=== PATIENT | female | born 1970 | race Caucasian/White ===

== ENCOUNTER 2023-03-24 20:22 | Emergency (ER) | payer SELFPAY ==
[2023-03-24 20:28] VITALS: BP 230/100; PULSE 73; RESP 18; TEMP 36.8; O2SAT 95; BMI 31.9
--- NOTE | 2023-03-24 20:38 | XR_ITS ---
The [address] [address] Patient Name: JUAN ARMSTRONG MRN: [id number] date: 1970 Sex: F Assigned Patient Location: ER Current Patient Location: ER Accession/Order Number: [id number] Exam Date: 03/24/2023 21:00 Report Date: 03/24/2023 21:20 At the request of: IRASEMA FRANCO Procedure: XR chest 1V EXAMINATION: XR chest 1V HISTORY: Abdominal pain COMPARISON: None. TECHNIQUE: Portable chest FINDINGS: The lung parenchyma is free of consolidation or infiltrate. No pneumothorax or pleural effusion. The cardiac, mediastinal and hilar contours are normal. The visualized osseous structures exhibit no gross abnormality. XR/XR chest 1V IMPRESSION: No acute cardiopulmonary abnormality. Electronically authenticated by: DOREEN CRAWFORD Date: 03/24/2023 21:20
--- NOTE | 2023-03-24 20:39 | CT_ITS ---
The [address] [address] Patient Name: JUAN ARMSTRONG MRN: [id number] date: 1970 Sex: F Assigned Patient Location: ER Current Patient Location: Accession/Order Number: [id number] Exam Date: 03/24/2023 21:00 Report Date: 03/24/2023 21:38 At the request of: IRASEMA FRANCO Procedure: CT abdomen pelvis w con EXAM: CT scan of the abdomen and pelvis using 100 mL of IV iodinated contrast. Dose reduction technique used: Automated exposure control and/or adjustment of the mA and/or kV according to patient size and/or use of iterative reconstruction technique. REASON FOR EXAM: abdominal pain COMPARISON: None FINDINGS: Mild diffuse colonic wall thickening. Left oophorectomy. Cholecystectomy. Normal appendix. No free fluid in the abdomen or pelvis. No free intraperitoneal air. No dilated loops of small bowel or colon. No hydronephrosis or obstructing renal or ureteral calculi. Liver, pancreas, spleen, bilateral kidneys, and bilateral adrenal glands are otherwise unremarkable. No lymphadenopathy in the abdomen or pelvis. Remainder unremarkable. CT/CT abdomen pelvis w con IMPRESSION: 1. Findings suggestive of colitis, correlate clinically. 2. Otherwise, no other acute abnormalities in the abdomen or pelvis. Electronically authenticated by: RENÉE CURRIE Date: 03/24/2023 21:38
[2023-03-24 20:49] LABS: Basophils Percent Auto 0.2 % (0.2-2.0); Eosinophils Percent Auto 0.3 % (0.9-7.0); Hematocrit 48.3 % (36.0-48.0); Hemoglobin 16.3 g/dL (12.0-16.0); Immature Granulocytes Abs Auto 0.02 10^3/uL (0.00-0.03); Immature Granulocytes Pct Auto 0.2 % (0.0-0.5); Lymphocytes Absolute Auto 2.5 10^3/uL (1.2-3.8); Lymphocytes Percent Auto 28.1 % (20.5-60.0); Mean Corpuscular HGB Conc 33.7 g/dL (29.9-35.2); Mean Corpuscular Hemoglobin 30.6 pg (26.7-34.0); Mean Corpuscular Volume 90.8 fL (81.0-99.0); Mean Platelet Volume 9.4 fL (9.5-13.5); Monocytes Absolute Auto 0.5 10^3/uL (0.3-0.8); Monocytes Percent Auto 5.7 % (1.7-12.0); Neutrophils Absolute Auto 5.7 10^3/uL (1.4-6.5); Neutrophils Percent Auto 65.5 % (43.0-75.0); Platelet Count 215 10^3/uL (150-450); Red Blood Count 5.32 10^6/uL (4.20-5.40); Red Cell Distribution Width 14.8 % (11.0-15.0); White Blood Count 8.7 10^3/uL (4.0-11.0)
--- NOTE | 2023-03-24 20:49 | ED.ABDPAIN1 ---
HPI - Abdominal Pain General Chief Complaint: Abdominal Pain Stated Complaint: Abdominal Pain Time Seen by Provider: 03/24/23 20:33 Source: patient Mode of arrival: walk-in Limitations: no limitations History of Present Illness HPI narrative: presents complaining of abdominal pain that started yesterday and has progressed. Denies nausea, vomiting or diarrhea. No dyspnea or fever. History of HTN but has not taken her medication because of her stomach pain she also has history of diabetes MD elicited complaint: Reports abdominal pain Related Data Home Medications Medication Instructions Recorded Confirmed carvedilol 25 mg tablet 25 mg PO Q12H 03/24/23 03/24/23 duloxetine 60 mg capsule,delayed 60 mg PO DAILY 03/24/23 03/24/23 release ferrous sulfate 325 mg (65 mg 325 mg PO BID 03/24/23 03/24/23 iron) tablet (FeroSul) glimepiride 4 mg tablet 4 mg PO DAILY 03/24/23 03/24/23 irbesartan 150 mg tablet 150 mg PO DAILY 03/24/23 03/24/23 metformin 500 mg tablet 500 mg PO BID 03/24/23 03/24/23 Allergies Allergy/AdvReac Type Severity Reaction Status Date / Time Sulfa (Sulfonamide Allergy Intermediate Verified 03/24/23 20:38 Antibiotics) Review of Systems ROS Status of ROS 10 or more systems reviewed and unremarkable except as noted in history and below Exam Constitutional Vital Signs, click to edit/add: Last Vital Signs Temp 98.2 F 03/24/23 20:28 Pulse 71 03/25/23 01:17 Resp 14 03/25/23 01:17 BP 142/68 H 03/25/23 01:55 Pulse Ox 94 L 03/25/23 01:17 O2 Del Method Room Air 03/25/23 01:17 Common normals: no apparent distress, average body habitus, oriented x3, healthy appearing, alert and well nourished [facility] Common normals: normocephalic and head/scalp atraumatic Eye Common normals: EOMs intact bilaterally, conjunctivae normal and no scleral icterus Respiratory Common normals: normal respiratory effort, no retractions and no use of accessory muscles Cardio Common normals: regular rate, regular rhythm, S1 normal heart sound and S2 normal heart sound GI Other: RUQ and epigastric tenderness Extremity Common normals: normal to inspection and full ROM Neuro Common normals: oriented x3, CN's II-XII intact bilaterally and moves all extremities Psych Appearance: grossly normal Course Vital Signs Vital signs: Vital Signs Temperature 98.2 F 03/24/23 20:28 Pulse Rate 73 03/24/23 20:28 Respiratory Rate 18 03/24/23 20:28 Blood Pressure 230/100 H 03/24/23 20:28 Pulse Oximetry 95 03/24/23 20:28 Oxygen Delivery Method Room Air 03/24/23 20:28 Temperature 98.2 F 03/24/23 20:28 Pulse Rate 71 03/25/23 01:17 Respiratory Rate 14 03/25/23 01:17 Blood Pressure 142/68 H 03/25/23 01:55 Pulse Oximetry 94 L 03/25/23 01:17 Oxygen Delivery Method Room Air 03/25/23 01:17 MDM - Abdominal Pain MDM Narrative Medical decision making narrative: patient s/p cholecystectomy. Presents with constant abdominal pain that started yesterday. Did not wax and wane or come and go. Tenderness epigastric and RUQ. CT with findings of colitis. Given dose of Flagyl and cipro in the department. Pain controlled with Fentanyl and solumedrol. Patient is on cymbalta and so Cipro was not continued. Discharged with a prescription for Augmentin and [place] for pain. Advised to follow up with her family doctor. Her BP was treated as she was not able to take her home BP meds due to her pain. BP decreased from 230 systolic to 180. Patient without headache or chest pain. She is to re start her maintenance BP medications when she gets home Lab Data Labs: Lab Results 03/24/23 Range/Units 20:42 WBC 8.7 (4.0-11.0) 10^3/uL RBC 5.32 (4.20-5.40) 10^6/uL Hgb 16.3 H (12.0-16.0) g/dL Hct 48.3 H (36.0-48.0) % MCV 90.8 (81.0-99.0) fL MCH 30.6 (26.7-34.0) pg MCHC 33.7 (29.9-35.2) g/dL RDW 14.8 (11.0-15.0) % Plt Count 215 (150-450) 10^3/uL MPV 9.4 L (9.5-13.5) fL Neut % (Auto) 65.5 (43.0-75.0) % Lymph % (Auto) 28.1 (20.5-60.0) % [place] % (Auto) 5.7 (1.7-12.0) % Eos % (Auto) 0.3 L (0.9-7.0) % Baso % (Auto) 0.2 (0.2-2.0) % Neut # (Auto) 5.7 (1.4-6.5) 10^3/uL Lymph # (Auto) 2.5 (1.2-3.8) 10^3/uL [place] # (Auto) 0.5 (0.3-0.8) 10^3/uL Eos # (Auto) 0.0 (0.0-0.7) 10^3/uL Baso # (Auto) 0.0 (0.0-0.1) 10^3/uL Abs Immat Gran (auto) 0.02 (0.00-0.03) 10^3/uL Imm/Tot Granulo (auto) 0.2 (0.0-0.5) % Sodium 134 L (136-145) mmol/L Potassium 3.8 (3.5-5.1) mmol/L Chloride 98 (98-107) mmol/L Carbon Dioxide 24.1 (21.0-32.0) mmol/L Anion Gap 15.7 BUN 6.0 L (7.0-18.0) mg/dL Creatinine 0.64 (0.55-1.02) mg/dL Est GFR ( Amer) >60 (>=60) Est GFR (Non-Af Amer) >60 (>=60) BUN/Creatinine Ratio 9.4 Glucose 175 H (74-106) mg/dL Lactate 0.9 (0.4-2.0) mmol/L Calcium 9.2 (8.5-10.1) mg/dL Total Bilirubin 0.6 (0.2-1.0) mg/dL AST 18 (15-37) U/L ALT 18 (14-59) U/L Alkaline Phosphatase 56 (46-116) U/L Troponin I High Sens 12.2 (4.0-51.3) pg/mL Total Protein 7.7 (6.4-8.2) g/dL Albumin 3.8 (3.4-5.0) g/dL Globulin 3.9 g/dL Albumin/Globulin Ratio 1.0 Lipase 25.0 (16.0-77.0) U/L Imaging Data CT scan - abdomen: Radiologist's impression: The [address] [address] [address] Scan Report Signed Patient: JUAN ARMSTRONG MR#: [id number] : 1970 Acct:[id number] Age/Sex: 52 / F ADM Date: 03/24/23 Loc: ER Attending Dr: Ordering Physician: Benjy Sanchez Date of Service: 03/24/23 Procedure(s): CT abdomen pelvis w con Accession Number(s): [id number] cc: Alex Romero M.D.~ The [address] [address] Patient Name: JUAN ARMSTRONG MRN: [id number] date: 1970 Sex: F Assigned Patient Location: ER Current Patient Location: ER Accession/Order Number: [id number] Exam Date: 03/24/2023 21:00 Report Date: 03/24/2023 21:38 At the request of: BENJY SANCHEZ Procedure: CT abdomen pelvis w con EXAM: CT scan of the abdomen and pelvis using 100 mL of IV iodinated contrast. Dose reduction technique used: Automated exposure control and/or adjustment of the mA and/or kV according to patient size and/or use of iterative reconstruction technique. REASON FOR EXAM: abdominal pain COMPARISON: None FINDINGS: Mild diffuse colonic wall thickening. Left oophorectomy. Cholecystectomy. Normal appendix. No free fluid in the abdomen or pelvis. No free intraperitoneal air. No dilated loops of small bowel or colon. No hydronephrosis or obstructing renal or ureteral calculi. Liver, pancreas, spleen, bilateral kidneys, and bilateral adrenal glands are otherwise unremarkable. No lymphadenopathy in the abdomen or pelvis. Remainder unremarkable. CT/CT abdomen pelvis w con IMPRESSION: 1. Findings suggestive of colitis, correlate clinically. 2. Otherwise, no other acute abnormalities in the abdomen or pelvis. Electronically authenticated by: RENÉE CURRIE Date: 03/24/2023 21:38 Dictated By: Renée Currie M.D. Signed By: 03/24/232139 DD/ 37 TD/TT: Streaming Media Specialist: Discharge Plan Discharge Chief Complaint: Abdominal Pain Clinical Impression: Hypertensive urgency, Colitis Patient Disposition: Home, Self-Care Time of Disposition Decision: 01:50 Prescriptions / Home Meds: No Action carvedilol 25 mg tablet 25 mg PO Q12H duloxetine 60 mg capsule,delayed release(DR/EC) 60 mg PO DAILY ferrous sulfate [FeroSul] 325 mg (65 mg iron) tablet 325 mg PO BID irbesartan 150 mg tablet 150 mg PO DAILY glimepiride 4 mg tablet 4 mg PO DAILY metformin 500 mg tablet 500 mg PO BID Instructions: Chronic Hypertension (ED), Colitis (ED) Additional Instructions: take your regular blood pressure medications when you get home. follow up with your doctor in a couple of days. return if increasing pain Stand Alone Forms: Portal Instructions Referrals: Alex Romero MD [Primary Care Provider] - 1 week Discharge Date/Time: 03/25/23 02:12
--- NOTE | 2023-03-24 20:52 | ECG_ITS ---
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
[2023-03-24 21:07] LABS: Lactate/Lactic Acid 0.9 mmol/L (0.4-2.0)
[2023-03-24 21:17] LABS: Alanine Aminotransferase 18 U/L (14-59); Albumin Level 3.8 g/dL (3.4-5.0); Alkaline Phosphatase 56 U/L (46-116); Anion Gap 15.7; Aspartate Amino Transferase 18 U/L (15-37); BUN Creatinine Ratio 9.4; Bilirubin Total 0.6 mg/dL (0.2-1.0); Calcium 9.2 mg/dL (8.5-10.1); Carbon Dioxide 24.1 mmol/L (21.0-32.0); Chloride 98 mmol/L (98-107); Estimated GFR (African America >60 (>=60); Estimated GFR (Non-African Ame >60 (>=60); Globulin 3.9 g/dL; Glucose 175 mg/dL (74-106); Potassium 3.8 mmol/L (3.5-5.1); Sodium 134 mmol/L (136-145); Total Protein 7.7 g/dL (6.4-8.2); Troponin I High Sensitivity 12.2 pg/mL (4.0-51.3)
[2023-03-24] MEDS: HYDRALAZINE HCL 20 MG/ML VIAL 5 MG IVP ×2 (21:19→23:04)
[2023-03-24] MEDS: FENTANYL CITRATE/PF 100 MCG/2 ML VIAL IV (21:19)
[2023-03-24] MEDS: 0.9 % SODIUM CHLORIDE 1,000 ML 100 ML IV (21:20)
[2023-03-24 21:34] VITALS: BP 180/85
[2023-03-24 22:09] VITALS: BP 180/88; PULSE 64; RESP 16; O2SAT 97
--- NOTE | 2023-03-24 22:10 | PC.NURSE ---
States has not taken her B/P medication in 2 days
[2023-03-24 23:04] VITALS: BP 180/88
[2023-03-24] MEDS: CIPROFLOXACIN IN 5 % DEXTROSE 400 MG/200 ML PIGGYBACK 200 MG IV (23:05)
[2023-03-24] MEDS: METHYLPREDNISOLONE SOD SUCC PF 125 MG/2 ML VIAL IVP (23:06)
[2023-03-24 23:58] VITALS: BP 219/90; PULSE 78; RESP 16; O2SAT 97
[2023-03-25] MEDS: METRONIDAZOLE/SODIUM CHLORIDE 500 MG/100 ML PREMIX 100 MG IV (00:06)
[2023-03-25] MEDS: CLONIDINE HCL 0.2 MG TABLET PO (00:53)
[2023-03-25 01:17] VITALS: BP 190/78; PULSE 71; RESP 14; O2SAT 94
[2023-03-25 01:55] VITALS: BP 142/68
[2023-03-25] MEDS: HYDROCODONE/ACET 5-325 MG TABLET 4 TAB PO (01:58)
== END 2023-03-25 02:12 | disposition home or self-care (01) ==
PROVIDERS: Emergency Provider Internal Medicine; PCP Family Medicine
DX: K52.9 Noninfective gastroenteritis and colitis, unspecified (principal); I16.0 Hypertensive urgency; Z90.49 Acquired absence of other specified parts of digestive tract; I10 Essential (primary) hypertension; E11.9 Type 2 diabetes mellitus without complications; Z79.4 Long term (current) use of insulin; Z90.721 Acquired absence of ovaries, unilateral
CPT/HCPCS: 36415; 71045; 74177; 80053; 83605; 83690; 84484; 85025; 93005; 96361; 96365; 96367; 96375; 96376; 99285; J2930; Q9967

== ENCOUNTER 2023-06-13 07:19 | Outpatient (OUT) | payer OTHER, SELFPAY ==
--- OUTSIDE RECORDS SUMMARY | 2023-06-13 07:22 | XMS_ITS | CCD ---
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 Performed By: #### C BC #### [facility] [address] [place] [address] Marcos Mcgregor PROF 14(COMP METB)on 022 Albumin [Mass/Vol] 3.7 g/dL Normal 3.5-5.0 [facility] Comment on above: Performed By: #### B MP #### [facility] [address] [place] [address] Dr. Jonatan Manclila Albumin/Globulin [Mass ratio] 1.1 {ratio} Normal [facility] Comment on above: Performed By: #### B MP #### [facility] [address] [place] [address] Dr. Jonatan Mancilla ALP [Catalytic activity/Vol] 66 U/L Normal 38-126 [facility] Comment on above: Performed By: #### B MP #### [facility] [address] [place] [address] Dr. Jonatan Mancilla ALT [Catalytic activity/Vol] 62 U/L Critically high 9-52 [facility] Comment on above: Performed By: #### B MP #### [facility] [address] [place] [address] Dr. Jonatan Mancilla Anion gap [Moles/Vol] 12.3 mmol/L Normal [facility] Comment on above: Performed By: #### B MP #### [facility] [address] [place] [address] Dr. Jonatan Mancilla AST [Catalytic activity/Vol] 35 U/L Normal 14-36 [facility] Comment on above: Performed By: #### B MP #### [facility] [address] [place] [address] Dr. Jonatan Mancilla Bilirubin [Mass/Vol] 0.5 mg/dL Normal 0.2-1.3 [facility] Comment on above: Performed By: #### B MP #### [facility] [address] [address] [address] Jonatan Mancilla Calcium [Mass/Vol] 9.2 mg/dL Normal 8.4-10.2 [facility] Comment on above: Performed By: #### B MP #### [facility] [address] [address] [address] Jonatan Mancilla Chloride [Moles/Vol] 102 mmol/L Normal 98-107 [facility] Comment on above: Performed By: #### B MP #### [facility] [address] [address] [address] Jonatan Mancilla CO2 [Moles/Vol] 29.3 mmol/L Normal 22.0-30.0 [facility] Comment on above: Performed By: #### B MP #### [facility] [address] [place] [address] Dr. Jonatan Mancilla Creatinine [Mass/Vol] 0.66 mg/dL Normal 0.52-1.04 [facility] Comment on above: Performed By: #### B MP #### [facility] [address] [address] [address] Jonatan Mancilla EGFR-AF ENGLISH >60 Normal >=60 [facility] Comment on above: Performed By: #### B MP #### [facility] [address] [place] [address] Dr. Jonatan Mancilla EGFR-NON AF ENGLISH >60 Normal >=60 [facility] Comment on above: Performed By: #### B MP #### [facility] [address] [place] [address] Dr. Jonatan Mancilla Globulin (S) [Mass/Vol] 3.5 g/dL Normal [facility] Comment on above: Performed By: #### B MP #### [facility] [address] [address] [address] Jonatan Mancilla Glucose [Mass/Vol] 99 mg/dL Normal 74-106 [facility] Comment on above: Performed By: #### B MP #### [facility] [address] [address] [address] Jonatan Mancilla Potassium [Moles/Vol] 4.6 mmol/L Normal 3.4-5.0 [facility] Comment on above: Performed By: #### B MP #### [facility] [address] [place] [address] Dr. Jonatan Mancilla Protein [Mass/Vol] 7.2 g/dL Normal 6.1-8.2 [facility] Comment on above: Performed By: #### B MP #### [facility] [address] [place] [address] Dr. Jonatan Mancilla Sodium [Moles/Vol] 139 mmol/L Normal 137-145 [facility] Comment on above: Performed By: #### B MP #### [facility] [address] [place] [address] Dr. Jonatan Mancilla Urea nitrogen [Mass/Vol] 17.0 mg/dL Normal 7.0-17.0 [facility] Comment on above: Performed By: #### B MP #### [facility] [address] [place] [address] Dr. Jonatan Mancilla Urea nitrogen/Creatinine [Mass ratio] 25.8 mg/mg Normal [facility] Comment on above: Performed By: #### B MP #### [facility] [address] [place] [address] Dr. Jonatan Mancilla TSHon 06-09-2021 TSH 1.030 uIU/mL Normal 0.470-4.[address] [facility] Comment on above: Performed By: #### C BC #### [facility] [address] [place] [address] Marcos Mcgregor TSH RANGE SEE BELOW Normal [facility] Comment on above: Result Comment: <0.3 4 UIU/ml HYPERTHYROID 0.34-5.60 UIU/ml EUTHYROID >5.60 UIU/ml HYPOTHYROID Performed By: #### C BC #### [facility] [address] [place] [address] Marcos Mcgregor VITAMIN B12on 06-09-2021 Cobalamin (Vitamin B12) [Mass/Vol] 590.0 pg/mL Normal 239.0-931.0 [facility] Comment on above: Performed By: #### I KATHIA, VITAD, VITB12 #### [facility] [address] [place] [address] Dr. Jonatan Mancilla VITAMIN D 25 OHon 06-09-2021 VIT D 25-OH 29.2 ng/mL Normal [facility] Comment on above: Performed By: #### I KATHIA, VITAD, VITB12 #### [facility] [address] [place] [address] Dr. Jonatan Mancilla VIT D RANGES SEE BELOW Normal [facility] Comment on above: Result Comment: <20 ng/mL Vit D deficient 20 - <30 ng/mL Vit D insufficient 30 - 100 ng/mL Vit D sufficient >100 ng/mL Potential Toxicity Performed By: #### I KATHIA, VITAD, VITB12 #### [facility] [address] [place] [address] Dr. Jonatan Mancilla Covid-19 PCR ([facility])on 04-22 SARS-CoV-2 (COVID-19) RNA FANNY+probe Ql (Unsp spec) Not detected Normal NOT DETECTED [facility] Comment on above: Result Comment: This test is not yet approved or cleared by the [place] FDA. When there are no FDA-approved or cleared tests available, and other criteria are met, FDA can make tests available under an emergency access mechanism called an Emergency Use Authorization (EUA). The EUA for this test is supported by the [place] of Health and Human Service's (HHS's) declaration that circumstances exist to justify the emergency use of in vitro diagnostics for the detection and/or diagnosis of the virus that causes COVID-19. This EUA will remain in effect (meaning this test can be used) for the duration of the COVID-19 declaration justifying emergency of IVDs, unless it is terminated or revoked by FDA (after which the test may no longer be used). When diagnostic testing is negative, the possibility of a false negative should be considered in the context of a patient's recent exposures and the presence of clinical signs and symptoms consistent with SARS-CoV-2. Performed By: #### C BC #### [facility] [address] [place] [address] Marcos Mcgregor Outside Colonoscopyon 2020 Outside Colonoscopy [id number]:127 Normal [facility] POINT OF CARE GLUCOSEon 12-21 Glucose [Mass/Vol] 123 mg/dL Critically high 74-106 [facility] Comment on above: Performed By: #### P OCGLUC #### [facility] [address] [address] [address] Jonatan Mancilla Lab Reportson 01-02-2021 Lab Reports [id number]:127 Normal [facility] Covid-19 PCR ([facility])on 12-21 SARS-CoV-2 (COVID-19) RNA FANNY+probe Ql (Unsp spec) Not detected Normal NOT DETECTED [facility] Comment on above: Result Comment: This test is not yet approved or cleared by the [place] FDA. When there are no FDA-approved or cleared tests available, and other criteria are met, FDA can make tests available under an emergency access mechanism called an Emergency Use Authorization (EUA). The EUA for this test is supported by the [employer] of Health and Human Service's (HHS's) declaration that circumstances exist to justify the emergency use of in vitro diagnostics for the detection and/or diagnosis of the virus that causes COVID-19. This EUA will remain in effect (meaning this test can be used) for the duration of the COVID-19 declaration justifying emergency of IVDs, unless it is terminated or revoked by FDA (after which the test may no longer be used). When diagnostic testing is negative, the possibility of a false negative should be considered in the context of a patient's recent exposures and the presence of clinical signs and symptoms consistent with SARS-CoV-2. Performed By: #### B MP #### [facility] [address] [address] [address] Jonatan Mancilla [facility] Letter [facility] December 22, 2020 Alo Romero, [address] [place] [address] [place] [address] Re: RADHA KNIGHT Date of : 1970 Thank you for your referral of Radha Knight who was seen on consultation on December 16, 2020, for screening colonoscopy. I have enclosed my consultation notes for your review. I will be happy to follow Radha. Sincerely, Meghann Dias MD General Surgery Normal [facility] Consent for Procedure/Surger yon 12-19-2020 Consent for Procedure/Surgery [id number]:127 Normal [facility] Ambulatory Clinical Summaryo n 12-16-2020 Ambulatory Clinical Summary {[id number]}CD:[id number] Normal [facility] Patient Educationon 12-17-19 21 Patient Education Colonoscopy A colonoscopy is an exam to evaluate your entire colon. In this exam, your colon is cleansed. A long fiberoptic tube is inserted through your rectum and into your colon. The fiberoptic scope (endoscope ) is a long bundle of enclosed and very flexible fibers. These fibers transmit light to the area examined and send images from that area to your caregiver. Discomfort is usually minimal. You may be given a drug to help you sleep (sedative ) during or prior to the procedure. This exam helps to detect lumps (tumors ), polyps, inflammation, and areas of bleeding. Your caregiver may also take a small piece of tissue (biopsy ) that will be examined under a microscope. LET YOUR CAREGIVER KNOW ABOUT: ? Allergies to food or medicine. ? Medicines taken, including vitamins, herbs, eyedrops, dsay-rjg-zerixpd medicines, and creams. ? Use of steroids (by mouth or creams). ? Previous problems with anesthetics or numbing medicines. ? History of bleeding problems or blood clots. ? Previous surgery. ? Other health problems, including diabetes and kidney problems. ? Possibility of , if this applies. BEFORE THE PROCEDURE ? A clear liquid diet may be required for 2 days before the exam. ? Ask your caregiver about changing or stopping your regular medications. ? Liquid injections (enemas ) or laxatives may be required. ? A large amount of electrolyte solution may be given to you to drink over a short period of time. This solution is used to clean out your colon. ? You should be present 60 minutes prior to your procedure or as directed by your caregiver. AFTER THE PROCEDURE ? If you received a sedative or pain relieving medication, you will need to arrange for someone to drive you home. ? Occasionally, there is a little blood passed with the first bowel movement. Do not be concerned. FINDING OUT THE RESULTS OF YOUR TEST Not all test results are available during your visit. If your test results are not back during the visit, make an appointment with your caregiver to find out the results. Do not assume everything is normal if you have not heard from your caregiver or the medical facility. It is important for you to follow up on all of your test results. HOME CARE INSTRUCTIONS ? It is not unusual to pass moderate amounts of gas and experience mild abdominal cramping following the procedure. This is due to air being used to inflate your colon during the exam. Walking or a warm pack on your belly (abdomen ) may help. ? You may resume all normal meals and activities after sedatives and medicines have worn off. ? Only take vhat-zrh-srkdjps or prescription medicines for pain, discomfort, or fever as directed by your caregiver. Do not use aspirin or blood thinners if a biopsy was taken. Consult your caregiver for medicine usage if biopsies were taken. SEEK IMMEDIATE MEDICAL CARE IF: ? You have a fever. ? You pass large blood clots or fill a toilet with blood following the procedure. This may also occur 10 to 14 days following the procedure. This is more likely if a biopsy was taken. ? You develop abdominal pain that keeps getting worse and cannot be relieved with medicine. Document Released: 04/05/2001 Document Revised: 06/30/2012 Document Reviewed: 11/18/2008 ExitCare? Patient Information ?2014 [employer]. Radiology Colonoscopy, Adult, Care After This sheet gives you information about how to care for yourself after your procedure. Your health care provider may also give you more specific instructions. If you have problems or questions, contact your health care provider. What can I expect after the procedure? After the procedure, it is common to have: ? A small amount of blood in your stool for 24 hours after the procedure. ? Some gas. ? Mild abdominal cramping or bloating. Follow these instructions at home: General instructions ? For the first 24 hours after the procedure: ? Do not drive or use machinery. ? Do not sign important documents. ? Do not drink alcohol. ? Do your regular daily activities at a slower pace than normal. ? Eat soft, bymk-pm-rdmfdi foods. ? Take ktkx-gsb-qnfqgka or prescription medicines only as told by your health care provider. Relieving cramping and bloating ? Try walking around when you have cramps or feel bloated. ? Apply heat to your abdomen as told by your health care provider. Use a heat source that your health care provider recommends, such as a moist heat pack or a heating pad. ? Place a towel between your skin and the heat source. ? Leave the heat on for 20?30 minutes. ? Remove the heat if your skin turns bright red. This is especially important if you are unable to feel pain, heat, or cold. You may have a greater risk of getting burned. Eating and drinking ? Drink enough fluid to keep your urine pale yellow. ? Resume your normal diet as instructed by your h (more content not included)... Normal [facility] HEPATITIS PANEL, ACUTEon HBsAg Screen Negative Normal Negative [facility] Comment on above: Performed By: #### H EPACUT #### [facility] [address] Hep A Ab, IgM Negative Normal Negative [facility] Comment on above: Performed By: #### H EPACUT #### [facility] [address] [id number] Marcos Meche Hep B Core Ab, IgM Negative Normal Negative [facility] Comment on above: Performed By: #### H EPACUT #### [facility] [address] Hep C Virus Ab <0.1 Normal 0.0-0.9 [facility] Comment on above: Result Comment: Nega tive: < 0.8 Indeterminate: 0.8 - 0.9 Positive: > 0.9 . The CDC recommends that a positive HCV antibody result be followed up with a HCV Nucleic Acid Amplification test ([id number]). Performed By: #### H EPACUT #### [facility] [address] [place], [place] [id number] Marcosjeremy Rainen BNPon 11-30-2020 Natriuretic peptide B (Bld) [Mass/Vol] 65.0 pg/mL Normal <=900.0 [facility] Comment on above: Performed By: #### C BC #### [facility] [address] [place], [place] [id number] Marcos Meche CBC AUTO DIFFon 11-30-2020 BASO # 0.0 103/ul Normal 0.0-0.1 [facility] Comment on above: Performed By: #### C BC #### [facility] [address] [place], [place] [id number] Marcos Meche Basophils/100 WBC (Bld) 0.2 % Normal 0.2-2.0 [facility] Comment on above: Performed By: #### C BC #### [facility] [address] [place] [address] Marcos Meche EO # 0.3 103/ul Normal 0.0-0.7 [facility] Comment on above: Performed By: #### C BC #### [facility] [address] [place], [place] [id number] Marcos Mcgregor Eosinophils/100 WBC (Bld) 2.8 % Normal 0.9-7.0 [facility] Comment on above: Performed By: #### C BC #### [facility] [address] [place], [place] [id number] Marcosjeremy Mcgregor Erythrocyte distribution width (RBC) [Ratio] 15.3 % Critically high 11.0-15.0 [facility] Comment on above: Performed By: #### C BC #### [facility] [address] [place], [place] [id number] Marcos Meche Hematocrit (Bld) [Volume fraction] 41.8 % Normal 36.0-48.0 [facility] Comment on above: Performed By: #### C BC #### [facility] [address] [place], [place] [id number] Marcos Meche Hemoglobin (Bld) [Mass/Vol] 13.8 g/dL Normal 12.0-16.0 [facility] Comment on above: Performed By: #### C BC #### [facility] [address] [place] [address] Marcos Meche IG # 0.01 10e3/ul Normal 0.00-0.03 [facility] Comment on above: Performed By: #### C BC #### [facility] [address] [address] Marcos Meche IG % 0.1 % Normal 0.0-0.5 [facility] Comment on above: Performed By: #### C BC #### [facility] [address] [place] [address] Marcos Meche LYMPH # 4.3 103/ul Critically high 1.2-3.8 [facility] Comment on above: Performed By: #### C BC #### [facility] [address] [place] [address] Marcos Meche Lymphocytes/100 WBC (Bld) 46.3 % Normal 20.5-60.0 [facility] Comment on above: Performed By: #### C BC #### [facility] [address] [place], [place] [id number] Marcos Meche MANUAL DIFF REQ NO Normal [facility] Comment on above: Performed By: #### C BC #### [facility] [address] [place], [place] [id number] Marcos Meche MCH (RBC) [Entitic mass] 29.6 pg Normal 26.7-34.0 [facility] Comment on above: Performed By: #### C BC #### [facility] [address] [place], [place] [id number] Marcos Meche MCHC (RBC) [Mass/Vol] 33.0 g/dL Normal 29.9-35.2 [facility] Comment on above: Performed By: #### C BC #### [facility] [address] [place], [place] [id number] Marcos Meche MCV (RBC) [Entitic vol] 89.5 fL Normal 81.0-99.0 [facility] Comment on above: Performed By: #### C BC #### [facility] [address] [place], [place] [id number] Marcos Meche MONO # 0.6 103/ul Normal 0.3-0.8 [facility] Comment on above: Performed By: #### C BC #### [facility] [address] [id number] Marcos Meche Monocytes/100 WBC (Bld) 6.6 % Normal 1.7-12.0 [facility] Comment on above: Performed By: #### C BC #### [facility] [address] [place] [address] Marcos Meche NEUT # 4.1 103/ul Normal 1.4-6.5 [facility] Comment on above: Performed By: #### C BC #### [facility] [address] [place] [address] Marcos Meche Neutrophils/100 WBC (Bld) 44.0 % Normal 43.0-75.0 [facility] Comment on above: Performed By: #### C BC #### [facility] [address] [place], [place] [id number] Marcosjeremy Rainen Platelet mean volume (Bld) [Entitic vol] 10.0 fL Normal 9.5-13.5 [facility] Comment on above: Performed By: #### C BC #### [facility] [address] [place], [place] [id number] Marcos Meche PLT 220 103/ul Normal 150-450 [facility] Comment on above: Performed By: #### C BC #### [facility] [address] [place], [place] [id number] Marcos Meche RBC 4.67 106/ul Normal 4.20-5.40 [facility] Comment on above: Performed By: #### C BC #### [facility] [address] [place], [place] [id number] Marcos Meche WBC 9.3 103/ul Normal 4.0-11.0 [facility] Comment on above: Performed By: #### C BC #### [facility] [address] [place], [place] [id number] Marcos Meche FREE THYROXINE INDEX T7on FTI 3.05 Normal [facility] Comment on above: Performed By: #### C BC #### [facility] [address] [place] [address] Marcos Mcgregor T3U 35.0 % Normal 23.5-40.5 [facility] Comment on above: Performed By: #### C BC #### [facility] [address] [place] [address] Marcos Mcgregor T4 [Mass/Vol] 8.70 ug/dL Normal 5.53-11.00 [facility] Comment on above: Performed By: #### C BC #### [facility] [address] [place] [address] Marcos Rainen GLYCOHEMOGLOBIN A1Con 2020 ADA RECOMMENDATION ADA THERAPEUTIC TARGET 6.0 - 7.0 ACTION SUGGESTED > 7.0 Normal [facility] Comment on above: Performed By: #### B MP #### [facility] [address] [place] [address] Dr. Jonatan Mancilla Glucose [Mass/Vol] 160 mg/dL Normal [facility] Comment on above: Performed By: #### B MP #### [facility] [address] [place] [address] Dr. Jonatan Mancilla HbA1c (Bld) [Mass fraction] 7.2 % Critically high <=6.0 [facility] Comment on above: Performed By: #### B MP #### [facility] [address] [place] [address] Dr. Jonatan Mancilla IRONon 11-30-2020 Iron [Mass/Vol] 35.0 ug/dL Critically low 37.0-170.0 [facility] Comment on above: Performed By: #### V ITAD, IRON #### [facility] [address] [place], [place] [id number] Marcosjeremy Mcgregor LIPID PROFILEon 11-30-2020 CHOL-HDL RATIO NORM SEE BELOW Normal [facility] Comment on above: Result Comment: 3.3 - 4.4 LOW RISK 4.4 - 7.1 AVERAGE RISK 7.1 - 11.0 MODERATE RISK >11.0 HIGH RISK Performed By: #### C BC #### [facility] [address], [place] [address] Marcos Meche Cholesterol [Mass/Vol] 154 mg/dL Normal <=200 [facility] Comment on above: Performed By: #### C BC #### [facility] [address], [place] [address] Marcos Meche Cholesterol in HDL [Mass/Vol] 54 mg/dL Normal [facility] Comment on above: Performed By: #### C BC #### [facility] [address], [place] [address] Marcos Meche Cholesterol in LDL [Mass/Vol] 80.6 mg/dL Normal [facility] Comment on above: Performed By: #### C BC #### [facility] [address], [place] [address] Marcos Meche Cholesterol.total/C holesterol in HDL [Mass ratio] 2.9 {ratio} Normal [facility] Comment on above: Performed By: #### C BC #### [facility] [address], [place] [address] Marcos Meche HDL NORMAL > or = 60 mg/dl - LO W CARDIOVASCULAR RISK <40 mg/dl - HIGH CARDIOVASCULAR RISK Normal [facility] Comment on above: Performed By: #### C BC #### [facility] [address], [place] [address] Marcos Meche LDL CALC NORMAL SEE BELOW Normal [facility] Comment on above: Result Comment: <100 mg/dl OPTIMAL 100 - 129 mg/dl NEAR OR ABOVE OPTIMAL 130 - 159 mg/dl BORDERLINE HIGH 160 - 189 mg/dl HIGH >190 mg/dl VERY HIGH Performed By: #### C BC #### [facility] [address], [place] [address] Marcos Meche Triglyceride [Mass/Vol] 97 mg/dL Normal <=150 [facility] Comment on above: Performed By: #### C BC #### [facility] [address], [place] [address] Marcos Meche VLDL CALC 19.4 mg/dL Normal [facility] Comment on above: Performed By: #### C BC #### [facility] [address] [place] [id number] Marcos Meche MAGNESIUMon 11-30-2020 Magnesium [Mass/Vol] 2.1 mg/dL Normal 1.6-2.3 [facility] Comment on above: Performed By: #### C BC #### [facility] [address] [place], [place] [id number] Marcos Meche PROF 14(COMP METB)on 021 Albumin [Mass/Vol] 3.8 g/dL Normal 3.5-5.0 [facility] Comment on above: Performed By: #### C BC #### [facility] [address] [place], [place] [phone] Marcos Meche Albumin/Globulin [Mass ratio] 1.2 {ratio} Normal [facility] Comment on above: Performed By: #### C BC #### [facility] [address] [place], [place] [phone] Marcos Meche ALP [Catalytic activity/Vol] 55 U/L Normal 38-126 [facility] Comment on above: Performed By: #### C BC #### [facility] [address] [place] [id number] Marcos Meche ALT [Catalytic activity/Vol] 65 U/L Critically high 9-52 [facility] Comment on above: Performed By: #### C BC #### [facility] [address] [place], [place] [phone] Marcos Meche Anion gap [Moles/Vol] 14.7 mmol/L Normal [facility] Comment on above: Performed By: #### C BC #### [facility] [address] [place] [id number] Marcos Meche AST [Catalytic activity/Vol] 41 U/L Critically high 14-36 [facility] Comment on above: Performed By: #### C BC #### [facility] [address] [place], [place] [id number] Marcos Meche Bilirubin [Mass/Vol] 0.4 mg/dL Normal 0.2-1.3 [facility] Comment on above: Performed By: #### C BC #### [facility] [address] [id number] Marcos Meche Calcium [Mass/Vol] 9.4 mg/dL Normal 8.4-10.2 [facility] Comment on above: Performed By: #### C BC #### [facility] [address] [id number] Marcos Meche Chloride [Moles/Vol] 101 mmol/L Normal 98-107 [facility] Comment on above: Performed By: #### C BC #### [facility] [address] [id number] Marcos Meche CO2 [Moles/Vol] 26.0 mmol/L Normal 22.0-30.0 [facility] Comment on above: Performed By: #### C BC #### [facility] [address] [address] Marcos Meche Creatinine [Mass/Vol] 1.64 mg/dL Critically high 0.52-1.04 [facility] Comment on above: Performed By: #### C BC #### [facility] [address] [id number] Marcos Meche EGFR-AF ENGLISH 40 mL/min/1.73m2 Critically low >=60 [facility] Comment on above: Performed By: #### C BC #### [facility] [address] [id number] Marcos Meche EGFR-NON AF ENGLISH 33 mL/min/1.73m2 Critically low >=60 [facility] Comment on above: Performed By: #### C BC #### [facility] [address] [phone] Marcos Meche Globulin (S) [Mass/Vol] 3.3 g/dL Normal [facility] Comment on above: Performed By: #### C BC #### [facility] [address] [phone] Marcos Meche Glucose [Mass/Vol] 83 mg/dL Normal 74-106 [facility] Comment on above: Performed By: #### C BC #### [facility] [address] [phone] Marcos Meche Potassium [Moles/Vol] 4.7 mmol/L Normal 3.4-5.0 [facility] Comment on above: Performed By: #### C BC #### [facility] [address] [phone] Marcos Meche Protein [Mass/Vol] 7.1 g/dL Normal 6.1-8.2 [facility] Comment on above: Performed By: #### C BC #### [facility] [address] [address] Marcos Meche Sodium [Moles/Vol] 137 mmol/L Normal 137-145 [facility] Comment on above: Performed By: #### C BC #### [facility] [address] [place] [address] Marcos Meche Urea nitrogen [Mass/Vol] 32.0 mg/dL Critically high 7.0-17.0 [facility] Comment on above: Performed By: #### C BC #### [facility] [address] [place] [address] Marcos Meche Urea nitrogen/Creatinine [Mass ratio] 19.5 mg/mg Normal [facility] Comment on above: Performed By: #### C BC #### [facility] [address] [place], [place] [phone] Marcos Meche TSHon 11-30-2020 TSH 1.331 uIU/mL Normal 0.470-4.[address] [facility] Comment on above: Performed By: #### C BC #### [facility]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
[2023-06-13 07:42] LABS: Basophils Percent Auto 0.8 % (0.2-2.0); Eosinophils Percent Auto 0.6 % (0.9-7.0); Hematocrit 47.9 % (36.0-48.0); Hemoglobin 16.3 g/dL (12.0-16.0); Immature Granulocytes Abs Auto 0.01 10^3/uL (0.00-0.03); Immature Granulocytes Pct Auto 0.2 % (0.0-0.5); Lymphocytes Absolute Auto 2.4 10^3/uL (1.2-3.8); Lymphocytes Percent Auto 45.1 % (20.5-60.0); Mean Corpuscular Hemoglobin 31.3 pg (26.7-34.0); Mean Corpuscular Volume 91.9 fL (81.0-99.0); Mean Platelet Volume 9.1 fL (9.5-13.5); Monocytes Absolute Auto 0.6 10^3/uL (0.3-0.8); Monocytes Percent Auto 12.2 % (1.7-12.0); Neutrophils Absolute Auto 2.2 10^3/uL (1.4-6.5); Neutrophils Percent Auto 41.1 % (43.0-75.0); Platelet Count 175 10^3/uL (150-450); Red Blood Count 5.21 10^6/uL (4.20-5.40); Red Cell Distribution Width 15.6 % (11.0-15.0); White Blood Count 5.3 10^3/uL (4.0-11.0)
--- NOTE | 2023-06-13 07:50 | CT_ITS ---
The [address] [address] Patient Name: JUAN ARMSTRONG MRN: [id number] date: 1970 Sex: F Assigned Patient Location: CT Current Patient Location: CT Accession/Order Number: [id number] Exam Date: 06/13/2023 07:44 Report Date: 06/13/2023 10:02 At the request of: ALO WALLIS Procedure: CT lung screening low-dose EXAM: CT lung screening low-dose HISTORY: Well Adult Z00.00 ; technologist notes state lung cancer screening, smoker, chest congestion. COMPARISON: CT chest/abdomen/pelvis dated 11/30/2019. TECHNIQUE: Routine low-dose CT lung screen without intravenous contrast. FINDINGS: Cardiovascular: Severe multivessel coronary artery calcifications. Mild atheromatous calcification thoracic aorta. Mild atheromatous calcification at both subclavian arteries. Lungs: Mild peribronchial thickening consistent with acute and/or chronic bronchitis. Nodules: New 0.2 cm noncalcified right apical nodule (series 3 image 22). New 0.2 cm noncalcified right upper lobe nodule (series 3 image 31). Stable 0.2 cm noncalcified right upper lobe nodule (series 3 image 38). Lymphadenopathy: There are no pathologically enlarged axillary, mediastinal or hilar lymph nodes. Other: The trachea, esophagus and thyroid gland are unremarkable. Upper abdomen: There are a couple calcified granuloma within the liver. Stable mild hypertrophy of the left adrenal gland. Osseous: There are paravertebral ossifications at numerous levels along the spine. CT/CT lung screening low-dose IMPRESSION: Mild peribronchial thickening consistent with acute and/or chronic bronchitis. There are a couple new 0.2 cm noncalcified nodules at the right lung apex and within the right upper lobe and a stable 0.2 cm noncalcified nodule within the right upper lobe. There are no pathologically enlarged lymph nodes. Severe multivessel coronary artery calcifications. Stable mild hypertrophy of the left adrenal gland. Lung rads score 2. A low-dose CT lung screen examination in 12 months is recommended. Electronically authenticated by: YUSRA GARCIA Date: 06/13/2023 10:02
[2023-06-13 11:02] LABS: Alanine Aminotransferase 22 U/L (14-59); Albumin Globulin Ratio 0.9; Albumin Level 3.4 g/dL (3.4-5.0); Alkaline Phosphatase 60 U/L (46-116); Anion Gap 16.1; Aspartate Amino Transferase 24 U/L (15-37); BUN Creatinine Ratio 14.9; Bilirubin Total 0.3 mg/dL (0.2-1.0); Chloride 106 mmol/L (98-107); Chol HDL Ratio 2.7; Cholesterol 192 mg/dL (<=200); Estimated GFR (African America >60 (>=60); Estimated GFR (Non-African Ame >60 (>=60); Free T3 2.61 pg/mL (2.18-3.98); Globulin 3.9 g/dL; Glucose 85 mg/dL (74-106); HDL Cholesterol 72 mg/dL (40-60); Potassium 4.1 mmol/L (3.5-5.1); Sodium 144 mmol/L (136-145); Thyroid Stimulating Hormone 1.098 uIU/mL (0.358-3.740); Total Protein 7.3 g/dL (6.4-8.2); Triglycerides 58 mg/dL (<=150); VLDL CHOLESTEROL 11.6 mg/dL
[2023-06-13 12:03] LABS: Estimated Average Glucose 120 mg/dL; Glycohemoglobin A1C 5.8 % (4.5-6.2)
== END 2023-06-13 07:20 | disposition home or self-care (01) ==
LOC: CT 07:20
PROVIDERS: PCP Family Medicine; Visit Provider Family Medicine
DX: Z00.00 Encounter for general adult medical examination without abnormal findings (principal); E78.5 Hyperlipidemia, unspecified; R73.09 Other abnormal glucose; Z12.12 Encounter for screening for malignant neoplasm of rectum; R91.8 Other nonspecific abnormal finding of lung field
CPT/HCPCS: 36415; 71271; 80053; 80061; 83036; 84436; 84443; 84481; 85025

== ENCOUNTER 2024-03-02 08:37 | Outpatient (OUT) | payer OTHER, SELFPAY ==
[2024-03-02 10:11] LABS: Basophils Absolute Auto 0.1 10^3/uL (0.0-0.1); Basophils Percent Auto 0.6 % (0.2-2.0); Eosinophils Absolute Auto 0.2 10^3/uL (0.0-0.7); Eosinophils Percent Auto 2.6 % (0.9-7.0); Hematocrit 45.8 % (36.0-48.0); Hemoglobin 15.2 g/dL (12.0-16.0); Immature Granulocytes Abs Auto 0.02 10^3/uL (0.00-0.03); Immature Granulocytes Pct Auto 0.2 % (0.0-0.5); Lymphocytes Absolute Auto 2.9 10^3/uL (1.2-3.8); Lymphocytes Percent Auto 35.4 % (20.5-60.0); Mean Corpuscular HGB Conc 33.2 g/dL (29.9-35.2); Mean Corpuscular Hemoglobin 31.3 pg (26.7-34.0); Mean Corpuscular Volume 94.4 fL (81.0-99.0); Mean Platelet Volume 9.3 fL (9.5-13.5); Monocytes Absolute Auto 0.5 10^3/uL (0.3-0.8); Monocytes Percent Auto 6.5 % (1.7-12.0); Neutrophils Absolute Auto 4.5 10^3/uL (1.4-6.5); Neutrophils Percent Auto 54.7 % (43.0-75.0); Platelet Count 206 10^3/uL (150-450); Red Blood Count 4.85 10^6/uL (4.20-5.40); Red Cell Distribution Width 14.6 % (11.0-15.0); White Blood Count 8.3 10^3/uL (4.0-11.0)
[2024-03-02 11:31] LABS: Alanine Aminotransferase 19 U/L (14-59); Albumin Globulin Ratio 1.1; Albumin Level 3.5 g/dL (3.4-5.0); Alkaline Phosphatase 56 U/L (46-116); Anion Gap 12.8; Aspartate Amino Transferase 25 U/L (15-37); BUN Creatinine Ratio 14.3; Bilirubin Total 0.5 mg/dL (0.2-1.0); Calcium 9.5 mg/dL (8.5-10.1); Carbon Dioxide 27.5 mmol/L (21.0-32.0); Chloride 104 mmol/L (98-107); Chol HDL Ratio 2.6; Cholesterol 190 mg/dL (<=200); Estimated GFR (African America >60 (>=60 mL/min/1.73m^2); Estimated GFR (Non-African Ame >60 (>=60 mL/min/1.73m^2); Free T3 2.61 pg/mL (2.18-3.98); Globulin 3.3 g/dL; Glucose 86 mg/dL (74-106); HDL Cholesterol 72 mg/dL (40-60); Potassium 4.3 mmol/L (3.5-5.1); Sodium 140 mmol/L (136-145); Thyroid Stimulating Hormone 0.722 uIU/mL (0.358-3.740); Total Protein 6.8 g/dL (6.4-8.2); Triglycerides 68 mg/dL (<=150); VLDL CHOLESTEROL 13.6 mg/dL
[2024-03-02 11:46] LABS: Estimated Average Glucose 111 mg/dL; Glycohemoglobin A1C 5.5 % (4.5-6.2)
[2024-03-03 05:07] LABS: Insulin 7.8 uIU/mL (2.6-24.9)
== END 2024-03-02 08:38 | disposition home or self-care (01) ==
LOC: LAB 08:40
PROVIDERS: PCP Family Medicine; Visit Provider Family Medicine
DX: Z00.00 Encounter for general adult medical examination without abnormal findings (principal); E78.5 Hyperlipidemia, unspecified; R53.83 Other fatigue; R73.09 Other abnormal glucose; I10 Essential (primary) hypertension; D64.9 Anemia, unspecified; E03.9 Hypothyroidism, unspecified
CPT/HCPCS: 36415; 80053; 80061; 83036; 83525; 83540; 84436; 84443; 84481; 85025

== ENCOUNTER 2024-03-24 12:33 | Outpatient (REF) | payer OTHER, SELFPAY ==
--- OUTSIDE RECORDS SUMMARY | 2024-03-24 12:45 | XMS_ITS | CCD ---
Author Organization [facility] Care Team Providers Care Manager Economic Name Role Phone Alo Romero Primary Care Provider [phone] [employer] [facility], [place] Consulting Radhika vailable EAN DELGADO Attending Unavailab ALO Alexis Primary Care Unavailable EAN DELGADO Admitting Unavailab EAN Gunderson Referring Unavailab ALO Alexis Primary Care Unavailable Alo Romero Primary Care Provider [phone] DR ALO ROMERO Admitting Unavailable HOY, DR PRAJAPATI Attending Unavailable HOY, DR PRAJAPATI Primary Care Unavailable HOY, DR PRAJAPATI Consulting Unavailable HOY, DR PRAJAPATI Admitting Unavailable HOY, DR PRAJAPATI Attending Unavailable HOY, DR PRAJAPATI Primary Care Unavailable HOY, DR PRAJAPATI Consulting Unavailable KADI, DR PRAJAPATI Primary Care Unavailable NILL, DR ZAVALETA Attending Unavailable NILL, DR ZAVALETA Admitting Unavailable NILL, DR ZAVALETA Consulting Unavailable LAURENY, DR PRAJAPATI Primary Care Unavailable HOY, DR PRAJAPATI Admitting Unavailable HOY, DR PRAJAPATI Attending Unavailable HOY, DR PRAJAPATI Consulting Unavailable KADI, DR PRAJAPATI Primary Care Unavailable HOY, DR PRAJAPATI Attending Unavailable HOY, DR PRAJAPATI Admitting Unavailable HOY, DR PRAJAPATI Consulting Unavailable WEST, DR DOREEN Hutton Consulting Unavailable KADI, DR PRAJAPATI Primary Care Unavailable AMOL MORGAN Attending Unavailable AMOL MORGAN Admitting Unavailable AMOL MORGAN Consulting Unavailable KADI, DR PRAJAPATI Admitting Unavailable HOY, DR PRAJAPATI Attending Unavailable HOY, DR PRAJAPATI Primary Care Unavailable NILL, DR ZAVALETA Consulting Unavailable NILL, DR ZAVALETA Attending Unavailable NILL, DR ZAVALETA Admitting Unavailable KADI, DR PRAJAPATI Primary Care Unavailable RICHARD DESHPANDE Consulting Unavailable KADI, DR PRAJAPATI Primary Care Unavailable AMOL MORGAN Attending Unavailable AMOL MORGAN Admitting Unavailable DR ALO ROMERO Admitting Unavailable DR ALO ROMERO Attending Unavailable DR ALO ROMERO Primary Care Unavailable DR ALO ROMERO Consulting Unavailable LORRI DELGADO Consulting Unavailable MIS, DOCTOR Attending Unavailable DR ALO ROMERO Primary Care Unavailable BECCA, DOCTOR Admitting Unavailable MISKaran, DOCTOR Consulting Unavailable DR ALO ROMERO Attending Unavailable DR ALO ROMERO Admitting Unavailable DR ALO ROMERO Primary Care Unavailable DR ALO ROMERO Consulting Unavailable Cony Caba Unavailable Allergies Allergy Classification Reported Allergen(s) Allergy Type Date of Onset Reaction(s) Facility (1 source) Aspirin Drug Allergy [facility] Repository (2 sources) Sulfamethoxazole / Trimethoprim Drug Allergy 03-20-[address] [facility] Repository (1 source) Sulfonamides (Antibiotic) Drug allergy (disorder) 11-24-[address] 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 DX] Onset: 01-06-2021 Episodic [...] by Marty Esteves on 04/18/2022 1143 Normal [facility] [employer]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:127 Normal [facility] PROF CHEM 8 (BAS METB)on Anion gap [Moles/Vol] 9.9 mmol/L Normal [facility] Comment on above: Performed By: #### B MP #### [facility] [address] [place] [address] Dr. Jonatan Mancilla Calcium [Mass/Vol] 8.8 mg/dL Normal 8.5-10.1 [facility] Comment on above: Performed By: #### B MP #### [facility] [address] [address] [address] Jonatan Mancilla Chloride [Moles/Vol] 105 mmol/L Normal 98-107 [facility] Comment on above: Performed By: #### B MP #### [facility] [address] [address] [address] Jonatan Mancilla CO2 [Moles/Vol] 28.4 mmol/L Normal 21.0-32.0 [facility] Comment on above: Performed By: #### B MP #### [facility] [address] [address] [address] Jonatan Mancilla Creatinine [Mass/Vol] 0.76 mg/dL Normal 0.55-1.02 [facility] Comment on above: Performed By: #### B MP #### [facility] [address] [address] [address] Jonatan Mancilla EGFR-AF CITIZEN [place] >60 Normal >=60 [facility] Comment on above: Performed By: #### B MP #### [facility] [address] [address] [address] Jonatan Mancilla EGFR-NON AF CITIZEN OF [place] >60 Normal >=60 [facility] Comment on above: Performed By: #### B MP #### [facility] [address] [address] [address] Jonatan Mancilla Glucose [Mass/Vol] 147 mg/dL Critically high 74-106 [facility] Comment on above: Performed By: #### B MP #### [facility] [address] [address] [address] Jonatan Mancilla Potassium [Moles/Vol] 4.3 mmol/L Normal 3.5-5.1 [facility] Comment on above: Performed By: #### B MP #### [facility] [address] [place] [address] Dr. Jonatan Mancilla Sodium [Moles/Vol] 139 mmol/L Normal 136-145 [facility] Comment on above: Performed By: #### B MP #### [facility] [address] [address] [address] Jonatan Mancilla Urea nitrogen [Mass/Vol] 17.0 mg/dL Normal 7.0-18.0 [facility] Comment on above: Performed By: #### B MP #### [facility] [address] [address] [address] Jonatan Mancilla Urea nitrogen/Creatinine [Mass ratio] 22.4 mg/mg Normal [facility] Comment on above: Performed By: #### B MP #### [facility] [address], [place] [address] Dr. Jonatan Mancilla GLUCOSE METERon 09-22-2021 Glucose [Mass/Vol] 136 mg/dL High 70-99 [facility] Comment on above: Result Comment: Fast ing GLUCOSE reference range has been updated per (ADA) [place] [employer]'s recommendation. 07/15/2018 Performed By: #### L [id number] #### Test performed at: [address] [address] OPERATIVE REPORTon OPERATIVE REPORT NAME: RADHA KNIGHT MR#: [id number] SURGEON: Carlos Garcia MD DATE OF SURGERY: 09/22/2021 OPERATIVE [...] in excellent condition. There were no complications. CARLOS GARCIA MD JFRaysa/[id number] E/S: Carlos Garcia MD 10/04/21 1121 Electronically Signed [facility] PT NAME: RADHA KNIGHT MR#: [id number] [id number] ACCT: [id number] : 70 OPERATIVE REPORT Normal [facility] MRI LSNESMITH WO CONon 08-12-19 MRI [facility] WO CON EXAM: MRI scan lumba r [...] by: Leidy DELGADO Date: 2021-08-11 16:12 Normal [facility] XR LSPINE MIN 4 VIEWSon 06-21 XR [...] by: DOREEN LIVE Date: 2021-07-17 09:40 Normal [facility] INSULINon 06-10-2021 Insulin 13.0 uIU/mL Normal 2.6-24.[address] [facility] Comment on above: Performed By: #### B MP #### [facility] [address] [place] [address] Dr. Jonatan Mancilla BNPon 06-09-2021 Natriuretic peptide B (Bld) [Mass/Vol] 86.0 pg/mL Normal <=900.[address] [facility] Comment on above: Performed By: #### B MP #### [facility] [address] [place] [address] Dr. Jonatan Mancilla CBC AUTO DIFFon 06-09-2021 BASO # 0.0 103/ul Normal 0.0-0.[address] [facility] Comment on above: Performed By: #### B MP #### [facility] [address] [place] [address] Dr. Jonatan Mancilla Basophils/100 WBC (Bld) 0.3 % Normal 0.2-2.[address] [facility] Comment on above: Performed By: #### B MP #### [facility] [address] [place] [address] Dr. Jonatan Mancilla EO # 0.3 103/ul Normal 0.0-0.[address] [facility] Comment on above: Performed By: #### B MP #### [facility] [address] [place] [address] Dr. Jonatan Mancilla Eosinophils/100 WBC (Bld) 3.7 % Normal 0.9-7.[address] [facility] Comment on above: Performed By: #### B MP #### [facility] [address] [place] [address] Dr. Jonatan Mancilla Erythrocyte distribution width (RBC) [Ratio] 15.4 % Critically high 11.0-15.[address] [facility] Comment on above: Performed By: #### B MP #### [facility] [address] [place] [address] Dr. Jonatan Mancilla Hematocrit (Bld) [Volume fraction] 44.9 % Normal 36.0-48.[address] [facility] Comment on above: Performed By: #### B MP #### [facility] [address] [place] [address] Dr. Jonatan Mancilla Hemoglobin (Bld) [Mass/Vol] 14.7 g/dL Normal 12.0-16.[address] [facility] Comment on above: Performed By: #### B MP #### [facility] [address] [place] [address] Dr. Jonatan Mancilla IG # 0.02 10e3/ul Normal 0.00-0.[address] [facility] Comment on above: Performed By: #### B MP #### [facility] [address] [place] [address] Dr. Jonatan Mancilla IG % 0.3 % Normal 0.0-0.[address] [facility] Comment on above: Performed By: #### B MP #### [facility] [address] [place] [address] Dr. Jonatan Mancilla LYMPH # 2.9 103/ul Normal 1.2-3.[address] [facility] Comment on above: Performed By: #### B MP #### [facility] [address] [place] [address] Dr. Jonatan Mancilla Lymphocytes/100 WBC (Bld) 43.3 % Normal 20.5-60.[address] [facility] Comment on above: Performed By: #### B MP #### [facility] [address] [place] [address] Dr. Jonatan Mancilla MANUAL DIFF REQ NO Normal [facility] Comment on above: Performed By: #### B MP #### [facility] [address] [place] [address] Dr. Jonatan Mancilla MCH (RBC) [Entitic mass] 29.7 pg Normal 26.7-34.[address] [facility] Comment on above: Performed By: #### B MP #### [facility] [address] [place] [address] Dr. Jonatan Mancilla MCHC (RBC) [Mass/Vol] 32.7 g/dL Normal 29.9-35.[address] [facility] Comment on above: Performed By: #### B MP #### [facility] [address] [place] [address] Dr. Jonatan Mancilla MCV (RBC) [Entitic vol] 90.7 fL Normal 81.0-99.0 [facility] Comment on above: Performed By: #### B MP #### [facility] [address] [place] [address] Dr. Jonatan Mancilla MONO # 0.4 103/ul Normal 0.3-0.8 [facility] Comment on above: Performed By: #### B MP #### [facility] [address] [place] [address] Dr. Jonatan Mancilla Monocytes/100 WBC (Bld) 5.5 % Normal 1.7-12.0 [facility] Comment on above: Performed By: #### B MP #### [facility] [address] [place] [address] Dr. Jonatan Mancilla NEUT # 3.2 103/ul Normal 1.4-6.5 [facility] Comment on above: Performed By: #### B MP #### [facility] [address] [place] [address] Dr. Jonatan Mancilla Neutrophils/100 WBC (Bld) 46.9 % Normal 43.0-75.[address] [facility] Comment on above: Performed By: #### B MP #### [facility] [address] [place] [address] Dr. Jonatan Mancilla Platelet mean volume (Bld) [Entitic vol] 9.2 fL Critically low 9.5-13.[address] [facility] Comment on above: Performed By: #### B MP #### [facility] [address] [place] [address] Dr. Jonatan Mancilla PLT 246 103/ul Normal 150-[address] [facility] Comment on above: Performed By: #### B MP #### [facility] [address] [place] [address] Dr. Jonatan Mancilla RBC 4.95 106/ul Normal 4.20-5.[address] [facility] Comment on above: Performed By: #### B MP #### [facility] [address] [place] [address] Dr. Jonatan Mancilla WBC 6.7 103/ul Normal 4.0-11.0 [facility] Comment on above: Performed By: #### B MP #### [facility] [address] [address] [address] Jonatan Mancilla FREE THYROXINE INDEX T7on FTI 3.77 Normal [facility] Comment on above: Performed By: #### C BC #### [facility] [address] [place] [address] Marcos Mcgregor T3U 34.0 % Normal 23.5-40.5 [facility] Comment on above: Performed By: #### C BC #### [facility] [address] [place] [address] Marcos Mcgregor T4 [Mass/Vol] 11.10 ug/dL Critically high 5.53-11.00 [facility] Comment on above: Performed By: #### C BC #### [facility] [address] [place] [address] Marcos Mcgregor GLYCOHEMOGLOBIN A1Con 2021 ADA RECOMMENDATION ADA THERAPEUTIC TARGET 6.0 - 7.0 ACTION SUGGESTED > 7.0 Normal [facility] Comment on above: Performed By: #### A 1C #### [facility] [address] [place] [address] Dr. Jonatan Mancilla Glucose [Mass/Vol] 143 mg/dL Normal [facility] Comment on above: Performed By: #### A 1C #### [facility] [address] [address] [address] Jonatan Mancilla HbA1c (Bld) [Mass fraction] 6.6 % Critically high <=6.0 [facility] Comment on above: Performed By: #### A 1C #### [facility] [address] [place] [address] Dr. Jonatan Mancilla IRONon 06-09-2021 Iron [Mass/Vol] 102.0 ug/dL Normal 37.0-170.0 [facility] Comment on above: Performed By: #### I KATHIA, VITMUNIRA, VITB12 #### [facility] [address] [place] [address] Dr. Jonatan Mancilla LIPID PROFILEon 06-09-2021 CHOL-HDL RATIO NORM SEE BELOW Normal [facility] Comment on above: Result Comment: 3.3 - 4.4 LOW RISK 4.4 - 7.1 AVERAGE RISK 7.1 - 11.0 MODERATE RISK >11.0 HIGH RISK Performed By: #### C BC #### [facility] [address], [place] [address] Marcos Meche Cholesterol [Mass/Vol] 183 mg/dL Normal <=200 [facility] Comment on above: Performed By: #### C BC #### [facility] [address], [place] [address] Marcos Meche Cholesterol in HDL [Mass/Vol] 54 mg/dL Normal [facility] Comment on above: Performed By: #### C BC #### [facility] [address], [place] [address] Marcos Meche Cholesterol in LDL [Mass/Vol] 107.6 mg/dL Normal [facility] Comment on above: Performed By: #### C BC #### [facility] [address], [place] [address] Marcos Meche Cholesterol.total/C holesterol in HDL [Mass ratio] 3.4 {ratio} Normal [facility] Comment on above: Performed By: #### C BC #### [facility] [address], [place] [address] Marcos Meche HDL NORMAL > or = 60 mg/dl - LO W CARDIOVASCULAR RISK <40 mg/dl - HIGH CARDIOVASCULAR RISK Normal [facility] Comment on above: Performed By: #### C BC #### [facility] [address], [place] [address] Marcos Meche LDL CALC NORMAL SEE BELOW Normal [facility] Comment on above: Result Comment: <100 mg/dl OPTIMAL 100 - 129 mg/dl NEAR OR ABOVE OPTIMAL 130 - 159 mg/dl BORDERLINE HIGH 160 - 189 mg/dl HIGH >190 mg/dl VERY HIGH Performed By: #### C BC #### [facility] [address], [place] [address] Marcos Meche Triglyceride [Mass/Vol] 107 mg/dL Normal <=150 [facility] Comment on above: Performed By: #### C BC #### [facility] [address] [address] Marcos Mcgregor VLDL CALC 21.4 mg/dL Normal [facility] Comment on above: Performed By: #### C BC #### [facility] [address] [address] Marcos Mcgregor PROF 14(COMP METB)on 022 Albumin [Mass/Vol] 3.7 g/dL Normal 3.5-5.0 [facility] Comment on above: Performed By: #### B MP #### [facility] [address] [place] [address] Dr. Jonatan Mancilla Albumin/Globulin [Mass ratio] 1.1 {ratio} Normal [facility] Comment on above: Performed By: #### B MP #### [facility] [address] [place] [address] Dr. Jonatan Mancilla ALP [Catalytic activity/Vol] 66 U/L Normal 38-126 [facility] Comment on above: Performed By: #### B MP #### [facility] [address] [place] [address] Dr. Jonatan Mancilla ALT [Catalytic activity/Vol] 62 U/L Critically high 9-52 [facility] Comment on above: Performed By: #### B MP #### [facility] [address] [place] [address] Dr. Jonatan Mancilla Anion gap [Moles/Vol] 12.3 mmol/L Normal [facility] Comment on above: Performed By: #### B MP #### [facility] [address] [place] [address] Dr. Jonatan Mancilla AST [Catalytic activity/Vol] 35 U/L Normal 14-36 [facility] Comment on above: Performed By: #### B MP #### [facility] [address] [place] [address] Dr. Jonatan Mancilla Bilirubin [Mass/Vol] 0.5 mg/dL Normal 0.2-1.3 [facility] Comment on above: Performed By: #### B MP #### [facility] [address] [address] [address] Jonatan Mancilla Calcium [Mass/Vol] 9.2 mg/dL Normal 8.4-10.2 [facility] Comment on above: Performed By: #### B MP #### [facility] [address] [address] [address] Jonatan Mancilla Chloride [Moles/Vol] 102 mmol/L Normal 98-[address] [facility] Comment on above: Performed By: #### B MP #### [facility] [address] [address] [address] Jonatan Mancilla CO2 [Moles/Vol] 29.3 mmol/L Normal 22.0-30.0 [facility] Comment on above: Performed By: #### B MP #### [facility] [address] [place] [address] Dr. Jonatan Mancilla Creatinine [Mass/Vol] 0.66 mg/dL Normal 0.52-1.[address] [facility] Comment on above: Performed By: #### B MP #### [facility] [address] [address] [address] Jonatan Mancilla EGFR-AF [place]IZ[place] >60 Normal >=60 [facility] Comment on above: Performed By: #### B MP #### [facility] [address] [place] [address] Dr. Jonatan Mancilla EGFR-NON AF CITIZEN OF [place] >60 Normal >=[address] [facility] Comment on above: Performed By: #### B MP #### [facility] [address] [address] [address] Jonatan Mancilla Globulin (S) [Mass/Vol] 3.5 g/dL Normal [facility] Comment on above: Performed By: #### B MP #### [facility] [address] [address] [address] Jonatan Mancilla Glucose [Mass/Vol] 99 mg/dL Normal 74-106 [facility] Comment on above: Performed By: #### B MP #### [facility] [address] [address] [address] Jonatan Mancilla Potassium [Moles/Vol] 4.6 mmol/L Normal 3.4-5.0 [facility] Comment on above: Performed By: #### B MP #### [facility] [address] [place] [address] Dr. Jonatan Mancilla Protein [Mass/Vol] 7.2 g/dL Normal 6.1-8.2 [facility] Comment on above: Performed By: #### B MP #### [facility] [address] [place] [address] Dr. Jonatan Mancilla Sodium [Moles/Vol] 139 mmol/L Normal 137-145 [facility] Comment on above: Performed By: #### B MP #### [facility] [address] [place] [address] Dr. Jonatan Mancilla Urea nitrogen [Mass/Vol] 17.0 mg/dL Normal 7.0-17.0 [facility] Comment on above: Performed By: #### B MP #### [facility] [address] [place] [address] Dr. Jonatan Mancilla Urea nitrogen/Creatinine [Mass ratio] 25.8 mg/mg Normal [facility] Comment on above: Performed By: #### B MP #### [facility] [address] [place] [address] Dr. Jonatan Mancilla TSHon 06-09-2021 TSH 1.030 uIU/mL Normal 0.470-4.[address] [facility] Comment on above: Performed By: #### C BC #### [facility] [address] [place] [address] Marcos Mcgregor TSH RANGE SEE BELOW Normal [facility] Comment on above: Result Comment: <0.3 4 UIU/ml HYPERTHYROID 0.34-5.60 UIU/ml EUTHYROID >5.60 UIU/ml HYPOTHYROID Performed By: #### C BC #### [facility] [address] [place] [address] Marcos Mcgregor VITAMIN B12on 06-09-2021 Cobalamin (Vitamin B12) [Mass/Vol] 590.0 pg/mL Normal 239.0-931.0 [facility] Comment on above: Performed By: #### I KATHIA, VITAD, VITB12 #### [facility] [address] [address] [address] Jonatan Mancilla VITAMIN D 25 OHon 06-09-2021 VIT D 25-OH 29.2 ng/mL Normal [facility] Comment on above: Performed By: #### I KATHIA, VITAD, VITB12 #### [facility] [address] [place] [address] Dr. Jonatan Mancilla VIT D RANGES SEE BELOW Normal [facility] Comment on above: Result Comment: <20 ng/mL Vit D deficient 20 - <30 ng/mL Vit D insufficient 30 - 100 ng/mL Vit D sufficient >100 ng/mL Potential Toxicity Performed By: #### I KATHIA, VITAD, VITB12 #### [facility] [address] [place] [address] Dr. Jonatan Mancilla Covid-19 PCR ([facility])on 04-22 SARS-CoV-2 (COVID-19) RNA FANNY+probe Ql (Unsp spec) Not detected Normal NOT DETECTED [facility] Comment on above: Result Comment: This test is not yet approved or cleared by the [place] FDA. When there are no FDA-approved or cleared tests available, and other criteria are met, FDA can make tests available under an emergency access mechanism called an Emergency Use Authorization (EUA). The EUA for this test is supported by the Manager Pulmonary of Health and Human Service's (HHS's) declaration [...] SARS-CoV-2. Performed By: #### C BC #### [facility] [address] [place], [place] [id number] Marcos Mcgregor Outside Colonoscopyon 2020 Outside Colonoscopy [id number]:127 Normal [facility] POINT OF CARE GLUCOSEon 12-21 Glucose [Mass/Vol] 123 mg/dL Critically high 74-106 [facility] Comment on above: Performed By: #### P OCGLUC #### [facility] [address] [address] [address] Jonatan Mancilla Lab Reportson 01-02-2021 Lab Reports [id number] .[id number]:127 Normal [facility] Covid-19 PCR (CVDTBH)on 12-21 SARS-CoV-2 (COVID-19) RNA FANNY+probe Ql (Unsp spec) Not detected Normal NOT DETECTED [facility] Comment on above: Result Comment: This test is not yet approved or cleared by the [place] FDA. When there are no FDA-approved or cleared tests available, and other criteria are met, FDA can make tests available under an emergency access mechanism called an Emergency Use Authorization (EUA). The EUA for this test is supported by the [place] of Health and Human Service's (HHS's) declaration [...] SARS-CoV-2. Performed By: #### B MP #### [facility] [address] [place] [address] Dr. Jonatan Mancilla [facility] December 22, 2020 Alo Romero, [address] [place] [address] [place] [address] Re: RADHA KNIGHT Date of : 1970 Thank you for your referral of Radha Knight who was seen on consultation on December 16, 2020, for screening colonoscopy. I have enclosed my consultation notes for your review. I will be happy to follow Radha. Sincerely, Meghann Dias MD General Surgery [facility] Consent for Procedure/Surger yon 12-19-2020 Consent for Procedure/Surgery [id number] Normal [facility] Ambulatory Clinical Summaryo n 12-16-2020 Ambulatory Clinical Summary {[id number]}CD:[id number] Normal [facility] Patient Educationon 12-17-19 21 Patient Education Colonoscopy [...] ? Medicines taken, including vitamins, herbs, eyedrops, jrnd-zfd-lfwmaue medicines, and creams. ? Use of steroids [...] medicines have worn off. ? Only take hfsw-ciw-axdfnry or prescription medicines for pain, discomfort, or [...] Document Reviewed: 11/18/2008 ExitCare? Patient Information ?2014 [employer]. Radiology Colonoscopy, Adult, Care After This sheet [...] slower pace than normal. ? Eat soft, ucje-ja-dcerfp foods. ? Take ndjf-ejn-nwvnkcx or prescription medicines only as told by [...] your h (more content not included)... Normal [facility] HEPATITIS PANEL, ACUTEon HBsAg Screen Negative Normal Negative [facility] Comment on above: Performed By: #### H EPACUT #### [facility] [address] [place] Hep A Ab, IgM Negative Normal Negative [facility] Comment on above: Performed By: #### H EPACUT #### [facility] [address] [place], [place] [address] Marcos [place] Hep B Core Ab, IgM Negative Normal Negative [facility] Comment on above: Performed By: #### H EPACUT #### [facility] [address] [place], [place] [address] [facility] Hep C Virus Ab <0.1 Normal 0.0-0.9 [facility] Comment on above: Result Comment: Nega tive: < 0.8 Indeterminate: 0.8 - 0.9 Positive: > 0.9 . The CDC recommends that a positive HCV antibody result be followed up with a HCV Nucleic Acid Amplification test (280086). Performed By: #### H EPACUT #### [facility] [address] [place], [place] [id number] Marcosjeremy Rainen BNPon 11-30-2020 Natriuretic peptide B (Bld) [Mass/Vol] 65.0 pg/mL Normal <=900.[address] [facility] Comment on above: Performed By: #### C BC #### [facility] [address] [place], [place] [id number] [place] CBC AUTO DIFFon 11-30-2020 BASO # 0.0 103/ul Normal 0.0-0.[address] [facility] Comment on above: Performed By: #### C BC #### [facility] [address] [place] [address] Mar[place] Basophils/100 WBC (Bld) 0.2 % Normal 0.2-2.[address] [facility] Comment on above: Performed By: #### C BC #### [facility] [address] [place] [address] [place] EO # 0.3 103/ul Normal 0.0-0.[address] [facility] Comment on above: Performed By: #### C BC #### [facility] [address] [place] [address] Mar[place] Eosinophils/100 WBC (Bld) 2.8 % Normal 0.9-7.0 [facility] Comment on above: Performed By: #### C BC #### [facility] [address] [place], [place] [id number] [place] Erythrocyte distribution width (RBC) [Ratio] 15.3 % Critically high 11.0-15.[address] [facility] Comment on above: Performed By: #### C BC #### [facility] [address] [place] [address] Mar[place] Hematocrit (Bld) [Volume fraction] 41.8 % Normal 36.0-48.[address] [facility] Comment on above: Performed By: #### C BC #### [facility] [address] [place], [place] [id number] [place] Hemoglobin (Bld) [Mass/Vol] 13.8 g/dL Normal 12.0-16.[address] [facility] Comment on above: Performed By: #### C BC #### [facility] [address] [place] [address] [place] IG # 0.01 10e3/ul Normal 0.00-0.03 [facility] Comment on above: Performed By: #### C BC #### [facility] [address] [place]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
[2024-03-29 13:06] LABS: Age Gdln ACOG Testing Note (.); HPV Aptima Negative (Negative); IGP, Aptima HPV, rfx 16/18,45 Note (.)
== END 2024-03-24 12:34 | disposition home or self-care (01) ==
LOC: LAB 12:33
PROVIDERS: PCP Family Medicine; Visit Provider Nurse Practitioner Family
DX: Z01.419 Encounter for gynecological examination (general) (routine) without abnormal findings (principal)
CPT/HCPCS: 87624; 88175

== ENCOUNTER 2024-05-19 09:27 | Outpatient (OUT) | payer OTHER, SELFPAY ==
--- NOTE | 2024-05-19 09:34 | XR_ITS ---
The [address] [address] Patient Name: JUAN ARMSTRONG MRN: [id number] date: 1970 Sex: F Assigned Patient Location: [facility] Current Patient Location: Accession/Order Number: [id number] Exam Date: 05/19/2024 09:35 Report Date: 05/20/2024 08:52 At the request of: ALO WALLIS Procedure: XR cervical spine 2-3V EXAMINATION: XR cervical spine 2-3V HISTORY: Cervical Radiculopathy ; chronic bilateral hand tingling and numbness COMPARISON: No relevant comparison available. FINDINGS: BONES: Mild degenerative facet arthropathy of lower cervical spine. Uncovertebral joint spurring seen on the frontal projection likely encroaching on the neural foramen. Large bridging osteophytes along the anterior margins of the vertebral bodies. DISC SPACES: Mild narrowing C6-7. PARASPINOUS: Negative. No paraspinous abnormality is seen. OTHER: Negative. XR/XR cervical spine 2-3V IMPRESSION: 1. Mild degenerative changes of the cervical spine. Consider MRI if symptoms persist. Electronically authenticated by: BENITO PATEL Date: 05/20/2024 08:52
== END 2024-05-19 09:28 | disposition home or self-care (01) ==
LOC: RAD 09:29
PROVIDERS: PCP Family Medicine; Visit Provider Family Medicine
DX: M54.12 Radiculopathy, cervical region (principal); M50.30 Other cervical disc degeneration, unspecified cervical region
CPT/HCPCS: 72040

== ENCOUNTER 2024-05-26 08:22 | Outpatient (RCR) | payer OTHER, SELFPAY | END 2024-06-20 09:17 | disposition home or self-care (01) | LOC: PT 08:22 | PROVIDERS: PCP Family Medicine; Visit Provider Family Medicine | DX: M54.12 Radiculopathy, cervical region (principal) | CPT/HCPCS: 97012; 97110; 97140; 97161 ==

== ENCOUNTER 2024-05-27 13:25 | Outpatient (OUT) | payer OTHER, SELFPAY ==
--- NOTE | 2024-05-27 13:29 | MR_ITS ---
The [place] [id number] Patient Name: JUAN ARMSTRONG MRN: [id number] date: 1970 Sex: F Assigned Patient Location: MRI Current Patient Location: Accession/Order Number: [id number] Exam Date: 05/27/2024 13:35 Report Date: 05/28/2024 08:53 At the request of: ALO WALLIS Procedure: MR cervical spine wo con MR cervical spine wo con, 05/27/2024 1:35 PM EST INDICATION: Cervical Radiculopathy COMPARISON: X-ray of cervical spine dated 05/11/2024 TECHNIQUE: Multiplanar, multisequence MRI images of cervical spine were obtained without contrast. FINDINGS: There is normal physiologic cervical lordosis. The vertebral heights are relatively preserved. Anterior flowing osteophytes suggesting of diffuse idiopathic skeletal hyperostosis. The cervicomedullary junction is unremarkable. No definite signal abnormality within the spinal cord is noted. Grade 1 endplate changes at the level of T3-T4 are noted. There are mild disc osteophyte complex associated with uncovertebral joint arthrosis from C3 to T1 contributing to neuroforaminal and canal stenosis. At the level of C2-C3, there is no neuroforaminal narrowing or canal stenosis. At the level of C3-C4, there is no neuroforaminal narrowing and no canal stenosis. At the level of C4-C5, there is mild bilateral neuroforaminal narrowing and no canal stenosis. At the level of C5-C6, there is moderate bilateral neuroforaminal narrowing and mild canal stenosis. At the level of C6-C7, there is superimposed central protrusion with mild to moderate bilateral neuroforaminal narrowing and moderate central canal stenosis. Level of C7-T1 is unremarkable. No definite muscular or ligamentous injury is noted. MR/MR cervical spine wo con IMPRESSION: Mild degenerative changes of the cervical spine in particular at C5-C6 and C6-C7. Electronically authenticated by: BAYRON HURT Date: 05/28/2024 08:53
--- OUTSIDE RECORDS SUMMARY | 2024-05-27 13:36 | XMS_ITS | CCD ---
Author Organization [facility] Care Team Providers Care Solar Sales Rep Name Role Phone Alo Romero Primary Care Provider TRAUMA SURGEONS [facility] [place] Consulting Radhika vailable EAN DELGADO Attending Unavailab le ALO ROMERO Primary Care Unavailable EAN DELGADO Admitting Unavailab EAN Gunderson Referring Unavailab ALO Alexis Primary Care Unavailable Alo Romero Primary Care Provider DR ALO ROMERO Admitting Unavailable HOY, DR [...] DR PRAJAPATI Primary Care Unavailable NILL, DR ZAVAELTA Consulting Unavailable NILL, DR ZAVALETA Attending Unavailable [...] Facility (1 source) Aspirin Drug Allergy [facility] Repository (2 sources) Sulfamethoxazole / Trimethoprim Drug Allergy 03-20-20 16 [facility] Repository (1 source) Sulfonamides (Antibiotic) Drug allergy (disorder) 11-24-19 21 [facility] Repository (1 source) Aspirin Drug Allergy shortness of breath [facility] [employer] Other (1 source) Sulf-10 Drug allergy Unknown [employer] 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:127 Normal [facility] PROF CHEM 8 (BAS METB)on Anion gap [Moles/Vol] 9.9 mmol/L Normal [facility] Comment on above: Performed By: #### B MP #### [facility] [address] [place] [address] Dr. Jonatan Mancilla Calcium [Mass/Vol] 8.8 mg/dL Normal 8.5-10.1 [facility] Comment on above: Performed By: #### B MP #### [facility] [address] [address] [address] Jonatan Mancilla Chloride [Moles/Vol] 105 mmol/L Normal 98-107 [facility] Comment on above: Performed By: #### B MP #### [facility] [address] [address] [address] Jonatan Mancilla CO2 [Moles/Vol] 28.4 mmol/L Normal 21.0-32.0 [facility] Comment on above: Performed By: #### B MP #### [facility] [address] [address] [address] Jonatan Mancilla Creatinine [Mass/Vol] 0.76 mg/dL Normal 0.55-1.02 [facility] Comment on above: Performed By: #### B MP #### [facility] [address] [address] [address] Jonatan Mancilla EGFR-AF AZERBAIJANI >60 Normal >=60 [facility] Comment on above: Performed By: #### B MP #### [facility] [address] [address] [address] Jonatan Mancilla EGFR-NON AF AZERBAIJANI >60 Normal >=60 [facility] Comment on above: Performed By: #### B MP #### [facility] [address] [address] [address] Jonatan Mancilla Glucose [Mass/Vol] 147 mg/dL Critically high 74-106 [facility] Comment on above: Performed By: #### B MP #### [facility] [address] [address] [address] Jonatan Mancilla Potassium [Moles/Vol] 4.3 mmol/L Normal 3.5-5.1 [facility] Comment on above: Performed By: #### B MP #### [facility] [address] [place] [address] Dr. Jonatan Mancilla Sodium [Moles/Vol] 139 mmol/L Normal 136-145 [facility] Comment on above: Performed By: #### B MP #### [facility] [address] [address] [address] Jonatan Mancilla Urea nitrogen [Mass/Vol] 17.0 mg/dL Normal 7.0-18.0 [facility] Comment on above: Performed By: #### B MP #### [facility] [address] [address] [address] Jonatan Mancilla Urea nitrogen/Creatinine [Mass ratio] 22.4 mg/mg Normal [facility] Comment on above: Performed By: #### B MP #### [facility] [address] [place], [place] [address] Dr. Jonatan Mancilla GLUCOSE METERon 09-22-2021 Glucose [Mass/Vol] 136 mg/dL High 70-99 [facility] Comment on above: Result Comment: Fast ing GLUCOSE reference range has been updated per (ADA) [place] Diabetes Association's recommendation. 07/15/2018 Performed By: #### L [id number] #### Test performed at: [address] [address] OPERATIVE REPORTon OPERATIVE REPORT NAME: RADHA KNIGHT MR#: [id number] SURGEON: Carlos Garcia MD DATE OF SURGERY: [...] There were no complications. CARLOS GARCIA MD JFRaysa/[id number] E/S: Carlos Garcia MD 10/04/21 1121 Electronically Signed [facility] PT NAME: RADHA KNIGHT MR#: [id number] [address] [id number] ACCT: [id number] : 70 OPERATIVE REPORT Normal [facility] MRI LSMAGNOLIA WO CONon 08-12-19 MRI [facility] WO CON EXAM: MRI scan [...] by: Leidy DELGADO Date: 2021-08-11 16:12 Normal [facility] XR LSPINE MIN 4 VIEWSon 06-21 XR [...] by: DOREEN LIVE Date: 2021-07-17 09:40 Normal [facility] INSULINon 06-10-2021 Insulin 13.0 uIU/mL Normal 2.6-24.9 [facility] Comment on above: Performed By: #### B MP #### [facility] [address] [place] [address] Dr. Jonatan Mancilla BNPon 06-09-2021 Natriuretic peptide B (Bld) [Mass/Vol] 86.0 pg/mL Normal <=900.0 [facility] Comment on above: Performed By: #### B MP #### [facility] [address] [place] [address] Dr. Jonatan Mancilla CBC AUTO DIFFon 06-09-2021 BASO # 0.0 103/ul Normal 0.0-0.1 [facility] Comment on above: Performed By: #### B MP #### [facility] [address] [place] [address] Dr. Jonatan Mancilla Basophils/100 WBC (Bld) 0.3 % Normal 0.2-2.0 [facility] Comment on above: Performed By: #### B MP #### [facility] [address] [place] [address] Dr. Jonatan Mancilla EO # 0.3 103/ul Normal 0.0-0.7 [facility] Comment on above: Performed By: #### B MP #### [facility] [address] [place] [address] Dr. Jonatan Mancilla Eosinophils/100 WBC (Bld) 3.7 % Normal 0.9-7.0 [facility] Comment on above: Performed By: #### B MP #### [facility] [address] [place] [address] Dr. Jonatan Mancilla Erythrocyte distribution width (RBC) [Ratio] 15.4 % Critically high 11.0-15.0 [facility] Comment on above: Performed By: #### B MP #### [facility] [address] [place] [address] Dr. Jonatan Mancilla Hematocrit (Bld) [Volume fraction] 44.9 % Normal 36.0-48.0 [facility] Comment on above: Performed By: #### B MP #### [facility] [address] [place] [address] Dr. Jonatan Mancilla Hemoglobin (Bld) [Mass/Vol] 14.7 g/dL Normal 12.0-16.0 [facility] Comment on above: Performed By: #### B MP #### [facility] [address] [place] [address] Dr. Jonatan Mancilla IG # 0.02 10e3/ul Normal 0.00-0.03 [facility] Comment on above: Performed By: #### B MP #### [facility] [address] [place] [address] Dr. Jonatan Mancilla IG % 0.3 % Normal 0.0-0.5 [facility] Comment on above: Performed By: #### B MP #### [facility] [address] [place] [address] Dr. Jonatan Mancilla LYMPH # 2.9 103/ul Normal 1.2-3.8 [facility] Comment on above: Performed By: #### B MP #### [facility] [address] [place] [address] Dr. Jonatan Mancilla Lymphocytes/100 WBC (Bld) 43.3 % Normal 20.5-60.0 [facility] Comment on above: Performed By: #### B MP #### [facility] [address] [place] [address] Dr. Jonatan Mancilla MANUAL DIFF REQ NO Normal [facility] Comment on above: Performed By: #### B MP #### [facility] [address] [place] [address] Dr. Jonatan Mancilla MCH (RBC) [Entitic mass] 29.7 pg Normal 26.7-34.0 [facility] Comment on above: Performed By: #### B MP #### [facility] [address] [place] [address] Dr. Jonatan Mancilla MCHC (RBC) [Mass/Vol] 32.7 g/dL Normal 29.9-35.2 [facility] Comment on above: Performed By: #### B MP #### [facility] [address] [place] [address] Dr. Jonatan Mancilla MCV (RBC) [Entitic vol] 90.7 fL Normal 81.0-99.0 [facility] Comment on above: Performed By: #### B MP #### [facility] [address] [place] [address] Dr. Jonatan Mancilla MONO # 0.4 103/ul Normal 0.3-0.8 [facility] Comment on above: Performed By: #### B MP #### [facility] [address] [place] [address] Dr. Jonatan Mancilla Monocytes/100 WBC (Bld) 5.5 % Normal 1.7-12.0 [facility] Comment on above: Performed By: #### B MP #### [facility] [address] [place] [address] Dr. Jonatan Mancilla NEUT # 3.2 103/ul Normal 1.4-6.5 [facility] Comment on above: Performed By: #### B MP #### [facility] [address] [place] [address] Dr. Jonatan Mancilla Neutrophils/100 WBC (Bld) 46.9 % Normal 43.0-75.0 [facility] Comment on above: Performed By: #### B MP #### [facility] [address] [place] [address] Dr. Jonatan Mancilla Platelet mean volume (Bld) [Entitic vol] 9.2 fL Critically low 9.5-13.5 [facility] Comment on above: Performed By: #### B MP #### [facility] [address] [place] [address] Dr. Jonatan Mancilla PLT 246 103/ul Normal 150-450 [facility] Comment on above: Performed By: #### B MP #### [facility] [address] [place] [address] Dr. Jonatan Mancilla RBC 4.95 106/ul Normal 4.20-5.40 [facility] Comment on above: Performed By: #### B MP #### [facility] [address] [place] [address] Dr. Jonatan Mancilla WBC 6.7 103/ul Normal 4.0-11.0 [facility] Comment on above: Performed By: #### B MP #### [facility] [address] [address] [address] Jonatan Mancilla FREE THYROXINE INDEX T7on FTI 3.77 Normal [facility] Comment on above: Performed By: #### C BC #### [facility] [address] [place] [address] Marcos Mcgregor T3U 34.0 % Normal 23.5-40.5 [facility] Comment on above: Performed By: #### C BC #### [facility] [address] [place] [address] Marcos Mcgregor T4 [Mass/Vol] 11.10 ug/dL Critically high 5.53-11.00 [facility] Comment on above: Performed By: #### C BC #### [facility] [address] [place] [address] Marcos Mcgregor GLYCOHEMOGLOBIN A1Con 2021 ADA RECOMMENDATION ADA THERAPEUTIC TARGET 6.0 - 7.0 ACTION SUGGESTED > 7.0 Normal [facility] Comment on above: Performed By: #### A 1C #### [facility] [address] [place] [address] Dr. Jonatan Mancilla Glucose [Mass/Vol] 143 mg/dL Normal [facility] Comment on above: Performed By: #### A 1C #### [facility] [address] [address] [address] Jonatan Mancilla HbA1c (Bld) [Mass fraction] 6.6 % Critically high <=6.0 [facility] Comment on above: Performed By: #### A 1C #### [facility] [address] [place] [address] Dr. Jonatan Mancilla IRONon 06-09-2021 Iron [Mass/Vol] 102.0 ug/dL Normal 37.0-170.0 [facility] Comment on above: Performed By: #### I KATHIA, VITMUNIRA, VITB12 #### [facility] [address] [place] [address] Dr. Jonatan Mancilla LIPID PROFILEon 06-09-2021 CHOL-HDL RATIO NORM SEE BELOW Normal [facility] Comment on above: Result Comment: 3.3 - 4.4 LOW RISK 4.4 - 7.1 AVERAGE RISK 7.1 - 11.0 MODERATE RISK >11.0 HIGH RISK Performed By: #### C BC #### [facility] [address] [place], [place] [address] Marcos Meche Cholesterol [Mass/Vol] 183 mg/dL Normal <=200 [facility] Comment on above: Performed By: #### C BC #### [facility] [address] [place], [place] [address] Marcos Meche Cholesterol in HDL [Mass/Vol] 54 mg/dL Normal [facility] Comment on above: Performed By: #### C BC #### [facility] [address] [place], [place] [address] Marcos Meche Cholesterol in LDL [Mass/Vol] 107.6 mg/dL Normal [facility] Comment on above: Performed By: #### C BC #### [facility] [address] [place], [place] [address] Marcos Meche Cholesterol.total/C holesterol in HDL [Mass ratio] 3.4 {ratio} Normal [facility] Comment on above: Performed By: #### C BC #### [facility] [address] [place], [place] [address] Marcos Meche HDL NORMAL > or = 60 mg/dl - LO W CARDIOVASCULAR RISK <40 mg/dl - HIGH CARDIOVASCULAR RISK Normal [facility] Comment on above: Performed By: #### C BC #### [facility] [address] [place], [place] [address] Marcos Meche LDL CALC NORMAL SEE BELOW Normal [facility] Comment on above: Result Comment: <100 mg/dl OPTIMAL 100 - 129 mg/dl NEAR OR ABOVE OPTIMAL 130 - 159 mg/dl BORDERLINE HIGH 160 - 189 mg/dl HIGH >190 mg/dl VERY HIGH Performed By: #### C BC #### [facility] [address] [place], [place] [address] Marcos Meche Triglyceride [Mass/Vol] 107 mg/dL Normal <=150 [facility] Comment on above: Performed By: #### C BC #### [facility] [address] [address] Marcos Mcgregor VLDL CALC 21.4 mg/dL Normal [facility] Comment on above: Performed By: #### C BC #### [facility] [address] [address] Marcos Mcgregor PROF 14(COMP METB)on 022 Albumin [Mass/Vol] 3.7 g/dL Normal 3.5-5.0 [facility] Comment on above: Performed By: #### B MP #### [facility] [address] [place] [address] Dr. Jonatan Mancilla Albumin/Globulin [Mass ratio] 1.1 {ratio} Normal [facility] Comment on above: Performed By: #### B MP #### [facility] [address] [place] [address] Dr. Jonatan Mancilla ALP [Catalytic activity/Vol] 66 U/L Normal 38-126 [facility] Comment on above: Performed By: #### B MP #### [facility] [address] [place] [address] Dr. Jonatan Mancilla ALT [Catalytic activity/Vol] 62 U/L Critically high 9-52 [facility] Comment on above: Performed By: #### B MP #### [facility] [address] [place] [address] Dr. Jonatan Mancilla Anion gap [Moles/Vol] 12.3 mmol/L Normal [facility] Comment on above: Performed By: #### B MP #### [facility] [address] [place] [address] Dr. Jonatan Mancilla AST [Catalytic activity/Vol] 35 U/L Normal 14-36 [facility] Comment on above: Performed By: #### B MP #### [facility] [address] [place] [address] Dr. Jonatan Mancilla Bilirubin [Mass/Vol] 0.5 mg/dL Normal 0.2-1.3 [facility] Comment on above: Performed By: #### B MP #### [facility] [address] [address] [address] Jonatan Mancilla Calcium [Mass/Vol] 9.2 mg/dL Normal 8.4-10.2 [facility] Comment on above: Performed By: #### B MP #### [facility] [address] [address] [address] Jonatan Mancilla Chloride [Moles/Vol] 102 mmol/L Normal 98-107 [facility] Comment on above: Performed By: #### B MP #### [facility] [address] [address] [address] Jonatan Mancilla CO2 [Moles/Vol] 29.3 mmol/L Normal 22.0-30.0 [facility] Comment on above: Performed By: #### B MP #### [facility] [address] [place] [address] Dr. Jonatan Mancilla Creatinine [Mass/Vol] 0.66 mg/dL Normal 0.52-1.04 [facility] Comment on above: Performed By: #### B MP #### [facility] [address] [address] [address] Jonatan Mancilla EGFR-AF AZERBAIJANI >60 Normal >=60 [facility] Comment on above: Performed By: #### B MP #### [facility] [address] [place] [address] Dr. Jonatan Mancilla EGFR-NON AF AZERBAIJANI >60 Normal >=60 [facility] Comment on above: Performed By: #### B MP #### [facility] [address] [address] [address] Jonatan Mancilla Globulin (S) [Mass/Vol] 3.5 g/dL Normal [facility] Comment on above: Performed By: #### B MP #### [facility] [address] [address] [address] Jonatan Mancilla Glucose [Mass/Vol] 99 mg/dL Normal 74-106 [facility] Comment on above: Performed By: #### B MP #### [facility] [address] [address] [address] Jonatan Mancilla Potassium [Moles/Vol] 4.6 mmol/L Normal 3.4-5.0 [facility] Comment on above: Performed By: #### B MP #### [facility] [address] [place] [address] Dr. Jonatan Mancilla Protein [Mass/Vol] 7.2 g/dL Normal 6.1-8.2 [facility] Comment on above: Performed By: #### B MP #### [facility] [address] [place] [address] Dr. Jonatan Mancilla Sodium [Moles/Vol] 139 mmol/L Normal 137-145 [facility] Comment on above: Performed By: #### B MP #### [facility] [address] [place] [address] Dr. Jonatan Mancilla Urea nitrogen [Mass/Vol] 17.0 mg/dL Normal 7.0-17.0 [facility] Comment on above: Performed By: #### B MP #### [facility] [address] [place] [address] Dr. Jonatan Mancilla Urea nitrogen/Creatinine [Mass ratio] 25.8 mg/mg Normal [facility] Comment on above: Performed By: #### B MP #### [facility] [address] [place] [address] Dr. Jonatan Mancilla TSHon 06-09-2021 TSH 1.030 uIU/mL Normal 0.470-4.680 [facility] Comment on above: Performed By: #### C BC #### [facility] [address] [place] [address] Marcos Mcgregor TSH RANGE SEE BELOW Normal [facility] Comment on above: Result Comment: <0.3 4 UIU/ml HYPERTHYROID 0.34-5.60 UIU/ml EUTHYROID >5.60 UIU/ml HYPOTHYROID Performed By: #### C BC #### [facility] [address] [place] [address] Marcos Mcgregor VITAMIN B12on 06-09-2021 Cobalamin (Vitamin B12) [Mass/Vol] 590.0 pg/mL Normal 239.0-931.0 [facility] Comment on above: Performed By: #### I KATHIA, VITAD, VITB12 #### [facility] [address] [address] [address] Jonatan Mancilla VITAMIN D 25 OHon 06-09-2021 VIT D 25-OH 29.2 ng/mL Normal [facility] Comment on above: Performed By: #### I KATHIA, VITAD, VITB12 #### [facility] [address] [place] [address] Dr. Jonatan Mancilla VIT D RANGES SEE BELOW Normal [facility] Comment on above: Result Comment: <20 ng/mL Vit D deficient 20 - <30 ng/mL Vit D insufficient 30 - 100 ng/mL Vit D sufficient >100 ng/mL Potential Toxicity Performed By: #### I KATHIA, VITAD, VITB12 #### [facility] [address] [place] [address] Dr. Jonatan Mancilla Covid-19 PCR ([facility])on 04-22 SARS-CoV-2 (COVID-19) RNA FANNY+probe Ql (Unsp spec) Not detected Normal NOT DETECTED [facility] Comment on above: Result Comment: This test is not yet approved or cleared by the [place] FDA. When there are no FDA-approved or cleared tests available, and other criteria are met, FDA can make tests available under an emergency access mechanism called an Emergency Use Authorization (EUA). The EUA for this test is supported by the [place] of Health and Human Service's (HHS's) declaration [...] SARS-CoV-2. Performed By: #### C BC #### [facility] [address] [place], [place] [address] Marcos Mcgregor Outside Colonoscopyon 2020 Outside Colonoscopy [id number] .[id number]:127 Normal [facility] POINT OF CARE GLUCOSEon 12-21 Glucose [Mass/Vol] 123 mg/dL Critically high 74-106 [facility] Comment on above: Performed By: #### P OCGLUC #### [facility] [address] [address] [address] Jonatan Mancilla Lab Reportson 01-02-2021 Lab Reports [id number] .[id number]:127 Normal [facility] Covid-19 PCR ([facility])on 12-21 SARS-CoV-2 (COVID-19) RNA FANNY+probe Ql (Unsp spec) Not detected Normal NOT DETECTED [facility] Comment on above: Result Comment: This test is not yet approved or cleared by the [place] FDA. When there are no FDA-approved or cleared tests available, and other criteria are met, FDA can make tests available under an emergency access mechanism called an Emergency Use Authorization (EUA). The EUA for this test is supported by the [place] of Health and Human Service's (HHS's) declaration [...] SARS-CoV-2. Performed By: #### B MP #### [facility] [address] [place] [address] Dr. Jonatan Mancilla [facility] December 22, 2020 Alo Romero, [address] [facility] [address] [place] [address] Re: RADHA KNIGHT Date of : 1970 Thank you for your referral of Radha Knight who was seen on consultation on December 16, 2020, for screening colonoscopy. I have enclosed my consultation notes for your review. I will be happy to follow Radha. Sincerely, Meghann Dias MD General Surgery [facility] Consent for Procedure/Surger yon 12-19-2020 Consent for Procedure/Surgery [id number] Normal [facility] Ambulatory Clinical Summaryo n 12-16-2020 Ambulatory Clinical Summary {[id number] Normal [facility] Patient Educationon 12-17-19 21 Patient [...] ? Medicines taken, including vitamins, herbs, eyedrops, dwpr-rie-cubambr medicines, and creams. ? Use of steroids [...] medicines have worn off. ? Only take oapw-rvv-frceiun or prescription medicines for pain, discomfort, or [...] Document Reviewed: 11/18/2008 ExitCare? Patient Information ?2014 [employer]. Radiology Colonoscopy, Adult, Care After This sheet [...] slower pace than normal. ? Eat soft, rgoj-oz-wzyacb foods. ? Take dnpl-tup-jerzlom or prescription medicines only as told by [...] your h (more content not included)... Normal [facility] HEPATITIS PANEL, ACUTEon HBsAg Screen Negative Normal Negative [facility] Comment on above: Performed By: #### H EPACUT #### [facility] [address] [place] Hep A Ab, IgM Negative Normal Negative [facility] Comment on above: Performed By: #### H EPACUT #### [facility] [address] [place], [place] [address] Mar[place] Hep B Core Ab, IgM Negative Normal Negative [facility] Comment on above: Performed By: #### H EPACUT #### [facility] [address] [place], [place] [address] [facility] Hep C Virus Ab <0.1 Normal 0.0-0.9 [facility] Comment on above: Result Comment: Nega tive: < 0.8 Indeterminate: 0.8 - 0.9 Positive: > 0.9 . The CDC recommends that a positive HCV antibody result be followed up with a HCV Nucleic Acid Amplification test (932092). Performed By: #### H EPACUT #### [facility] [address] [place], [place] [id number] Marcosjeremy Rainen BNPon 11-30-2020 Natriuretic peptide B (Bld) [Mass/Vol] 65.0 pg/mL Normal <=900.0 [facility] Comment on above: Performed By: #### C BC #### [facility] [address] [place], [place] [id number] [place] CBC AUTO DIFFon 11-30-2020 BASO # 0.0 103/ul Normal 0.0-0.1 [facility] Comment on above: Performed By: #### C BC #### [facility] [address] [place] [address] [place] Basophils/100 WBC (Bld) 0.2 % Normal 0.2-2.0 [facility] Comment on above: Performed By: #### C BC #### [facility] [address] [place] [address] [place] EO # 0.3 103/ul Normal 0.0-0.7 [facility] Comment on above: Performed By: #### C BC #### [facility] [address] [place] [address] [place] Eosinophils/100 WBC (Bld) 2.8 % Normal 0.9-7.0 [facility] Comment on above: Performed By: #### C BC #### [facility] [address] [place], [place] [id number] [place] Erythrocyte distribution width (RBC) [Ratio] 15.3 % Critically high 11.0-15.0 [facility] Comment on above: Performed By: #### C BC #### [facility] [address] [place] [address] [place] Hematocrit (Bld) [Volume fraction] 41.8 % Normal 36.0-48.0 [facility] Comment on above: Performed By: #### C BC #### [facility] [address] [place], [place] [id number] [place] Hemoglobin (Bld) [Mass/Vol] 13.8 g/dL Normal 12.0-16.0 [facility] Comment on above: Performed By: #### C BC #### [facility] [address] [place] [address] [place] IG # 0.01 10e3/ul Normal 0.00-0.03 [facility] Comment on above: Performed By: #### C BC #### [facility] [address] [place] [address] [place] IG % 0.1 % Normal 0.0-0.5 [facility] Comment on above: Performed By: #### C BC #### [facility] [address] [place] [address] [place] LYMPH # 4.3 103/ul Critically high 1.2-3.8 [facility] Comment on above: Performed By: #### C BC #### [facility] [address] [place] [address] [place] Lymphocytes/100 WBC (Bld) 46.3 % Normal 20.5-60.0 [facility] Comment on above: Performed By: #### C BC #### [facility] [address] [place] [address] [place] MANUAL DIFF REQ NO Normal [facility] Comment on above: Performed By: #### C BC #### [facility] [address] [place] [address] [place] MCH (RBC) [Entitic mass] 29.6 pg Normal 26.7-34.0 [facility] Comment on above: Performed By: #### C BC #### [facility] [address] [place] [address] [place] MCHC (RBC) [Mass/Vol] 33.0 g/dL Normal 29.9-35.2 [facility] Comment on above: Performed By: #### C BC #### [facility] [address] [place] [address] [place] MCV (RBC) [Entitic vol] 89.5 fL Normal 81.0-99.0 [facility] Comment on above: Performed By: #### C BC #### [facility] [address] [place] [address] Marcosjeremy Mcgregor MONO # 0.6 103/ul Normal 0.3-0.8 [facility] Comment on above: Performed By: #### C BC #### [facility] [address] [place], [place] [id number] [place] Monocytes/100 WBC (Bld) 6.6 % Normal 1.7-12.0 [facility] Comment on above: Performed By: #### C BC #### [facility] [address] [place] [address] Marcosjeremy Rainen NEUT # 4.1 103/ul Normal 1.4-6.5 [facility] Comment on above: Performed By: #### C BC #### [facility] [address] [place] [address] [place] Neutrophils/100 WBC (Bld) 44.0 % Normal 43.0-75.0 [facility] Comment on above: Performed By: #### C BC #### [facility] [address] [place] [address] [place] Platelet mean volume (Bld) [Entitic vol] 10.0 fL Normal 9.5-13.5 [facility] Comment on above: Performed By: #### C BC #### [facility] [address] [place] [address] Marcosjeremy Rainen PLT 220 103/ul Normal 150-450 [facility] Comment on above: Performed By: #### C BC #### [facility] [address] [place] [address] [place] RBC 4.67 106/ul Normal 4.20-5.40 [facility] Comment on above: Performed By: #### C BC #### [facility] [address] [place], [place] [address] [place] WBC 9.3 103/ul Normal 4.0-11.0 [facility] Comment on above: Performed By: #### C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
== END 2024-05-27 13:26 | disposition home or self-care (01) ==
LOC: MRI 13:25
PROVIDERS: PCP Family Medicine; Visit Provider Family Medicine
DX: M54.12 Radiculopathy, cervical region (principal); M50.30 Other cervical disc degeneration, unspecified cervical region
CPT/HCPCS: 72141

== ENCOUNTER 2024-06-16 07:50 | Outpatient (OUT) | payer OTHER, SELFPAY ==
--- NOTE | 2024-06-16 07:53 | CT_ITS ---
The [address] [address] Patient Name: JUAN ARMSTRONG MRN: [id number] date: 1970 Sex: F Assigned Patient Location: CT Current Patient Location: CT Accession/Order Number: [id number] Exam Date: 06/16/2024 11:20 Report Date: 06/16/2024 11:32 At the request of: ALO WALLIS MD Procedure: CT lung screening low-dose LOW-DOSE SCREENING CHEST CT WITHOUT CONTRAST COMPARISON: 06/13/2023 CLINICAL DATA: Current smoker with greater than 20 years of tobacco use. Cough. Spiral axial unenhanced low-dose images were obtained through the chest. Images were reviewed using both narrow and wide window settings. This CT exam was performed using one or more following dose reduction techniques: Automated exposure control, adjustment of the mA and/or kV according to patient size, or use of iterative reconstruction technique. The heart is within normal limits for size. No pericardial effusion is seen. There is coronary artery disease. No aortic aneurysm is identified. Minor atherosclerotic plaque is visualized at the aortic arch and proximal great vessels. Small scattered mediastinal lymph nodes are again seen. Degenerative changes are present at the spine. There is chronic deformity at the right third costovertebral junction. There is minimal atelectasis or scarring. No focal consolidation, pleural effusion or pneumothorax is identified. There are 3 tiny similar right upper lobe pulmonary nodules. No new nodularity is seen. Limited cuts through the upper abdomen again show calcifications within the liver. CT/CT lung screening low-dose IMPRESSION: STABLE TINY RIGHT UPPER LOBE PULMONARY NODULES. NO NEW NODULARITY. Lung RADS category 2 - benign Twelve-month low-dose CT follow-up suggested. Impression dictated by: Meche Gutierrez M.D.06/16/2024 11:32 AM Dictation Location: [place] [address] Electronically authenticated by: [id number] Y Date: 06/16/2024 11:32
--- OUTSIDE RECORDS SUMMARY | 2024-06-16 08:02 | XMS_ITS | CCD ---
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 Name Role Phone Alo Romero Primary Care Provider [phone] TRAUMA SURGEONS [facility] [place] Consulting Radhika vailable EAN DELGADO Attending [...] Facility (1 source) Aspirin Drug Allergy [facility] (2 sources) Sulfamethoxazole / Trimethoprim Drug Allergy 03-20-20 16 [facility] (1 source) Sulfonamides (Antibiotic) Drug allergy (disorder) 11-24-19 21 [facility] (1 source) Aspirin Drug Allergy shortness of breath [facility] Other (1 source) Sulf-10 Drug allergy Unknown [facility] Other Medications Current Medications Medication Drug Class(es) Dates Sig (Normalized) Sig (Original) [id number] 200 actuat albuterol 0.09 mg/actuat metered dose [...] Onset: 06-13-2021 Episodic Other aftercare (1 source) 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; Translations: [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 USE ORAL 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 DX] Onset: 01-06-2021 Episodic [...] by Marty Esteves on 04/18/2022 1143 Normal [facility] 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 COVID/FLU RT-PCRon 2 SARS-CoV-2 (COVID-19) RNA FANNY+probe Ql (Unsp spec) Negative [facility] Other COVID/FLU RT-PCR Positive [facility] Other COVID/FLU RT-PCR Negative [facility] Other XR Hip 1 View Right w/ Pelvi son 01-02-2022 XR Hip 1 View Right w/ Pelvis HISTORY: Please see the left hip x-ray report from this same date Report reported and signed by Marty Esteves on 01/02/2022 1047 Normal [facility] XR Hip Complete Left*on 12-21 XR [...] by Marty Esteves on 01/02/2022 1048 Normal [facility] Specialist Physician Referralon 022 Physician Referral [id number]:127 Normal [facility] PROF CHEM 8 (BAS METB)on Anion gap [Moles/Vol] 9.9 mmol/L Normal [facility] Comment on above: Performed By: #### B MP #### [facility] [address] [place] [address] Dr. Jonatan Mancilla Calcium [Mass/Vol] 8.8 mg/dL Normal 8.5-10.1 [facility] Comment on above: Performed By: #### B MP #### [facility] [address] [address] [address] Jonatan Mancilla Chloride [Moles/Vol] 105 mmol/L Normal 98-107 [facility] Comment on above: Performed By: #### B MP #### [facility] [address] [address] [address] Jonatan Mancilla CO2 [Moles/Vol] 28.4 mmol/L Normal 21.0-32.0 [facility] Comment on above: Performed By: #### B MP #### [facility] [address] [address] [address] Jonatan Mancilla Creatinine [Mass/Vol] 0.76 mg/dL Normal 0.55-1.02 [facility] Comment on above: Performed By: #### B MP #### [facility] [address] [address] [address] Jonatan Mancilla EGFR-AF GERMAN >60 Normal >=60 [facility] Comment on above: Performed By: #### B MP #### [facility] [address] [address] [address] Jonatan Mancilla EGFR-NON AF GERMAN >60 Normal >=60 [facility] Comment on above: Performed By: #### B MP #### [facility] [address] [address] [address] Jonatan Mancilla Glucose [Mass/Vol] 147 mg/dL Critically high 74-106 [facility] Comment on above: Performed By: #### B MP #### [facility] [address] [address] [address] Jonatan Mancilla Potassium [Moles/Vol] 4.3 mmol/L Normal 3.5-5.1 [facility] Comment on above: Performed By: #### B MP #### [facility] [address] [place] [address] Dr. Jonatan Mancilla Sodium [Moles/Vol] 139 mmol/L Normal 136-145 [facility] Comment on above: Performed By: #### B MP #### [facility] [address] [address] [address] Jonatan Mancilla Urea nitrogen [Mass/Vol] 17.0 mg/dL Normal 7.0-18.0 [facility] Comment on above: Performed By: #### B MP #### [facility] [address] [address] [address] Jonatan Mancilla Urea nitrogen/Creatinine [Mass ratio] 22.4 mg/mg Normal [facility] Comment on above: Performed By: #### B MP #### [facility] [address] [place], [place] [address] Dr. Jonatan Mancilla GLUCOSE METERon 09-22-2021 Glucose [Mass/Vol] 136 mg/dL High 70-99 [facility] Comment on above: Result Comment: Fast ing GLUCOSE reference range has been updated per (ADA) [place] Diabetes Association's recommendation. 07/15/2018 Performed By: #### L 500.37769 #### Test performed at: [address] [address] OPERATIVE REPORTon OPERATIVE REPORT NAME: RADHA KNIGHT MR#: [id number] SURGEON: Carlos Garcia MD DATE OF SURGERY: [...] There were no complications. CARLOS GARCIA MD JFRaysa/MIGUEL/[id number] E/S: Carlos Garcia MD 10/04/21 1121 Electronically Signed [facility] PT NAME: RADHA KNIGHT MR#: [id number] [address] [id number] ACCT: [id number] : 70 OPERATIVE REPORT Normal [facility] MRI LSPRESTON HOLLOW WO CONon 08-12-19 MRI [facility] WO CON EXAM: MRI scan [...] by: Leidy DELGADO Date: 2021-08-11 16:12 Normal [facility] XR LSPINE MIN 4 VIEWSon 06-21 [...] by: DOREEN LIVE Date: 2021-07-17 09:40 Normal [facility] INSULINon 06-10-2021 Insulin 13.0 uIU/mL Normal 2.6-24.9 [facility] Comment on above: Performed By: #### B MP #### [facility] [address] [place] [address] Dr. Jonatan Mancilla BNPon 06-09-2021 Natriuretic peptide B (Bld) [Mass/Vol] 86.0 pg/mL Normal <=900.0 [facility] Comment on above: Performed By: #### B MP #### [facility] [address] [place] [address] Dr. Jonatan Mancilla CBC AUTO DIFFon 06-09-2021 BASO # 0.0 103/ul Normal 0.0-0.1 [facility] Comment on above: Performed By: #### B MP #### [facility] [address] [place] [address] Dr. Jonatan Mancilla Basophils/100 WBC (Bld) 0.3 % Normal 0.2-2.0 [facility] Comment on above: Performed By: #### B MP #### [facility] [address] [place] [address] Dr. Jonatan Mancilla EO # 0.3 103/ul Normal 0.0-0.7 [facility] Comment on above: Performed By: #### B MP #### [facility] [address] [place] [address] Dr. Jonatan Mancilla Eosinophils/100 WBC (Bld) 3.7 % Normal 0.9-7.0 [facility] Comment on above: Performed By: #### B MP #### [facility] [address] [place] [address] Dr. Jonatan Mancilla Erythrocyte distribution width (RBC) [Ratio] 15.4 % Critically high 11.0-15.0 [facility] Comment on above: Performed By: #### B MP #### [facility] [address] [place] [address] Dr. Jonatan Mancilla Hematocrit (Bld) [Volume fraction] 44.9 % Normal 36.0-48.0 [facility] Comment on above: Performed By: #### B MP #### [facility] [address] [place] [address] Dr. Jonatan Mancilla Hemoglobin (Bld) [Mass/Vol] 14.7 g/dL Normal 12.0-16.0 [facility] Comment on above: Performed By: #### B MP #### [facility] [address] [place] [address] Dr. Jonatan Mancilla IG # 0.02 10e3/ul Normal 0.00-0.03 [facility] Comment on above: Performed By: #### B MP #### [facility] [address] [place] [address] Dr. Jonatan Mancilla IG % 0.3 % Normal 0.0-0.5 [facility] Comment on above: Performed By: #### B MP #### [facility] [address] [place] [address] Dr. Jonatan Mancilla LYMPH # 2.9 103/ul Normal 1.2-3.8 [facility] Comment on above: Performed By: #### B MP #### [facility] [address] [place] [address] Dr. Jonatan Mancilla Lymphocytes/100 WBC (Bld) 43.3 % Normal 20.5-60.0 [facility] Comment on above: Performed By: #### B MP #### [facility] [address] [place] [address] Dr. Jonatan Mancilla MANUAL DIFF REQ NO Normal [facility] Comment on above: Performed By: #### B MP #### [facility] [address] [place] [address] Dr. Jonatan Mancilla MCH (RBC) [Entitic mass] 29.7 pg Normal 26.7-34.0 [facility] Comment on above: Performed By: #### B MP #### [facility] [address] [place] [address] Dr. Jonatan Mancilla MCHC (RBC) [Mass/Vol] 32.7 g/dL Normal 29.9-35.2 [facility] Comment on above: Performed By: #### B MP #### [facility] [address] [place] [address] Dr. Jonatan Mancilla MCV (RBC) [Entitic vol] 90.7 fL Normal 81.0-99.0 [facility] Comment on above: Performed By: #### B MP #### [facility] [address] [place] [address] Dr. Jonatan Mancilla MONO # 0.4 103/ul Normal 0.3-0.8 [facility] Comment on above: Performed By: #### B MP #### [facility] [address] [place] [address] Dr. Jonatan Mancilla Monocytes/100 WBC (Bld) 5.5 % Normal 1.7-12.0 [facility] Comment on above: Performed By: #### B MP #### [facility] [address] [place] [address] Dr. Jonatan Mancilla NEUT # 3.2 103/ul Normal 1.4-6.5 [facility] Comment on above: Performed By: #### B MP #### [facility] [address] [place] [address] Dr. Jonatan Mancilla Neutrophils/100 WBC (Bld) 46.9 % Normal 43.0-75.0 [facility] Comment on above: Performed By: #### B MP #### [facility] [address] [place] [address] Dr. Jonatan Mancilla Platelet mean volume (Bld) [Entitic vol] 9.2 fL Critically low 9.5-13.5 [facility] Comment on above: Performed By: #### B MP #### [facility] [address] [place] [address] Dr. Jonatan Mancilla PLT 246 103/ul Normal 150-450 [facility] Comment on above: Performed By: #### B MP #### [facility] [address] [place] [address] Dr. Jonatan Mancilla RBC 4.95 106/ul Normal 4.20-5.40 [facility] Comment on above: Performed By: #### B MP #### [facility] [address] [place] [address] Dr. Jonatan Mancilla WBC 6.7 103/ul Normal 4.0-11.0 [facility] Comment on above: Performed By: #### B MP #### [facility] [address] [address] [address] Jonatan Mancilla FREE THYROXINE INDEX T7on FTI 3.77 Normal [facility] Comment on above: Performed By: #### C BC #### [facility] [address] [place] [address] Marcos Mcgregor T3U 34.0 % Normal 23.5-40.5 [facility] Comment on above: Performed By: #### C BC #### [facility] [address] [place] [address] Marcos Mcgregor T4 [Mass/Vol] 11.10 ug/dL Critically high 5.53-11.00 [facility] Comment on above: Performed By: #### C BC #### [facility] [address] [place] [address] Marcos Mcgregor GLYCOHEMOGLOBIN A1Con 2021 ADA RECOMMENDATION ADA THERAPEUTIC TARGET 6.0 - 7.0 ACTION SUGGESTED > 7.0 Normal [facility] Comment on above: Performed By: #### A 1C #### [facility] [address] [place] [address] Dr. Jonatan Mancilla Glucose [Mass/Vol] 143 mg/dL Normal [facility] Comment on above: Performed By: #### A 1C #### [facility] [address] [address] [address] Jonatan Mancilla HbA1c (Bld) [Mass fraction] 6.6 % Critically high <=6.0 [facility] Comment on above: Performed By: #### A 1C #### [facility] [address] [place] [address] Dr. Jonatan Mancilla IRONon 06-09-2021 Iron [Mass/Vol] 102.0 ug/dL Normal 37.0-170.0 [facility] Comment on above: Performed By: #### I KATHIA, VITMUNIRA, VITB12 #### [facility] [address] [place] [address] Dr. Jonatan Mancilla LIPID PROFILEon 06-09-2021 CHOL-HDL RATIO NORM SEE BELOW Normal [facility] Comment on above: Result Comment: 3.3 - 4.4 LOW RISK 4.4 - 7.1 AVERAGE RISK 7.1 - 11.0 MODERATE RISK >11.0 HIGH RISK Performed By: #### C BC #### [facility] [address] [place], [place] [address] Marcos Meche Cholesterol [Mass/Vol] 183 mg/dL Normal <=200 [facility] Comment on above: Performed By: #### C BC #### [facility] [address] [place], [place] [address] Marcos Meche Cholesterol in HDL [Mass/Vol] 54 mg/dL Normal [facility] Comment on above: Performed By: #### C BC #### [facility] [address] [place], [place] [address] Marcos Meche Cholesterol in LDL [Mass/Vol] 107.6 mg/dL Normal [facility] Comment on above: Performed By: #### C BC #### [facility] [address] [place], [place] [address] Marcos Meche Cholesterol.total/C holesterol in HDL [Mass ratio] 3.4 {ratio} Normal [facility] Comment on above: Performed By: #### C BC #### [facility] [address] [place], [place] [address] Marcos Meche HDL NORMAL > or = 60 mg/dl - LO W CARDIOVASCULAR RISK <40 mg/dl - HIGH CARDIOVASCULAR RISK Normal [facility] Comment on above: Performed By: #### C BC #### [facility] [address] [place], [place] [address] Marcos Meche LDL CALC NORMAL SEE BELOW Normal [facility] Comment on above: Result Comment: <100 mg/dl OPTIMAL 100 - 129 mg/dl NEAR OR ABOVE OPTIMAL 130 - 159 mg/dl BORDERLINE HIGH 160 - 189 mg/dl HIGH >190 mg/dl VERY HIGH Performed By: #### C BC #### [facility] [address] [place], [place] [address] Marcos Meche Triglyceride [Mass/Vol] 107 mg/dL Normal <=150 [facility] Comment on above: Performed By: #### C BC #### [facility] [address] [address] Marcos Mcgregor VLDL CALC 21.4 mg/dL Normal [facility] Comment on above: Performed By: #### C BC #### [facility] [address] [address] Marcos Mcgregor PROF 14(COMP METB)on 022 Albumin [Mass/Vol] 3.7 g/dL Normal 3.5-5.0 [facility] Comment on above: Performed By: #### B MP #### [facility] [address] [place] [address] Dr. Jonatan Mancilla Albumin/Globulin [Mass ratio] 1.1 {ratio} Normal [facility] Comment on above: Performed By: #### B MP #### [facility] [address] [place] [address] Dr. Jonatan Mancilla ALP [Catalytic activity/Vol] 66 U/L Normal 38-126 [facility] Comment on above: Performed By: #### B MP #### [facility] [address] [place] [address] Dr. Jonatan Mancilla ALT [Catalytic activity/Vol] 62 U/L Critically high 9-52 [facility] Comment on above: Performed By: #### B MP #### [facility] [address] [place] [address] Dr. Jonatan Mancilla Anion gap [Moles/Vol] 12.3 mmol/L Normal [facility] Comment on above: Performed By: #### B MP #### [facility] [address] [place] [address] Dr. Jonatan Mancilla AST [Catalytic activity/Vol] 35 U/L Normal 14-36 [facility] Comment on above: Performed By: #### B MP #### [facility] [address] [place] [address] Dr. Jonatan Mancilla Bilirubin [Mass/Vol] 0.5 mg/dL Normal 0.2-1.3 [facility] Comment on above: Performed By: #### B MP #### [facility] [address] [address] [address] Jonatan Mancilla Calcium [Mass/Vol] 9.2 mg/dL Normal 8.4-10.2 [facility] Comment on above: Performed By: #### B MP #### [facility] [address] [address] [address] Jonatan Mancilla Chloride [Moles/Vol] 102 mmol/L Normal 98-107 [facility] Comment on above: Performed By: #### B MP #### [facility] [address] [address] [address] Jonatan Mancilla CO2 [Moles/Vol] 29.3 mmol/L Normal 22.0-30.0 [facility] Comment on above: Performed By: #### B MP #### [facility] [address] [place] [address] Dr. Jonatan Mancilla Creatinine [Mass/Vol] 0.66 mg/dL Normal 0.52-1.04 [facility] Comment on above: Performed By: #### B MP #### [facility] [address] [address] [address] Jonatna Mancilla EGFR-AF GERMAN >60 Normal >=60 [facility] Comment on above: Performed By: #### B MP #### [facility] [address] [place] [address] Dr. Jonatan Mancilla EGFR-NON AF GERMAN >60 Normal >=60 [facility] Comment on above: Performed By: #### B MP #### [facility] [address] [address] [address] Jonatan Mancilla Globulin (S) [Mass/Vol] 3.5 g/dL Normal [facility] Comment on above: Performed By: #### B MP #### [facility] [address] [address] [address] Jonatan Mancilla Glucose [Mass/Vol] 99 mg/dL Normal 74-106 [facility] Comment on above: Performed By: #### B MP #### [facility] [address] [address] [address] Jonatan Mancilla Potassium [Moles/Vol] 4.6 mmol/L Normal 3.4-5.0 [facility] Comment on above: Performed By: #### B MP #### [facility] [address] [place] [address] Dr. Jonatan Mancilla Protein [Mass/Vol] 7.2 g/dL Normal 6.1-8.2 [facility] Comment on above: Performed By: #### B MP #### [facility] [address] [place] [address] Dr. Jonatan Mancilla Sodium [Moles/Vol] 139 mmol/L Normal 137-145 [facility] Comment on above: Performed By: #### B MP #### [facility] [address] [place] [address] Dr. Jonatan Mancilla Urea nitrogen [Mass/Vol] 17.0 mg/dL Normal 7.0-17.0 [facility] Comment on above: Performed By: #### B MP #### [facility] [address] [place] [address] Dr. Jonatan Mancilla Urea nitrogen/Creatinine [Mass ratio] 25.8 mg/mg Normal [facility] Comment on above: Performed By: #### B MP #### [facility] [address] [place] [address] Dr. Jonatan Mancilla TSHon 06-09-2021 TSH 1.030 uIU/mL Normal 0.470-4.680 [facility] Comment on above: Performed By: #### C BC #### [facility] [address] [place] [address] Marcos Mcgregor TSH RANGE SEE BELOW Normal [facility] Comment on above: Result Comment: <0.3 4 UIU/ml HYPERTHYROID 0.34-5.60 UIU/ml EUTHYROID >5.60 UIU/ml HYPOTHYROID Performed By: #### C BC #### [facility] [address] [place] [address] Marcos Mcgregor VITAMIN B12on 06-09-2021 Cobalamin (Vitamin B12) [Mass/Vol] 590.0 pg/mL Normal 239.0-931.0 [facility] Comment on above: Performed By: #### I KATHIA, VITAD, VITB12 #### [facility] [address] [address] [address] Jonatan Mancilla VITAMIN D 25 OHon 06-09-2021 VIT D 25-OH 29.2 ng/mL Normal [facility] Comment on above: Performed By: #### I KATHIA, VITAD, VITB12 #### [facility] [address] [place] [address] Dr. Jonatan Mancilla VIT D RANGES SEE BELOW Normal [facility] Comment on above: Result Comment: <20 ng/mL Vit D deficient 20 - <30 ng/mL Vit D insufficient 30 - 100 ng/mL Vit D sufficient >100 ng/mL Potential Toxicity Performed By: #### I KATHIA, VITAD, VITB12 #### [facility] [address] [place] [address] Dr. Jonatan Mancilla Covid-19 PCR ([facility])on 04-22 SARS-CoV-2 (COVID-19) RNA FANNY+probe Ql (Unsp spec) Not detected Normal NOT DETECTED [facility] Comment on above: Result Comment: This test is not yet approved or cleared by the [place] FDA. When there are no FDA-approved or cleared tests available, and other criteria are met, FDA can make tests available under an emergency access mechanism called an Emergency Use Authorization (EUA). The EUA for this test is supported by the [employer] Manager of Health and Human Service's (HHS's) declaration [...] SARS-CoV-2. Performed By: #### C BC #### [facility] [address] [place], [place] [id number] Marcos Mcgregor Outside Colonoscopyon 2020 Outside Colonoscopy [id number] .[id number]:127 Normal [facility] POINT OF CARE GLUCOSEon 12-21 Glucose [Mass/Vol] 123 mg/dL Critically high 74-106 T [facility] Comment on above: Performed By: #### P OCGLUC #### [facility] [address] [address] [address] Jonatan Mancilla Lab Reportson 01-02-2021 Lab Reports [id number] .[id number]:127 Normal [facility] Covid-19 PCR ([facility])on 12-21 SARS-CoV-2 (COVID-19) RNA FANNY+probe Ql (Unsp spec) Not detected Normal NOT DETECTED [facility] Comment on above: Result Comment: This test is not yet approved or cleared by the [place] FDA. When there are no FDA-approved or cleared tests available, and other criteria are met, FDA can make tests available under an emergency access mechanism called an Emergency Use Authorization (EUA). The EUA for this test is supported by the [employer] Manager of Health and Human Service's (HHS's) declaration [...] SARS-CoV-2. Performed By: #### B MP #### [facility] [address] [place] [address] Dr. Jonatan Mancilla Provider [facility] Provider Letter [facility] December 22, 2020 Alo Romero, [address] [place] [address] [place] [address] Re: RADHA KNIGHT Date of : 1970 Thank you for your referral of Radha Knight who was seen on consultation on December 16, 2020, for screening colonoscopy. I have enclosed my consultation notes for your review. I will be happy to follow Radha. Sincerely, Meghann Dias MD General Surgery [facility] Consent for Procedure/Surger yon 12-19-2020 Consent for Procedure/Surgery [id number] .[id number]:127 Normal [facility] Ambulatory Clinical Summaryo n 12-16-2020 Ambulatory Clinical Summary {[id number] Normal [facility] Patient Educationon 12-17-19 21 Patient Education Colonoscopy [...] ? Medicines taken, including vitamins, herbs, eyedrops, cklv-who-yuucpgb medicines, and creams. ? Use of steroids [...] medicines have worn off. ? Only take fwbx-gha-sdrjzcm or prescription medicines for pain, discomfort, or [...] Document Reviewed: 11/18/2008 ExitCare? Patient Information ?2014 REGISTRAT-MAPI. Radiology Colonoscopy, Adult, Care After This sheet [...] slower pace than normal. ? Eat soft, epao-hu-tjgogj foods. ? Take numx-kug-jdrbljn or prescription medicines only as told by [...] your h (more content not included)... Normal [facility] HEPATITIS PANEL, ACUTEon HBsAg Screen Negative Normal Negative [facility] Comment on above: Performed By: #### H EPACUT #### [facility] [address] [place] Hep A Ab, IgM Negative Normal Negative [facility] Comment on above: Performed By: #### H EPACUT #### [facility] [address] [place], [place] [address] Marcos Meche Hep B Core Ab, IgM Negative Normal Negative [facility] Comment on above: Performed By: #### H EPACUT #### [facility] [address] [place], [place] [address] [facility] Hep C Virus Ab <0.1 Normal 0.0-0.9 [facility] Comment on above: Result Comment: Nega tive: < 0.8 Indeterminate: 0.8 - 0.9 Positive: > 0.9 . The CDC recommends that a positive HCV antibody result be followed up with a HCV Nucleic Acid Amplification test (122341). Performed By: #### H EPACUT #### [facility] [address] [place], [place] [id number] Marcosjeremy Rainen BNPon 11-30-2020 Natriuretic peptide B (Bld) [Mass/Vol] 65.0 pg/mL Normal <=900.0 [facility] Comment on above: Performed By: #### C BC #### [facility] [address] [place], [place] [id number] Marcos Meche CBC AUTO DIFFon 11-30-2020 BASO # 0.0 103/ul Normal 0.0-0.1 [facility] Comment on above: Performed By: #### C BC #### [facility] [address] [place] [address] Marcos Meche Basophils/100 WBC (Bld) 0.2 % Normal 0.2-2.0 [facility] Comment on above: Performed By: #### C BC #### [facility] [address] [place] [address] Marcos Meche EO # 0.3 103/ul Normal 0.0-0.7 [facility] [facility] Comment on above: Performed By: #### C BC #### [facility] [address] [place] [address] Marcos Meche Eosinophils/100 WBC (Bld) 2.8 % Normal 0.9-7.0 [facility] Comment on above: Performed By: #### C BC #### [facility] [address] [place], [place] [id number] Marcos Meche Erythrocyte distribution width (RBC) [Ratio] 15.3 % Critically high 11.0-15.0 [facility] Comment on above: Performed By: #### C BC #### [facility] [address] [place] [address] Marcos Meche Hematocrit (Bld) [Volume fraction] 41.8 % Normal 36.0-48.0 [facility] Comment on above: Performed By: #### C BC #### [facility] [address] [place], [place] [id number] Marcos Meche Hemoglobin (Bld) [Mass/Vol] 13.8 g/dL Normal 12.0-16.0 [facility] Comment on above: Performed By: #### C BC #### [facility] [address] [address] Marcos Meche IG # 0.01 10e3/ul Normal 0.00-0.03 [facility] Comment on above: Performed By: #### C BC #### [facility] [address] [address] Marcos Meche IG % 0.1 % Normal 0.0-0.5 [facility] Comment on above: Performed By: #### C BC #### [facility] [address] [place] [address] Marcos Meche LYMPH # 4.3 103/ul Critically high 1.2-3.8 [facility] Comment on above: Performed By: #### C BC #### [facility] [address] [place] [address] Marcos Meche Lymphocytes/100 WBC (Bld) 46.3 % Normal 20.5-60.0 [facility] Comment on above: Performed By: #### C BC #### [facility] [address] [place] [address] Marcos Meche MANUAL DIFF REQ NO Normal [facility] Comment on above: Performed By: #### C BC #### [facility] [address] [place] [address] Marcos Meche MCH (RBC) [Entitic mass] 29.6 pg Normal 26.7-34.0 [facility] Comment on above: Performed By: #### C BC #### [facility] [address] [place] [address] Marcos Meche MCHC (RBC) [Mass/Vol] 33.0 g/dL Normal 29.9-35.2 [facility] Comment on above: Performed By: #### C BC #### [facility] [address] [place] [address] Marcos Meche MCV (RBC) [Entitic vol] 89.5 fL Normal 81.0-99.0 [facility] Comment on above: Performed By: #### C BC #### [facility] [address] [place] [address] Marcosjeremy Mcgregor MONO # 0.6 103/ul Normal 0.3-0.8 [facility] Comment on above: Performed By: #### C BC #### [facility] [address] [place], [place] [id number] Marcos Mcgregor Monocytes/100 WBC (Bld) 6.6 % Normal 1.7-12.0 [facility] Comment on above: Performed By: #### C BC #### [facility] [address] [place] [address] Marcosjeremy Rainen NEUT # 4.1 103/ul Normal 1.4-6.5 [facility] Comment on above: Performed By: #### C BC #### [facility] [address] [place] [address] Marcos Mcgregor Neutrophils/100 WBC (Bld) 44.0 % Normal 43.0-75.0 [facility] Comment on above: Performed By: #### C BC #### [facility] [address] [place] [address] Marcos Mcgregor Platelet mean volume (Bld) [Entitic vol] 10.0 fL Normal 9.5-13.5 [facility] Comment on above: Performed By: #### C BC #### [facility] [address] [place] [address] Marcosjeremy Rainen PLT 220 103/ul Normal 150-450 [facility] Comment on above: Performed By: #### C BC #### [facility] [address] [place] [address] Marcso Meche RBC 4.67 106/ul Normal 4.20-5.40 [facility] Comment on above: Performed By: #### C BC #### [facility] [address] [place], [place] [id number] Marcos Meche WBC 9.3 103/ul Normal 4.0-11.0 [facility] Comment on above: Performed By: #### C BC #### [facility] [address] [place] [address] Marcos Rainen FREE THYROXINE INDEX T7on FTI 3.05 Normal [facility] Comment on above: Performed By: #### C BC #### [facility] [address] [address] Marcos Mcgregor T3U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
--- NOTE | 2024-06-16 08:22 | MM_ITS ---
Patient Name: JUAN ARMSTRONG MR#: [id number] : 1970 Exam Date: 06/16/2024 Ordering Doctor: DR Alex Romero . RADIOLOGY REPORT PROCEDURE: MM TOMOSYNTHESIS SCREENING BI COMPARISON: MG MAMM SCREEN ABDELRAHMAN W CAD, 11/10/2019. MG MAMM SCREEN ABDELRAHMAN W CAD, 04/01/2015. MG MAMM SCREEN ABDELRAHMAN W CAD, 03/20/2011. INDICATIONS: Screening Calculator Name NCI Breast Cancer Risk Assessment Tool 5 Year Breast Cancer Risk 1.00% Lifetime Breast Cancer Risk 7.50% Personal Breast Cancer No Personal Ovarian Cancer No Treatments None Family Cancers None LOCATION: [facility] BREAST COMPOSITION: There are scattered areas of fibroglandular density. FINDINGS: RIGHT BREAST: No significant suspicious finding. There are similar focal asymmetries. LEFT BREAST: No significant suspicious finding. There are similar focal asymmetries. DIAGNOSTIC CATEGORY 2--BENIGN FINDING. NO CHANGE FROM COMPARISON. RECOMMENDATIONS: ROUTINE MAMMOGRAM AND CLINICAL EVALUATION IN 12 MONTHS. PLEASE NOTE: A NORMAL MAMMOGRAM DOES NOT EXCLUDE THE POSSIBILITY OF BREAST CANCER. A CLINICALLY SUSPICIOUS PALPABLE LUMP SHOULD BE BIOPSIED. Dictated by: Олег Chandler MD on 06/16/2024 at 13:53 Approved by: Олег Chandler MD on 06/16/2024 at 14:03
== END 2024-06-16 07:51 | disposition home or self-care (01) ==
LOC: CT 07:50
PROVIDERS: PCP Family Medicine; Visit Provider Family Medicine
DX: Z12.31 Encounter for screening mammogram for malignant neoplasm of breast (principal); F17.210 Nicotine dependence, cigarettes, uncomplicated; R91.8 Other nonspecific abnormal finding of lung field
CPT/HCPCS: 71271; 77063; 77067

== ENCOUNTER 2024-10-14 11:40 | Emergency (ER) | payer MEDICARE, SELFPAY ==
[2024-10-14 11:44] VITALS: BP 177/90; PULSE 75; TEMP 36.8; O2SAT 95; BMI 25.0
--- OUTSIDE RECORDS SUMMARY | 2024-10-14 11:47 | XMS_ITS | Clinical Summary ---
Author Organization [facility] Address [address] [place] [address] Care Team Providers Care Transit Coach Operator Name Role Phone Unavailable Primary Care Provider Unavailabl e Social History Tobacco Use Types Packs/Day Years Used Date Smoking Tobacco: Never Assessed Comments Unknown Sex and Gender Information Value Date Recorded Sex Assigned at Not on file Legal Sex Female 7:12 PM EDT Gender Identity Not on file Sexual Orientation Not on file Last Filed Vital Signs Vital Sign Reading Time Taken Comments Blood Pressure 138/82 10/26/2021 12:00 PM EDT Pulse - - Temperature - - Respiratory Rate - - Oxygen Saturation - - Inhaled Oxygen Concentration - - Weight 101 kg (223 lb) 02/28/2022 12:00 PM EST Height 167.6 cm (5' 6 ) 04/18/2022 12:00 PM EST Body Mass Index 35.99 02/28/2022 12:00 PM EST Plan of Treatment Not on file
--- OUTSIDE RECORDS SUMMARY | 2024-10-14 11:47 | XMS_ITS | Clinical Summary ---
[facility] [employer] [facility] Address [id number] [address] [place] [address] Care Team Providers Care Crawler Tractor Operator Name Role Phone Unavailable Primary Care Provider Unavailabl e Social History Tobacco Use Types Packs/Day Years Used Date Smoking Tobacco: Never Assessed Childcare Answer Date Recorded Childcare Unknown 10/01/2018 Employment Answer Date Recorded Employment Unknown 10/01/2018 Comments Unknown Sex and Gender Information Value Date Recorded Sex Assigned at Not on file Legal Sex Female 11:53 AM EDT Gender Identity Not on file Sexual Orientation Not on file Plan of Treatment Health Maintenance Due Date Last Done Comments Depression Screening 1982 Tobacco Screening 1982 Adult BMI Screening 1988 DTaP,Tdap and Td Vaccines (1 - Tdap) 1989 Pap Smear 1991 Zoster (Shingles) Vaccine (1 of 2) 2020 Influenza Vaccine 12/21/2024 [employer] Not on file
--- OUTSIDE RECORDS SUMMARY | 2024-10-14 11:47 | XMS_ITS | Clinical Summary ---
Author Organization [facility] Address [address] [place] [address] Phone Care Team Providers Care Braille Translator Name Role Phone Unavailable Primary Care Provider Unavailabl e Social History Tobacco Use Types Packs/Day Years Used Date Smoking Tobacco: Never Assessed Comments Unknown Sex and Gender Information Value Date Recorded Sex Assigned at Not on file Legal Sex Female 10:37 PM EST Gender Identity Not on file Sexual Orientation Not on file Plan of Treatment Not on file
--- NOTE | 2024-10-14 11:59 | CT_ITS ---
The [address] [address] Patient Name: JUAN ARMSTRONG MRN: [id number] date: 1970 Sex: F Assigned Patient Location: ER Current Patient Location: ER Accession/Order Number: [id number] Exam Date: 10/14/2024 12:50 Report Date: 10/14/2024 12:57 At the request of: LEROY ARMENTA MD Procedure: CT abdomen pelvis w con CT abdomen pelvis w con 10/14/2024 12:17 PM SIGNS AND SYMPTOMS: Lower abdominal cramping with blood in stools TECHNIQUE: Multidetector ct axial images of the abdomen and pelvis were obtained without IV contrast. Multiplanar reformats were performed and reviewed to further define anatomy and possible pathology. CT was performed with one or more of the following dose reduction techniques: Automated exposure control, adjustment of the mA and/or kV according to patient size, or use of iterative reconstruction technique. COMPARISON: 03/24/2023 FINDINGS: Lower Chest: Atherosclerotic changes are noted in the coronary arteries. ABDOMEN: Liver: There is a calcified granuloma in the left hepatic lobe. Bile Ducts: Normal caliber. Gallbladder: Previously removed Pancreas: Within normal limits. Spleen: Within normal limits. Adrenals: Within normal limits. Kidneys: Within normal limits. Pelvis: Reproductive Organs: No pelvic masses. Ureters: Within normal limits. Bladder: Within normal limits. Bowel: There is wall thickening with adjacent fat stranding involving the colon, greatest in the transverse through sigmoid colon suspicious for colitis which may be infectious or inflammatory. There is a normal appendix in the right lower quadrant. There is no bowel obstruction. Mesenteric Lymph Nodes: No enlarged mesenteric lymph nodes. Peritoneum: No ascites or free air, no fluid collection. Vessels: Atherosclerotic changes are noted in the abdominal aorta and its branches. Retroperitoneum: Within normal limits. Abdominal Wall: Within normal limits. Bones: Degenerative changes are noted in the thoracolumbar spine as well as the hips and sacroiliac joints. There is enthesophyte formation over the iliac wings and greater trochanters. CT/CT abdomen pelvis w con IMPRESSION: There is wall thickening with adjacent fat stranding involving the colon, greatest in the transverse through sigmoid colon suspicious for colitis which may be infectious or inflammatory. No bowel obstruction or obstructive uropathy. Impression dictated by: Олег Chandler M.D. 10/14/2024 12:57 PM Dictation Location: [place] [address] Electronically authenticated by: [id number] Y Date: 10/14/2024 12:57
--- NOTE | 2024-10-14 12:00 | ED.GENADUL1 ---
HPI HPI - General Adult General Chief complaint: Abdominal Pain Stated complaint: ABDOMIN PAIN BLOODY STOOL Time Seen by Provider: 10/14/24 11:45 Source: patient Mode of arrival: walk-in Limitations: no limitations History of Present Illness HPI narrative: 54-year-old female presents for abdominal pain. She states it is in her lower abdomen towards the center. She also has blood in her stool and the symptoms started today. She has had diverticulitis previously. It has been a few years since she had a colonoscopy and she states they took off some polyps. No fever or trauma. Related Data Home Medications ?Medication ?Instructions ?Recorded ?Confirmed carvedilol 25 mg tablet 25 mg PO Q12H 03/24/23 10/14/24 ferrous sulfate 325 mg (65 mg 325 mg PO BID 03/24/23 10/14/24 iron) tablet (FeroSul) glimepiride 4 mg tablet 4 mg PO DAILY 03/24/23 10/14/24 metformin 500 mg tablet 500 mg PO BID 03/24/23 10/14/24 amlodipine 5 mg tablet 5 mg PO DAILY 10/14/24 10/14/24 citalopram 40 mg tablet 40 mg PO DAILY 10/14/24 10/14/24 duloxetine 30 mg capsule,delayed 30 mg PO DAILY 10/14/24 10/14/24 release irbesartan 300 mg tablet 300 mg PO DAILY 10/14/24 10/14/24 Previous Rx's ?Medication ?Instructions ?Recorded ciprofloxacin HCl 500 mg tablet 500 mg PO Q12H #20 tabs 10/14/24 (Cipro) metronidazole 500 mg tablet 500 mg PO TID #30 tabs 10/14/24 Allergies Allergy/AdvReac Type Severity Reaction Status Date / Time Sulfa (Sulfonamide Allergy Intermediate Hives Verified 10/14/24 11:44 Antibiotics) Opioid HPI Opioid Management Most Recent Opioid Data: Last Pain Scale 10 03/24/23, 21:19 Review of Systems ROS Narrative A ten point review of systems is negative except as noted above. PFSH PFSH Social History Little interest or pleasure in doing things: not at all Feeling down, depressed, or hopeless: not at all Exam Narrative Exam Narrative: Nurses note and vital signs reviewed and patient is not hypoxic. General: The patient appears well and in no apparent distress. Patient is resting comfortably on cart. Skin: Warm, dry, no pallor noted. There is no rash noted. Head: Normocephalic, atraumatic Eye: Normal conjunctiva, no drainage Ears, Nose, Mouth, and Throat: oral mucosa is moist. Nares patent. Cardiovascular: Regular Rate and Rhythm Respiratory: Patient is in no distress, no accessory muscle use, lungs are clear to auscultation, no wheezing, rales or rhonchi Back: non-tender GI: Soft and nondistended. She has tenderness across the lower abdomen particularly at the midline Musculoskeletal: The patient has no evidence of calf tenderness, no pitting edema, symmetrical pulses noted bilaterally Neurological: A&O, normal speech Psychiatric: Cooperative Constitutional Vital Signs, click to edit/add: Last Vital Signs Temp 98.3 F 10/14/24 11:44 Pulse 75 10/14/24 11:44 Resp 18 10/14/24 11:44 BP 177/90 H 10/14/24 11:44 Pulse Ox 95 10/14/24 11:44 O2 Del Method Room Air 10/14/24 11:44 Course Vital Signs Vital signs: Vital Signs Temperature 98.3 F 10/14/24 11:44 Pulse Rate 75 10/14/24 11:44 Respiratory Rate 18 10/14/24 11:44 Blood Pressure 177/90 H 10/14/24 11:44 Pulse Oximetry 95 10/14/24 11:44 Oxygen Delivery Method Room Air 10/14/24 11:44 Temperature 98.3 F 10/14/24 11:44 Pulse Rate 75 10/14/24 11:44 Respiratory Rate 18 10/14/24 11:44 Blood Pressure 177/90 H 10/14/24 11:44 Pulse Oximetry 95 10/14/24 11:44 Oxygen Delivery Method Room Air 10/14/24 11:44 Medical Decision Making MDM Narrative Medical decision making narrative: Her workup indicates colitis on the CAT scan. WBC is normal. At this point she does not require admission to the hospital. She was given IV Cipro and Flagyl and discharged home on same. Treatment diagnosis and follow-up were discussed with the patient. Differential Diagnosis Differential Diagnosis: Diverticulitis, colitis, infectious diarrhea Lab Data Lab results reviewed: Yes I reviewed the patient's lab results Labs: Lab Results 10/14/24 Range/Units 12:32 WBC 6.8 (4.0-11.0) 10^3/uL RBC 4.80 (4.20-5.40) 10^6/uL Hgb 15.5 (12.0-16.0) g/dL Hct 45.3 (36.0-48.0) % MCV 94.4 (81.0-99.0) fL MCH 32.3 (26.7-34.0) pg MCHC 34.2 (29.9-35.2) g/dL RDW 14.4 (11.0-15.0) % Plt Count 204 (150-450) 10^3/uL MPV 9.4 L (9.5-13.5) fL Neut % (Auto) 56.6 (43.0-75.0) % Lymph % (Auto) 31.1 (20.5-60.0) % Towner % (Auto) 8.7 (1.7-12.0) % Eos % (Auto) 2.8 (0.9-7.0) % Baso % (Auto) 0.7 (0.2-2.0) % Neut # (Auto) 3.8 (1.4-6.5) 10^3/uL Lymph # (Auto) 2.1 (1.2-3.8) 10^3/uL Towner # (Auto) 0.6 (0.3-0.8) 10^3/uL Eos # (Auto) 0.2 (0.0-0.7) 10^3/uL Baso # (Auto) 0.1 (0.0-0.1) 10^3/uL Abs Immat Gran (auto) 0.01 (0.00-0.03) 10^3/uL Imm/Tot Granulo (auto) 0.1 (0.0-0.5) % Sodium 135 L (136-145) mmol/L Potassium 5.0 (3.5-5.1) mmol/L Chloride 100 (98-107) mmol/L Carbon Dioxide 28.6 (21.0-32.0) mmol/L Anion Gap 11.4 BUN 18.0 (7.0-18.0) mg/dL Creatinine 0.82 (0.55-1.02) mg/dL Est GFR ( Amer) >60 (>=60 mL/min/1.73m^2) Est GFR (Non-Af Amer) >60 (>=60 mL/min/1.73m^2) BUN/Creatinine Ratio 22.0 Glucose 93 (74-106) mg/dL Calcium 8.5 (8.5-10.1) mg/dL Total Bilirubin 0.4 (0.2-1.0) mg/dL Direct Bilirubin 0.1 (0.0-0.2) mg/dL AST 23 (15-37) U/L ALT 27 (14-59) U/L Alkaline Phosphatase 65 (46-116) U/L Total Protein 6.9 (6.4-8.2) g/dL Albumin 3.5 (3.4-5.0) g/dL Globulin 3.4 g/dL Albumin/Globulin Ratio 1.0 Amylase 89 (25-115) U/L Lipase 37.0 (16.0-77.0) U/L Imaging Data CT scan - abdomen: Radiologist's impression: ITS Impressions Abdomen/Pelvis CT 10/14/24 11:59 IMPRESSION: There is wall thickening with adjacent fat stranding involving the colon, greatest in the transverse through sigmoid colon suspicious for colitis which may be infectious or inflammatory. No bowel obstruction or obstructive uropathy. Impression dictated by: Олег Chandler M.D. 10/14/2024 12:57 PM Dictation Location: [place] [address] Electronically authenticated by: [id number] Y Date: 10/14/2024 12:57 Discharge Plan Discharge Chief Complaint: Abdominal Pain Clinical Impression: Colitis Patient Disposition: Home, Self-Care Time of Disposition Decision: 13:28 Condition: Good Mode of Transportation: Private Vehicle Prescriptions / Home Meds: New metronidazole 500 mg tablet 500 mg PO TID Qty: 30 0RF ciprofloxacin HCl [Cipro] 500 mg tablet 500 mg PO Q12H Qty: 20 0RF No Action carvedilol 25 mg tablet 25 mg PO Q12H ferrous sulfate [FeroSul] 325 mg (65 mg iron) tablet 325 mg PO BID glimepiride 4 mg tablet 4 mg PO DAILY metformin 500 mg tablet 500 mg PO BID citalopram 40 mg tablet 40 mg PO DAILY irbesartan 300 mg tablet 300 mg PO DAILY amlodipine 5 mg tablet 5 mg PO DAILY duloxetine 30 mg capsule,delayed release(DR/EC) 30 mg PO DAILY Print Language: Setswana Instructions: Colitis (ED) Referrals: Alex Romero MD [Primary Care Provider, Family Practice] - 1 week
[2024-10-14 12:40] LABS: Basophils Absolute Auto 0.1 10^3/uL (0.0-0.1); Basophils Percent Auto 0.7 % (0.2-2.0); Eosinophils Absolute Auto 0.2 10^3/uL (0.0-0.7); Eosinophils Percent Auto 2.8 % (0.9-7.0); Hematocrit 45.3 % (36.0-48.0); Hemoglobin 15.5 g/dL (12.0-16.0); Immature Granulocytes Abs Auto 0.01 10^3/uL (0.00-0.03); Immature Granulocytes Pct Auto 0.1 % (0.0-0.5); Lymphocytes Absolute Auto 2.1 10^3/uL (1.2-3.8); Lymphocytes Percent Auto 31.1 % (20.5-60.0); Mean Corpuscular HGB Conc 34.2 g/dL (29.9-35.2); Mean Corpuscular Hemoglobin 32.3 pg (26.7-34.0); Mean Corpuscular Volume 94.4 fL (81.0-99.0); Mean Platelet Volume 9.4 fL (9.5-13.5); Monocytes Absolute Auto 0.6 10^3/uL (0.3-0.8); Monocytes Percent Auto 8.7 % (1.7-12.0); Neutrophils Absolute Auto 3.8 10^3/uL (1.4-6.5); Neutrophils Percent Auto 56.6 % (43.0-75.0); Platelet Count 204 10^3/uL (150-450); Red Cell Distribution Width 14.4 % (11.0-15.0); White Blood Count 6.8 10^3/uL (4.0-11.0)
[2024-10-14 12:55] LABS: Alanine Aminotransferase 27 U/L (14-59); Albumin Level 3.5 g/dL (3.4-5.0); Alkaline Phosphatase 65 U/L (46-116); Amylase 89 U/L (25-115); Anion Gap 11.4; Aspartate Amino Transferase 23 U/L (15-37); Bilirubin Direct 0.1 mg/dL (0.0-0.2); Bilirubin Total 0.4 mg/dL (0.2-1.0); Calcium 8.5 mg/dL (8.5-10.1); Carbon Dioxide 28.6 mmol/L (21.0-32.0); Chloride 100 mmol/L (98-107); Estimated GFR (African America >60 (>=60 mL/min/1.73m^2); Estimated GFR (Non-African Ame >60 (>=60 mL/min/1.73m^2); Globulin 3.4 g/dL; Glucose 93 mg/dL (74-106); Sodium 135 mmol/L (136-145); Total Protein 6.9 g/dL (6.4-8.2)
[2024-10-14] MEDS: METRONIDAZOLE/SODIUM CHLORIDE 500 MG/100 ML PREMIX 100 MG IV (13:28)
[2024-10-14] MEDS: CIPROFLOXACIN IN 5 % DEXTROSE 400 MG/200 ML PREMIX 200 MG IV (14:27)
== END 2024-10-14 15:30 | disposition home or self-care (01) ==
PROVIDERS: Emergency Provider Emergency Medicine; PCP Family Medicine
DX: K52.9 Noninfective gastroenteritis and colitis, unspecified (principal)
CPT/HCPCS: 36415; 74177; 80048; 80076; 82150; 83690; 85025; 96365; 96366; 96368; 99285; J0744; J1836; Q9967

== ENCOUNTER 2024-10-22 09:05 | Outpatient (OUT) | payer MEDICARE, SELFPAY ==
--- OUTSIDE RECORDS SUMMARY | 2024-06-16 12:10 | XMS_ITS ---
Author Organization [facility] in [place] Address [address] [place] [address] Care Team Providers Care Chemistry Department Chair Name Role Phone Kong Romero Primary Care Provider Encounters Encounter Location Date Provider Diagnosis [facility] [address] [place] [address] 06/16/2024 Kong Romero Plan Of Treatment No Information Progress Notes * Radha ARMSTR[birth year]DOB:[birth year] (54 yo F)Acc No.[id number]:06/16/2024 Patient: Radha CALDERON :1970 A ge:54 Y S ex:Female Address:[address], [address] * true * Date: Generated for Kaila hernandez/Dean/eTransmitting on: 0 10/22/2024 09:07 AM EDT
--- OUTSIDE RECORDS SUMMARY | 2024-09-10 07:54 | XMS_ITS ---
Author Organization [facility] in [place] Address [address] [place] [address] Care Team Providers Care Dietetic Technician Registered Name Role Phone Kong Romero Primary Care Provider REASON FOR VISIT Chronic Care PPW Encounters Encounter Location Date Provider Diagnosis [facility] [address] [place] [address] 09/10/2024 Kong Romero Plan Of Treatment No Information Progress Notes * Radha ARMSTRONGDOB:[birth year] (54 yo F)Acc No.[id number]:09/10/2024 Patient: Leena GUSTAVOCHRISTYRadha :1970 A ge:54 Y S ex:Female Address:[address], [address] * true * Date: Generated for Kaila hernandez/Dean/eTransmitting on: 0 10/22/2024 09:07 AM EDT
--- OUTSIDE RECORDS SUMMARY | 2024-10-19 10:45 | XMS_ITS ---
Author Organization [facility] [place] Address [address] [place] [address] Care Team Providers Care Manufacturing Business Analyst Name Role Phone Heather Kong Primary Care Provider [phone] Allergies Allergen (clinical drug ingredient) Drug/Non Drug Allergy documented on EMR Reaction Allergy Type Onset Date Status Substance with sulfonamide structure and antibacterial mechanism of action (substance) Sulfa Antibiotics Unknown Drug Allergy Active Results Component Value Reference Range Notes UA DIP NONAUTO WO MICRO (810 02) - IN OFFICE (Not yet reviewed by provider) Interpretation: Performing Lab: Notes/Report: COLOR dark yellow CLARITY clear GLUCOSE n BILIRUBIN n KETONE small SPECIFIC GRAVITY 1.020 BLOOD 50 PH 5 PROTEIN trace UROBILINOGEN n NITRITE n LEUKOCYTE ESTERASE n Reason For Referral Reason Bloody diarrhea Diagnosis 1 Gastroenteritis (K52 .9) Referral Organization [facility] Medicine Referring Provider First Name Kong Referring Provider Last Name Heather Referring Provider Speciality Family Med paulina Referred Provider Jaylen Dias Referred Provider Specialty General Surg momo Referral Priority Routine REASON FOR VISIT ER FU-Colitis, had bloody stool-was put on multiple ATBS, making nauseous- not feeling better- was not set up with GI, dx with colon cancer 4 weeks ago, Muscles cramping- happens randomly butmore often now, Urine dark colored Medications Medication SIG (Take, Route, Frequency, Duration) Notes Start Date End Date Status Ventolin HFA 108 (90 Base) MCG/ACT 2 puff as needed Inhalation every 4 hrs for 30 PRN 05/10/2023 Active metroNIDAZOLE 500 MG 1 tablet Orally Thr ee times a day 10/19/2024 Active metFORMIN HCl 500 MG 1 tablet Orally twi ce daily for 90 days Active Irbesartan 300 MG 1 tablet Orally Once a day for 90 days Active Diclofenac Sodium 75 MG 1 tablet as need ed Orally Twice a day for 30 days 05/18/2024 Active Cymbalta 30 MG 1 capsule Orally Onc e a day for 90 days 02/27/2024 Active Ciprofloxacin HCl 500 MG 1 tablet Orally every 12 hrs 10/19/2024 Active Glimepiride 4 MG 1 tablet with breakf ast or the first main meal of the day Orally Once a day for 90 days Active Ferrous Sulfate 325 (65 Fe) MG 1 tablet Orally twice daily for 90 days Active CeleXA 40 MG 1 tablet Orally Once a day for 30 01/07/2023 Active Carvedilol 25 MG 1 tablet with food Orally Twice a day for 90 days Active amLODIPine Besylate 5 MG 1 tablet Orally Once a day for 30 days 04/23/2024 Active Vital Signs Blood pressure systolic 124 mm Hg 10/20/19 25 Blood pressure diastolic 70 mm Hg 025 Height 65 in 10/19/2024 Weight 145.6 lbs 10/19/2024 BMI 24.23 kg/m2 10/19/2024 Procedures Procedure Date Ordered Date Performed Result Body Sit e CARDIO Stress Test - Cardiolite 10/19/2024 N/A Encounters Encounter Location Date Provider Diagnosis [facility] [address] [place] [address] 10/19/2024 Kong Hoy Dark urine R82.998 ; Gastroenteritis K52.9 and Chest pain R07.9 Assessments Encounter Date Diagnosis (ICD Code) Assessment Notes Treatment Notes Treatment Clinical Notes Section Notes 10/19/2024 Dark urine (ICD-10 - R82.998) 10/19/2024 Gastroenteritis (ICD-10 - K52.9) Treating for colitis - needs repaet scope 10/19/2024 Chest pain (ICD-10 - R07.9) 10/19/2024 Other FLYNN and high cholesterol and FH CAD and + SMoker Plan Of Treatment Treatment Notes Assessment Notes Gastroenteritis Treating for colitis - needs repaet scope Other FLYNN and high cholest ignacia and FH CAD and + SMoker Pending Test Test Name Order Date CARDIO Stress Test - Cardiolite 10/20/19 25 UA DIP NONAUTO WO MICRO (75783) - IN OFF ICE 10/19/2024 Referrals Referral Date Details 10/19/2024 10/19/2024, Bloody d iarrhea, Jaylen Nill Progress Notes * Radha ARMSTR[birth year]DOB:[birth year] (54 yo F)Acc No.[id number]:10/19/2024 UNLOCKED PROGRESS NOTE Progress Note Patient: Radha CALDERON Provider: Bj Romero ([facility])MD :1970 A ge:54 Y S ex:Female Date:10/19/2024 Address:[place] [address], [facility] [place], [id number] Check In:02:42 PM ESTCheck O ut:03:46 PM EST Subjective: * Chief Complaints: * 1 . ER FU-Colitis, had bloody stool-was put on multiple ATBS, making nauseous- not feeling better- was not set up with GI. 2. dx with colon cancer 4 weeks ago. 3. Muscles cramping- happens randomly but more often now. 4. Urine dark colored. * HPI: G eneral: + FH colon cancer - checking at [facility] bloody diarreha - on AB _ stil with diarrhea - but has normal diarrhea also + CP, FLYNN and FH cad - + Smoker. G astroenteritis: The patient complains of s ymptoms of the stomach flu. The symptoms have been present for 1 -2 days. The symptoms are m oderate. The patient h as not been exposed to sick contacts. Symptomatic treatment has included O TC medication. Associated symptoms include a bdominal pain, diarrhea, stomach cramps, nausea, vomiting, chills, fever. * ROS: G eneral/Constitutional: Recent Weight Gain d enies. S kin: Rash d enies. C ardiovascular: Edema d enies. P alpitations d enies. � G astrointestinal: Comments S ee HPI for details. * Medical History: A nxiety and depression, Carpal tunnel syndrome on both sides, Cervical disc disease, Diabetes mellitus, Fibrocystic breast, Hypertension, Ovarian cyst, Palpitations, Tachycardia. * Surgical History: C HOLECYSTECTOMY , Lumbar Discectomy L4-L5 , Left L4-5 Transluminar epidural Inj- Dr. Amezcua 09/22/21. * Hospitalization/Major Diagno stic Procedure: D enies Past Hospitalization. * Family History: F ather: , stroke, diagnosed with Diabetes mellitus without mention of complication, type II or unspecified type, not stated as uncontrolled, Unspecified essential hypertension, Unspecified heart disease. M other: alive, macular degeneration. B pratibhaer(s): alive. S ister(s): , Juvenille DIabetes, Hypertension, Heart Disease, Lung Disease. D rebecca(s): alive.�1 brother(s) , 1 sister(s) . 2 daughter(s) . . * Medications: T aking amLODIPine Besylate 5 MG Tablet 1 tablet Orally Once a day , Taking Carvedilol 25 MG Tablet 1 tablet with food Orally Twice a day , Taking CeleXA(Citalopram Hydrobromide) 40 MG Tablet 1 tablet Orally Once a day , Taking Ciprofloxacin HCl 500 MG Tablet 1 tablet Orally every 12 hrs , Taking Cymbalta(DULoxetine HCl) 30 MG Capsule Delayed Release Particles 1 capsule Orally Once a day , Taking Diclofenac Sodium 75 MG Tablet Delayed Release 1 tablet as needed Orally Twice a day , Taking Ferrous Sulfate 325 (65 Fe) MG Tablet 1 tablet Orally twice daily , Taking Glimepiride 4 MG Tablet 1 tablet with breakfast or the first main meal of the day Orally Once a day , Taking Irbesartan 300 MG Tablet 1 tablet Orally Once a day , Taking metFORMIN HCl 500 MG Tablet 1 tablet Orally twice daily , Taking metroNIDAZOLE 500 MG Tablet 1 tablet Orally Three times a day , Taking Ventolin HFA(Albuterol Sulfate HFA) 108 (90 Base) MCG/ACT Aerosol Solution 2 puff as needed Inhalation every 4 hrs , Notes to Pharmacist: PRN, Discontinued predniSONE 20 MG Tablet 2 tablets Orally Once a day , Medication List reviewed and reconciled with the patient * Allergies: S ulfa Antibiotics: Allergy. Objective: * Vitals: W t:145.6lbs, Ht: 65 in, BP:124/70mm Hg, BMI:24.23Index, Ht-cm: 165.1 cm, Wt-k.04 kg. * Examination: G eneral Examination: GENERAL APPEARANCE: well developed, well nourished, in no acute distress. ENT: Normocephalic , Atraumatic. EYES: pupils equal, round, reactive to light and accomodations, sclera non-icteric. EARS: normal. ORAL CAVITY: mucosa moist. THROAT: clear. LUNGS: clear to auscultation bilaterally. CARDIO: regular rate and rhythm, S1, S2 normal, no murmurs. ABDOMEN: liver nontender, ___soft, no significant tenderness, liver, spleen not felt, no rebound, negative Mora's sign, no guarding or rigidity, no hepatosplenomegaly, no hernias present, no masses palpable, no rebound tenderness. SKIN: warm and dry, no suspicious lesions. EXTREMITIES: no clubbing, cyanosis, or edema. NEUROLOGIC: nonfocal, motor strength of upper/lower extremities intact , sensory exam intact. NECK/THYROID: neck supple, full range of motion, no cervical lymphadenopathy. Assessment: * Assessment: 1. D ark urine - R82.998 (Primary) 2 . C hest pain - R07.9 3 . G astroenteritis - K52.9 Plan: * Treatment: 2. C hest pain P rocedure: CARDIO Stress Test - Cardiolite 3. G astroenteritis Notes: Treating for colitis - needs repaet scope � Referral To:Jaylen Dias General Surgery Reason:Bloody diarrhea 4. O thers Notes: FLYNN and high cholesterol and FH CAD and + SMoker * Labs: * L ab: UA DIP NONAUTO WO MICRO (04628) - IN OFFICE (Collection Date & Time - 10/19/2024) Value Reference Range C OLOR dark yellow * C LARITY clear * G LUCOSE n * B ILIRUBIN n * K ETONE small * S PECIFIC GRAVITY 1.020 * B LOOD 50 * P H 5 * P ROTEIN trace * U ROBILINOGEN n * N ITRITE n * L EUKOCYTE ESTERASE n * Procedure Codes: 8 1002 URINALYSIS WO MICRO * Preventive Medicine: Screenings/Counseling: T OBACCO ACTION PLAN Patient counselled on the dangers of tobacco use and urged to quit. 0 10/19/2024 . * * Electronic signature of Kong Romero MD, [id number] on 10/22/2024 at 09:07 AM EDT Sign off status: Pending Visit Status: Karan HK (Check Out) * Provider: Bj Romero (TTC)MD Date: 0 10/19/2024 Generated for Kaila hernandez/Faavril/eTransmitting on: 0 10/22/2024 09:07 AM EDT History and Physical Notes * HPI (History of Present Illness) Category Sub-Category Detail Notes Category Not es General + FH colon cancer - checking at [facility] bloody diarreha - on AB _ stil with diarrhea - but has normal diarrhea also + CP, FLYNN and FH cad - + Smoker Gastroenteritis The patient complain s of symptoms of the stomach flu The symptoms have been present for 1-2 d ays The symptoms are moderate The patient has not been exposed to sick contacts Symptomatic treatment has included OTC m edication Associated symptoms include abdominal pa in, diarrhea, stomach cramps, nausea, vomiting, chills, fever Examination Category Sub-Category Detail Notes Category Not es General Examination GENERAL APPEARANCE: well dev eloped, well nourished, in no acute distress ENT: Normocephalic , Atra umatic EYES: pupils equal, round, reactive to light and accomodations, sclera non-icteric EARS: normal THROAT: clear CARDIO: regular rate and rhy thm, S1, S2 normal, no murmurs LUNGS: clear to auscultatio n bilaterally ABDOMEN: liver nontender, ___ soft, no significant tenderness, liver, spleen not felt, no rebound, negative Mora's sign, no guarding or rigidity, no hepatosplenomegaly, no hernias present, no masses palpable, no rebound tenderness NEUROLOGIC: nonfocal, motor stre ngth of upper/lower extremities intact , sensory exam intact SKIN: warm and dry, no jerry picious lesions EXTREMITIES: no clubbing, cyanosi s, or edema ORAL CAVITY: mucosa moist NECK/THYROID: neck supple, full ra nge of motion, no cervical lymphadenopathy Consultation Request Notes Referral Date Referring Provider Referred Provider Not es 10/19/2024 Kong Romero Michael Bloody diarrhe a
--- NOTE | 2024-10-22 08:00 | NM_ITS ---
Patient Name: JUAN ARMSTRONG MR#: [id number] : 1970 Exam Date: 10/22/2024 Ordering Doctor: DR ALO WALLIS . RADIOLOGY REPORT PROCEDURE: NM BAL PERF SPECT REST STR COMPARISON: None. INDICATIONS: CHEST PAIN, SHORTNESS OF BREATH TECHNIQUE: Exam Description: Stress/Rest one day protocol gated SPECT Rest Imagin.3 mCi Tc-99m Cardiolite IV on 10/22/2024 Stress Imaging 30.9 mCi Tc-99m Cardiolite IV on 10/22/2024 Exercise Protocol: Elton Heart Rate (bpm): Rest: 71 Max: 146 PMHR: 87 Blood Pressure: Rest: 128/78 Max: 140/86 Exercise Time: Minutes: 5 Seconds: 23 Stage Reached: Stage: 2 Mets 7.0 Symptoms: Rest and peak stress ECG findings were pending, and the exercise portion of the study was pending per attending physician [facility]. For more details, please see separate cardiac stress test report. FINDINGS: QUALITY OF STUDY: Good PERFUSION DEFECT: LOCATION: N/A SIZE: N/A SEVERITY: N/A TYPE: N/A WALL MOTION: Normal wall motion LV SIZE: 86 mL. TID / TCD: 1.0 LVEF: Calculated EF 65%. SUMMARY: Myocardial perfusion imaging study is normal CONCLUSION: 1. Myocardial perfusion is normal with soft tissue attenuation 2. Global left ventricular systolic function is normal 3. No evidence of transient ischemic dilatation Dictated by: Abhishek Keating M.D. on 10/22/2024 at 17:02 Approved by: Abhishek Keating M.D. on 10/22/2024 at 17:04
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
--- OUTSIDE RECORDS SUMMARY | 2024-10-22 09:07 | XMS_ITS | Clinical Summary ---
Author Organization [facility] Address [address] [place] [address] Phone Care Team Providers Care Director Of Institutional Sales Name Role Phone Unavailable Primary Care Provider [...]
--- OUTSIDE RECORDS SUMMARY | 2024-10-22 09:07 | XMS_ITS | Patient Health Record ---
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 Clinician Provided Cytology Information L-Low Normal,H-High Normal,LL-Alert Low,HH-Alert High Performed at: Age Algo ACOG Shanta... 30-65 01 FLAG LEGEND: No. of containers..01 ThinPrep Vial [address] [place] [address] <-Panic Low,>-Panic High,A-Abnormal,AA-Crit ical Abnormal 01 =[facility] [place] Candice Devries MD, TESTS RESULT FLAG UNITS REF RANGE LAB Source.............Cerv ix IGP, Aptima HPV, rfx 16/18,45 Note . Niya Jacome, Buggy Man (ASCP) <-Panic Low,>-Panic High,A-Abnormal,AA-Crit ical Abnormal Specimen adequacy: 02 Test Methodology: Note 02 The Pap smear is a screening test designed to aid in the should not be used as the sole means of detecting cervical Note: Note 02 uterine cervix. It is not a diagnostic procedure and occur. 02 [facility] [place] the use of an image guided system. [address] [place] [address] cancer. Both false-positive and false-negative reports do This liquid based ThinPrep(R) pap test was screened with TESTS RESULT FLAG UNITS REF RANGE LAB L-Low Normal,H-High Normal,LL-Alert Low,HH-Alert High Performed by: 02 NEGATIVE FOR INTRAEPITHELIAL LESION OR MALIGNANCY. Performed at: Criteria not met, HPV Genotype not performed. FLAG LEGEND: DIAGNOSIS: 02 HPV Genotype Reflex Note 02 Candice Devries MD, . 02 detection of premalignant and malignant conditions of the Satisfactory for evaluation. No endocervical component is identified. HPV Aptima Negative Negative [address] [facility], [place] [id number] [address] [place], [place] [id number] risk HPV types (16,18,31,33,35,39,45,5 1,52,56,58,59,66,68) Performed at: [facility] This nucleic acid amplification test detects fourteen high- without differentiation. Racetrack Steward: Candice Devries MD, Phone: [phone] Performed at: [facility] Racetrack Steward: Candice Devries MD, Phone: [phone] Performing Lab: see note [facility] CT lung screening low-dose Reviewed date:06/16/2024 04:11:04 PM Interpretation: Performing Lab: Notes/Report: Source Facility: [place] [address] CT Scan Report Signed Patient: RADHA KNIGHT MR#: [id number] : 1970 Acct:[id number] Age/Sex: 54 / F ADM Date: 06/16/24 Loc: CT Attending Dr: Alo Romero M.D. Ordering Physician: Alo Romero M.D. Date of Service: 06/16/24 Procedure(s): CT lung screening low-dose Accession Number(s): [id number] cc: Alo Romero M.D. [place] [address] Patient Name: RADHA KNIGHT MRN: [id number] date: 1970 Sex: F Assigned Patient Location: CT Current Patient Location: CT Accession/Order Number: [id number] Exam Date: 06/16/2024 11:20 Report Date: 06/16/2024 11:32 At the request of: ALO ROMERO MD Procedure: CT lung screening low-dose LOW-DOSE SCREENING CHEST CT WITHOUT CONTRAST COMPARISON: 06/13/2023 CLINICAL DATA: Current smoker with greater than 20 years of tobacco use. Cough. Spiral axial unenhanced low-dose images were obtained through the chest. Images were reviewed using both narrow and wide window settings. This CT exam was performed using one or more following dose reduction techniques: Automated exposure control, adjustment of the mA and/or kV according to patient size, or use of iterative reconstruction technique. The heart is within normal limits for size. No pericardial effusion is seen. There is coronary artery disease. No aortic aneurysm is identified. Minor atherosclerotic plaque is visualized at the aortic arch and proximal great vessels. Small scattered mediastinal lymph nodes are again seen. Degenerative changes are present at the spine. There is chronic deformity at the right third costovertebral junction. There is minimal atelectasis or scarring. No focal consolidation, pleural effusion or pneumothorax is identified. There are 3 tiny similar right upper lobe pulmonary nodules. No new nodularity is seen. Limited cuts through the upper abdomen again show calcifications within the liver. CT/CT lung screening low-dose IMPRESSION: STABLE TINY RIGHT UPPER LOBE PULMONARY NODULES. NO NEW NODULARITY. Lung RADS category 2 - benign Twelve-month low-dose CT follow-up suggested. Impression dictated by: Meche Gutierrez M.D.06/16/2024 11:32 AM Dictation Location: [place] [address] Electronically authenticated by: [id number] Y Date: 06/16/2024 11:32 Dictated By: Meche Gutierrez M.D. Signed By: 06/16/24 1135 DD/ 1132 TD/TT: Field Marketing Team Leader: [place] [address] CT Scan Report Signed Patient: GRAYSON KNIGHT MR#: [id number] : 1970 Acct:[id number] Age/Sex: 54 / F ADM Date: 06/16/24 Loc: CT Attending Dr: Eloina Romero M.D. Ordering Physician: Alo Romero M.D. Date of Service: 06/16/24 Procedure(s): CT ibeth g screening low-dose Accession Number(s): [id number] cc: Alo Romero M.D. [address] [address] Patient Name: RADHA KINGHT MRN: [id number] date: 1970 Sex: F Assigned Patient Location: CT Current Patient Location: CT Accession/Order Numb er: [id number] Exam Date: 06/16/2024 11:20 Report Date: 06/16/2024 11:32 At the request of: ALO ROMERO MD Procedure: CT lung screening low-dose LOW-DOSE SCREENING CHEST CT WITHOUT CONTRAST COMPARISON: 06/13/2023 CLINICAL DATA: Curre nt smoker with greater than 20 years of tobacco use. Cough. Spiral axial unenhan nav low-dose images were obtained through the chest. Images were reviewed using both narrow and wide window settings. This CT exam was performed using one or more following dose reduction techniques: Automated exposure control, adjustment of the mA and/or kV according to patient size, or use of iterative reconstruction technique. The heart is within normal limits for size. No pericardial effusion is seen. There is coronary artery disease. No aortic aneurysm is identified. Minor atherosclerotic plaq ue is visualized at the aortic arch and proximal great vessels. Small scattered mediastinal lymph nodes are again seen. Degenerative changes are present at the spine. There is chronic deformity at the right third costovertebral junction. There is minimal atelectasis or scarring. No focal consolidation, pleural effusion or pneumothorax is identified. There are 3 tiny similar right upper lobe pulmonary nodul es. No new nodularity is seen. Limited cuts through the upper abdomen again show calcifications within the liver. CT/CT lung screening low-dose IMPRESSION: STABLE TINY RIGHT UP PER LOBE PULMONARY NODULES. NO NEW NODULARITY. Lung RADS category 2 - benign Twelve-month low-dos e CT follow-up suggested. Impression dictated by: Meche Gutierrez M.D.06/16/2024 11:32 AM Dictation Location: [place] [address] Electronically authenticated by: [id number] Y Date: 06/16/2024 11:32 Dictated By: Meche Gutierrez M.D. Signed By: 06/16/24 1135 DD/ 1132 TD/TT: Field Marketing Team Leader: MM tomosynthesis screening Dominique I Reviewed date:06/16/2024 04:11:04 PM Interpretation: Performing Lab: Notes/Report: Source Facility: [place] [address] Mammography Report Signed Patient: RADHA KNIGHT MR#: [id number] : 1970 Acct:[id number] Age/Sex: 54 / F ADM Date: 06/16/24 Loc: CT Attending Dr: Alo Romero M.D. Ordering Physician: Alo Romero M.D. Results: Date of Service: 06/16/24 Follow Up: Procedure(s): MM tomosynthesis screening BI Accession Number(s): [id number] cc: Alo Romero M.D. Patient Name: RADHA KNIGHT MR#: [id number] : 1970 Exam Date: 06/16/2024 Ordering Doctor: DR Alo Romero . RADIOLOGY REPORT PROCEDURE: MM TOMOSYNTHESIS SCREENING BI COMPARISON: MG MAMM SCREEN ABDELRAHMAN W CAD, 11/10/2019. MG MAMM SCREEN ABDELRAHMAN W CAD, 04/01/2015. MG MAMM SCREEN ABDELRAHMAN W CAD, 03/20/2011. INDICATIONS: Screening Calculator Name NCI Breast Cancer Risk Assessment Tool 5 Year Breast Cancer Risk 1.00% Lifetime Breast Cancer Risk 7.50% Personal Breast Cancer No Personal Ovarian Cancer No Treatments None Family Cancers None LOCATION: [facility] BREAST COMPOSITION: There are scattered areas of fibroglandular density. FINDINGS: RIGHT BREAST: No significant suspicious finding. There are similar focal asymmetries. LEFT BREAST: No significant suspicious finding. There are similar focal asymmetries. DIAGNOSTIC CATEGORY 2--BENIGN FINDING. NO CHANGE FROM COMPARISON. RECOMMENDATIONS: ROUTINE MAMMOGRAM AND CLINICAL EVALUATION IN 12 MONTHS. PLEASE NOTE: A NORMAL MAMMOGRAM DOES NOT EXCLUDE THE POSSIBILITY OF BREAST CANCER. A CLINICALLY SUSPICIOUS PALPABLE LUMP SHOULD BE BIOPSIED. Dictated by: Олег Chandler MD on 06/16/2024 at 13:53 Approved by: Олег Chandler MD on 06/16/2024 at 14:03 Dictated By: Олег Chandler M.D. Signed By: 06/16/24 1404 DD/ 1404 TD/TT: Field Marketing Team Leader: [place] [address] Mammography Report Signed Patient: GRAYSON KNIGHT MR#: [id number] : 1970 Acct:[id number] Age/Sex: 54 / F ADM Date: 06/16/24 Loc: CT Attending Dr: Eloina Romero M.D. Ordering Physician: Alo Romero M.D. Results: Date of Service: 06/16/24 Follow Up: Procedure(s): MM tomosynthesis screening BI Accession Number(s): [id number] cc: Alo Romero M.D. Patient Name: RADHA KNIGHT MR#: [id number] : 1970 Exam Date: 06/16/2024 Ordering Doctor: DR Alo Romero . RADIOLOGY REPORT PROCEDURE: MM TOMOSYNTHESIS SCREENING BI COMPARISON: MG MAMM SCREEN ABDELRAHMAN W CAD, 11/10/2019. MG MAMM SCREEN ABDELRAHMAN W CAD, 04/01/2015. MG MAMM SCREEN ABDELRAHMAN W CAD, 03/20/2011. INDICATIONS: Screening Calculator Name NCI Breast Cancer Risk Assessment Tool 5 Year Breast Cancer Risk 1.00% Lifetime Breast Canc er Risk 7.50% Personal Breast Canc er No Personal Ovarian Can cer No Treatments None Family Cancers None LOCATION: [facility] BREAST COMPOSITION: There are scattered areas of fibroglandular density. FINDINGS: RIGHT BREAST: No significant suspicious finding. There are similar focal asymmetries. LEFT BREAST: No significant suspicious finding. There are similar focal asymmetries. DIAGNOSTIC CATEGORY 2--BENIGN FINDING. NO CHANGE FROM COMPARISON. RECOMMENDATIONS: ROUTINE MAMMOGRAM AN D CLINICAL EVALUATION IN 12 MONTHS. PLEASE NOTE: A SANTI L MAMMOGRAM DOES NOT EXCLUDE THE POSSIBILITY OF BREAST CANCER. A CLINICALLY SUSPICIOUS PALPABLE LUMP SHOULD BE BIOPSIED. Dictated by: Олег Chandler MD on 06/16/2024 at 13:53 Approved by: Олег Chandler MD on 06/16/2024 at 14:03 Dictated By: Олег Chandler M.D. Signed By: 06/16/24 1404 DD/ 03 TD/TT: Field Marketing Team Leader: cervical spine wo con Reviewed date:05/28/2024 12:51:16 PM Interpretation: Performing Lab: Notes/Report: Source Facility: [place] [address] Magnetic Resonance Report Signed Patient: RADHA KNIGHT MR#: [id number] : 1970 Acct:[id number] Age/Sex: 54 / F ADM Date: 05/27/24 Loc: MRI Attending Dr: Alo Romero M.D. Ordering Physician: Alo Romero M.D. Date of Service: 05/27/24 Procedure(s): MR cervical spine wo con Accession Number(s): [id number] cc: Alo Romero M.D. [place] [address] Patient Name: RADHA KNIGHT MRN: [id number] date: 1970 Sex: F Assigned Patient Location: MRI Current Patient Location: Accession/Order Number: [id number] Exam Date: 05/27/2024 13:35 Report Date: 05/28/2024 08:53 At the request of: ALO ROMERO Procedure: MR cervical spine wo con MR cervical spine wo con, 05/27/2024 1:35 PM EST INDICATION: Cervical Radiculopathy COMPARISON: X-ray of cervical spine dated 05/11/2024 TECHNIQUE: Multiplanar, multisequence MRI images of cervical spine were obtained without contrast. FINDINGS: There is normal physiologic cervical lordosis. The vertebral heights are relatively preserved. Anterior flowing osteophytes suggesting of diffuse idiopathic skeletal hyperostosis. The cervicomedullary junction is unremarkable. No definite signal abnormality within the spinal cord is noted. Grade 1 endplate changes at the level of T3-T4 are noted. There are mild disc osteophyte complex associated with uncovertebral joint arthrosis from C3 to T1 contributing to neuroforaminal and canal stenosis. At the level of C2-C3, there is no neuroforaminal narrowing or canal stenosis. At the level of C3-C4, there is no neuroforaminal narrowing and no canal stenosis. At the level of C4-C5, there is mild bilateral neuroforaminal narrowing and no canal stenosis. At the level of C5-C6, there is moderate bilateral neuroforaminal narrowing and mild canal stenosis. At the level of C6-C7, there is superimposed central protrusion with mild to moderate bilateral neuroforaminal narrowing and moderate central canal stenosis. Level of C7-T1 is unremarkable. No definite muscular or ligamentous injury is noted. MR/MR cervical spine wo con IMPRESSION: Mild degenerative changes of the cervical spine in particular at C5-C6 and C6-C7. Electronically authenticated by: BAYRON HURT Date: 05/28/2024 08:53 Dictated By: Bayron Hurt M.D. Signed By: 05/28/24 0856 DD/ TD/TT: Field Marketing Team Leader: [place] [address] Magnetic Resonance Report Signed Patient: GRAYSON KNIGHT MR#: [id number] : 1970 Acct:[id number] Age/Sex: 54 / F ADM Date: 05/27/24 Loc: MRI Attending Dr: Eloina Romero M.D. Ordering Physician: Alo Romero M.D. Date of Service: 05/27/24 Procedure(s): MR cervical spine wo con Accession Number(s): [id number] cc: Alo Romero M.D. [place] [address] Patient Name: RADHA KNIGHT MRN: [id number] date: 1970 Sex: F Assigned Patient Location: MRI Current Patient Location: Accession/Order Numb er: [id number] Exam Date: 05/27/2024 13:35 Report Date: 05/28/2024 08:53 At the request of: ALO ROMERO Procedure: MR cervic al spine wo con MR cervical spine wo con, 05/27/2024 1:35 PM EST INDICATION: Cervical Radiculopathy COMPARISON: X-ray of cervical spine dated 05/11/2024 TECHNIQUE: Multiplan ar, multisequence MRI images of cervical spine were obtained without contrast. FINDINGS: There is normal physiologic cervical lordosis. The vertebral heights are relatively preserved . Anterior flowing osteophytes suggesting of diffuse idiopathic skeletal hyperostosis. The cervicomedullary junction is unremarkable. No definite signal abnormality within the spinal cord is noted. Grade 1 endplate changes at the level of T3-T4 are noted. There are mild disc osteophyte complex associated with uncovertebral joint arthrosis from C3 to T1 contributing to neuroforaminal and canal stenosis. At the level of C2-C 3, there is no neuroforaminal narrowing or canal stenosis. At the level of C3-C 4, there is no neuroforaminal narrowing and no canal stenosis. At the level of C4-C 5, there is mild bilateral neuroforaminal narrowing and no canal stenosis. At the level of C5-C 6, there is moderate bilateral neuroforaminal narrowing and mild canal stenosis. At the level of C6-C 7, there is superimposed central protrusion with mild to moderate bilateral neuroforaminal narrowing and moderate central canal stenosis. Level of C7-T1 is unremarkable. No definite muscular or ligamentous injury is noted. MR/MR cervical spine wo con IMPRESSION: Mild degenerative changes of the cervical spine in particular at C5-C6 and C6-C7. Electronically authenticated by: BAYRON HURT Date: 05/28/2024 08:53 Dictated By: Bayron Hurt M.D. Signed By: 05/28/24 0856 DD/ 0853 TD/TT: Field Marketing Team Leader: TSH Reviewed date:03/02/2024 06:41:11 PM Interpretation: Performing Lab: Notes/Report: [facility] , Thyroid Stimulating Hormone 0.722 0.358-3.740 uIU/mL Performing Lab: see note - [facility] LB T4 Reviewed date:03/02/2024 06:41:11 PM Interpretation: Performing Lab: Notes/Report: [facility] , T4 Thyroxine 11.30 4.80-13.90 ug/dL Performing Lab: see note ML - [facility] LB PROF 14(COMP METB) Reviewed date:03/02/2024 06:41:11 PM Interpretation: Performing Lab: Notes/Report: [facility] , Sodium 140 136-145 mmol/L Potassium 4.3 3.5-5.1 mmol/L Chloride 104 98-107 mmol/L Carbon Dioxide 27.5 21.0-32.0 mmol/L Anion Gap 12.8 Glucose 86 74-106 mg/dL Blood Urea Nitrogen 10.0 7.0-18.0 mg/dL Creatinine 0.70 0.55-1.02 mg/dL Estimated GFR ( [place] >60 >=60 mL/min/1.73m 2 Estimated GFR (Non- Annie >60 >=60 mL/min/1.73m 2 BUN Creatinine Ratio 14.3 Calcium 9.5 8.5-10.1 mg/dL Bilirubin Total 0.5 0.2-1.0 mg/dL Aspartate Amino Transferase 25 15-37 U/L Alanine Aminotransferase 19 14-59 U/L Alkaline Phosphatase 56 46-116 U/L Total Protein 6.8 6.4-8.2 g/dL Albumin Level 3.5 3.4-5.0 g/dL Globulin 3.3 Albumin Globulin Ratio 1.1 Performing Lab: see note ML - [facility] LB LIPID PROFILE Reviewed date:03/02/2024 06:41:11 PM Interpretation: Performing Lab: Notes/Report: [facility] , Triglycerides 68 <=150 mg/dL Cholesterol 190 <=200 mg/dL HDL Cholesterol 72 40-60 mg/dL > or =60 mg/dl - LOW CARDIOVASCULAR RISK <40 mg/dl - HIGH CARDIOVASCULAR RISK LDL Cholesterol Calculated 105.0 100-129 mg/dl NEAR OR ABOVE OPTIMAL >190 mg/dl VERY HIGH 130-159 mg/dl BORDERLINE HIGH <100 mg/dl OPTIMAL 160-189 mg/dl HIGH VLDL CHOLESTEROL 13.6 Chol HDL Ratio 2.6 7.1 - 11.0 MODERATE RISK 3.3 - 4.4 LOW RISK >11.0 HIGH RISK 4.4 - 7.1 AVERAGE RISK Performing Lab: see note ML - [facility] LB IRON Reviewed date:03/02/2024 06:41:11 PM Interpretation: Performing Lab: Notes/Report: [facility] , Iron 80.0 50.0-170.0 ug/dL Performing Lab: see note ML - [facility] LB INSULIN Reviewed date:03/03/2024 06:36:46 PM Interpretation: Performing Lab: Notes/Report: [facility] , Insulin 7.8 2.6-24.9 uIU/mL [address] [place], [place] [phone] Performed at: [facility] Racetrack Steward: Bartolome Barrett PhD, Phone: [phone] Performing Lab: see note - [facility] LB GLYCOHEMOGLOBIN A1C Reviewed date:03/02/2024 06:41:11 PM Interpretation: Performing Lab: Notes/Report: [facility] , Glycohemoglobin A1C 5.5 4.5-6.2 % > 7.0 ADA RECOMMENDED LIMIT 4.0 - 6.0 ACTION SUGGESTED ADA THERAPEUTIC TARGET < 7.0 Estimated Average Glucose 111 Performing Lab: see note ML - [facility] LB FREE T3 Reviewed date:03/02/2024 06:41:11 PM Interpretation: Performing Lab: Notes/Report: [facility] , Free T3 2.61 2.18-3.98 pg/mL Performing Lab: see note ML - [facility] LB CBC AUTO DIFF Reviewed date:03/02/2024 06:41:11 PM Interpretation: Performing Lab: Notes/Report: [facility] , White Blood Count 8.3 4.0-11.0 10 3/uL Red Blood Count 4.85 4.20-5.40 10 6/uL Hemoglobin 15.2 12.0-16.0 g/dL Hematocrit 45.8 36.0-48.0 % Mean Corpuscular Volume 94.4 81.0-99.0 fL Mean Corpuscular Hemoglobin 31.3 26.7-34.0 pg Mean Corpuscular HGB Conc 33.2 29.9-35.2 g/dL Red Cell Distribution Width 14.6 11.0-15.0 % Platelet Count 206 150-450 10 3/uL Mean Platelet Volume 9.3 9.5-13.5 fL Neutrophils Percent Auto 54.7 43.0-75.0 % Lymphocytes Percent Auto 35.4 20.5-60.0 % Monocytes Percent Auto 6.5 1.7-12.0 % Eosinophils Percent Auto 2.6 0.9-7.0 % Basophils Percent Auto 0.6 0.2-2.0 % Immature Granulocytes Pct Auto 0.2 0.0-0.5 % Neutrophils Absolute Auto 4.5 1.4-6.5 10 3/uL Lymphocytes Absolute Auto 2.9 1.2-3.8 10 3/uL Monocytes Absolute Auto 0.5 0.3-0.8 10 3/uL Eosinophils Absolute Auto 0.2 0.0-0.7 10 3/uL Basophils Absolute Auto 0.1 0.0-0.1 10 3/uL Immature Granulocytes Abs Auto 0.02 0.00-0.03 10 3/uL Performing Lab: see note ML - [facility] LB XR cervical spine 2-3V Reviewed date:05/20/2024 08:53:14 PM Interpretation: Performing Lab: Notes/Report: Source Facility: [place] [address] [place] [address] XRay Report Signed Patient: RADHA KNIGHT MR#: [id number] : 1970 Acct:[id number] Age/Sex: 54 / F ADM Date: 05/19/24 Loc: RAD Attending Dr: Alo Romero M.D. Ordering Physician: Alo Romero M.D. Date of Service: 05/19/24 Procedure(s): XR cervical spine 2-3V Accession Number(s): [id number] cc: Alo Romero M.D. [place] [address] Patient Name: RADHA KNIGHT MRN: [id number] date: 1970 Sex: F Assigned Patient Location: [facility] Current Patient Location: Accession/Order Number: [id number] Exam Date: 05/19/2024 09:35 Report Date: 05/20/2024 08:52 At the request of: ALO ROMERO Procedure: XR cervical spine 2-3V EXAMINATION: XR cervical spine 2-3V HISTORY: Cervical Radiculopathy ; chronic bilateral hand tingling and numbness COMPARISON: No relevant comparison available. FINDINGS: BONES: Mild degenerative facet arthropathy of lower cervical spine. Uncovertebral joint spurring seen on the frontal projection likely encroaching on the neural foramen. Large bridging osteophytes along the anterior margins of the vertebral bodies. DISC SPACES: Mild narrowing C6-7. PARASPINOUS: Negative. No paraspinous abnormality is seen. OTHER: Negative. XR/XR cervical spine 2-3V IMPRESSION: 1. Mild degenerative changes of the cervical spine. Consider MRI if symptoms persist. Electronically authenticated by: YAYA BARBA Date: 05/20/2024 08:52 Dictated By: Yaya Barba M.D. Signed By: 05/20/2454 DD/ 1 TD/TT: Field Marketing Team Leader: [place] [address] XRay Report Signed Patient: GRAYSON KNIGHT MR#: [id number] : 1970 Acct:[id number] Age/Sex: 54 / F ADM Date: 05/19/24 Loc: RAD Attending Dr: Eloina Romero M.D. Ordering Physician: Alo Romero M.D. Date of Service: 05/19/24 Procedure(s): XR cervical spine 2-3V Accession Number(s): [id number] cc: Alo Romero M.D. [place] [address] Patient Name: RADHA KNIGHT MRN: [id number] date: 1970 Sex: F Assigned Patient Location: [facility] Current Patient Location: Accession/Order Numb er: [id number] Exam Date: 05/19/2024 09:35 Report Date: 05/20/2024 08:52 At the request of: ALO ROMERO Procedure: XR cervic al spine 2-3V EXAMINATION: XR cervical spine 2-3V HISTORY: Cervical Radiculopathy ; chronic bilateral hand tingling and numbness COMPARISON: No relev ant comparison available. FINDINGS: BONES: Mild degenerative facet arthropathy of lower cervical spine. Uncovertebral joint spurring seen on the frontal projection likely encroaching on the neural forame n. Large bridging osteophytes along the anterior margins of the vertebral bodies. DISC SPACES: Mild narrowing C6-7. PARASPINOUS: Negativ e. No paraspinous abnormality is seen. OTHER: Negative. XR/XR cervical spine 2-3V IMPRESSION: 1. Mild degenerative changes of the cervical spine. Consider MRI if symptoms persist. Electronically authenticated by: YAYA BARBA Date: 05/20/2024 08:52 Dictated By: Yaya Barba M.D. Signed By: 05/20/24 0854 DD/ TD/TT: Field Marketing Team Leader: CT abdomen pelvis w con Reviewed date:10/14/2024 09:12:13 PM Interpretation: Performing Lab: Notes/Report: Source Facility: [place] [address] CT Scan Report Signed Patient: RADHA KNIGHT MR#: [id number] : 1970 Acct:[id number] Age/Sex: 54 / F ADM Date: 10/14/24 Loc: ER Attending Dr: Ordering Physician: Leroy Armenta M.D. Date of Service: 10/14/24 Procedure(s): CT abdomen pelvis w con Accession Number(s): [id number] cc: Alo Romero M.D. [place] [address] Patient Name: RADHA KNIGHT MRN: [id number] date: 1970 Sex: F Assigned Patient Location: ER Current Patient Location: ER Accession/Order Number: [id number] Exam Date: 10/14/2024 12:50 Report Date: 10/14/2024 12:57 At the request of: LEROY ARMENTA MD Procedure: CT abdomen pelvis w con CT abdomen pelvis w con 10/14/2024 12:17 PM SIGNS AND SYMPTOMS: Lower abdominal cramping with blood in stools TECHNIQUE: Multidetector ct axial images of the abdomen and pelvis were obtained without IV contrast. Multiplanar reformats were performed and reviewed to further define anatomy and possible pathology. CT was performed with one or more of the following dose reduction techniques: Automated exposure control, adjustment of the mA and/or kV according to patient size, or use of iterative reconstruction technique. COMPARISON: 03/24/2023 FINDINGS: Lower Chest: Atherosclerotic changes are noted in the coronary arteries. ABDOMEN: Liver: There is a calcified granuloma in the left hepatic lobe. Bile Ducts: Normal caliber. Gallbladder: Previously removed Pancreas: Within normal limits. Spleen: Within normal limits. Adrenals: Within normal limits. Kidneys: Within normal limits. Pelvis: Reproductive Organs: No pelvic masses. Ureters: Within normal limits. Bladder: Within normal limits. Bowel: There is wall thickening with adjacent fat stranding involving the colon, greatest in the transverse through sigmoid colon suspicious for colitis which may be infectious or inflammatory. There is a normal appendix in the right lower quadrant. There is no bowel obstruction. Mesenteric Lymph Nodes: No enlarged mesenteric lymph nodes. Peritoneum: No ascites or free air, no fluid collection. Vessels: Atherosclerotic changes are noted in the abdominal aorta and its branches. Retroperitoneum: Within normal limits. Abdominal Wall: Within normal limits. Bones: Degenerative changes are noted in the thoracolumbar spine as well as the hips and sacroiliac joints. There is enthesophyte formation over the iliac wings and greater trochanters. CT/CT abdomen pelvis w con IMPRESSION: There is wall thickening with adjacent fat stranding involving the colon, greatest in the transverse through sigmoid colon suspicious for colitis which may be infectious or inflammatory. No bowel obstruction or obstructive uropathy. Impression dictated by: Олег Chandler M.D. 10/14/2024 12:57 PM Dictation Location: [place] [address] Electronically authenticated by: [id number] Y Date: 10/14/2024 12:57 Dictated By: Олег Chandler M.D. Signed By: 10/14/24 1259 DD/ 1257 TD/TT: Field Marketing Team Leader: [place] [id number] CT Scan Report Signed Patient: GRAYSON KNIGHT MR#: [id number] : 1970 Acct:[id number] Age/Sex: 54 / F ADM Date: 10/14/24 Loc: ER Attending Dr: Ordering Physician: Leroy Armenta M.D. Date of Service: 10/14/24 Procedure(s): CT abdomen pelvis w con Accession Number(s): [id number] cc: Alo Romero M.D. [address] [address] Patient Name: RADHA KNIGHT MRN: [facility]:[id number] date: 1970 Sex: F Assigned Patient Location: ER Current Patient Location: ER Accession/Order Numb er: [id number] Exam Date: 10/14/2024 12:50 Report Date: 10/14/2024 12:57 At the request of: LEROY ARMENTA MD Procedure: CT abdome n pelvis w con CT abdomen pelvis w con 10/14/2024 12:17 PM SIGNS AND SYMPTOMS: Lower abdominal cramping with blood in stools TECHNIQUE: Multidetector ct axial images of the abdomen and pelvis were obtained without IV contrast. Multiplanar reformats were performed and reviewed to further define anatomy and possible pathology. CT was performed with one or more of the following dose reduction techniques: Automated exposure control, adjustment of the mA and/or kV according to patient size, or use of iterative reconstruction technique. COMPARISON: 03/24/2023 FINDINGS: Lower Chest: Atherosclerotic changes are noted in the coronary arteries. ABDOMEN: Liver: There is a calcified granuloma in the left hepatic lobe. Bile Ducts: Normal caliber. Gallbladder: Previou sly removed Pancreas: Within nor mal limits. Spleen: Within santi l limits. Adrenals: Within nor mal limits. Kidneys: Within norm al limits. Pelvis: Reproductive Organs: No pelvic masses. Ureters: Within norm al limits. Bladder: Within norm al limits. Bowel: There is wall thickening with adjacent fat stranding involving the colon, greatest in t he transverse through sigmoid colon suspicious for colitis which may be infecti ous or inflammatory. There is a normal appendix in the right lower quadrant . There is no bowel obstruction. Mesenteric Lymph Nod es: No enlarged mesenteric lymph nodes. Peritoneum: No ascit es or free air, no fluid collection. Vessels: Atherosclerotic changes are noted in the abdominal aorta and its branches. Retroperitoneum: Wit hin normal limits. Abdominal Wall: With in normal limits. Bones: Degenerative changes are noted in the thoracolumbar spine as well as the hips and sacroil iac joints. There is enthesophyte formation over the iliac wings and grea ter trochanters. CT/CT abdomen pelvis w con IMPRESSION: There is wall thickening with adjacent fat stranding involving the colon, greatest in the transverse through sigmoid colon suspicious for colitis which may be infectious or inflammatory. No bowel obstruction or obstructive uropathy. Impression dictated by: Олег Chandler M.D. 10/14/2024 12:57 PM Dictation Location: [place] [address] Electronically authenticated by: [id number] Y Date: 10/14/2024 12:57 Dictated By: Олег Chandler M.D. Signed By: 10/14/24 1259 DD/ 1257 TD/TT: Field Marketing Team Leader: PROF LEATHA Morgan ([facility]) Reviewed date:10/14/2024 09:12:13 PM Interpretation: Performing Lab: Notes/Report: [facility] , Sodium 135 136-145 mmol/L Potassium 5.0 3.5-5.1 mmol/L Chloride 100 98-107 mmol/L Carbon Dioxide 28.6 21.0-32.0 mmol/L Anion Gap 11.4 Glucose 93 74-106 mg/dL Blood Urea Nitrogen 18.0 7.0-18.0 mg/dL Creatinine 0.82 0.55-1.02 mg/dL Estimated GFR ( [place] >60 >=60 mL/min/1.73m 2 Estimated GFR (Non- [place] >60 >=60 mL/min/1.73m 2 BUN Creatinine Ratio 22.0 Calcium 8.5 8.5-10.1 mg/dL Performing Lab: see note ML - [facility] LB LIVER PROFILE Reviewed date:10/14/2024 09:12:13 PM Interpretation: Performing Lab: Notes/Report: [facility] , Bilirubin Total 0.4 0.2-1.0 mg/dL Bilirubin Direct 0.1 0.0-0.2 mg/dL Aspartate Amino Transferase 23 15-37 U/L Alanine Aminotransferase 27 14-59 U/L Alkaline Phosphatase 65 46-116 U/L Total Protein 6.9 6.4-8.2 g/dL Albumin Level 3.5 3.4-5.0 g/dL Globulin 3.4 Albumin Globulin Ratio 1.0 Performing Lab: see note ML - [facility] LB LIPASE Reviewed date:10/14/2024 09:12:13 PM Interpretation: Performing Lab: Notes/Report: [facility] , Lipase 37.0 16.0-77.0 U/L Performing Lab: see note ML - [facility] LB CBC AUTO DIFF Reviewed date:10/14/2024 09:12:13 PM Interpretation: Performing Lab: Notes/Report: [facility] , White Blood Count 6.8 4.0-11.0 10 3/uL Red Blood Count 4.80 4.20-5.40 10 6/uL Hemoglobin 15.5 12.0-16.0 g/dL Hematocrit 45.3 36.0-48.0 % Mean Corpuscular Volume 94.4 81.0-99.0 fL Mean Corpuscular Hemoglobin 32.3 26.7-34.0 pg Mean Corpuscular HGB Conc 34.2 29.9-35.2 g/dL Red Cell Distribution Width 14.4 11.0-15.0 % Platelet Count 204 150-450 10 3/uL Mean Platelet Volume 9.4 9.5-13.5 fL Neutrophils Percent Auto 56.6 43.0-75.0 % Lymphocytes Percent Auto 31.1 20.5-60.0 % Monocytes Percent Auto 8.7 1.7-12.0 % Eosinophils Percent Auto 2.8 0.9-7.0 % Basophils Percent Auto 0.7 0.2-2.0 % Immature Granulocytes Pct Auto 0.1 0.0-0.5 % Neutrophils Absolute Auto 3.8 1.4-6.5 10 3/uL Lymphocytes Absolute Auto 2.1 1.2-3.8 10 3/uL Monocytes Absolute Auto 0.6 0.3-0.8 10 3/uL Eosinophils Absolute Auto 0.2 0.0-0.7 10 3/uL Basophils Absolute Auto 0.1 0.0-0.1 10 3/uL Immature Granulocytes Abs Auto 0.01 0.00-0.03 10 3/uL Performing Lab: see note ML - [facility] LB AMYLASE Reviewed date:10/14/2024 09:12:13 PM Interpretation: Performing Lab: Notes/Report: [facility] , Amylase 89 25-115 U/L Performing Lab: see note ML - [facility] LB Reason For Referral Diagnosis 1 Cervical radiculopat hy (M54.12) Referral Organization [facility] Referring Provider First Name Kong Referring Provider Last Name Heather Referring Provider Speciality [facility] paulina Referred Provider [facility], Physical Therap y Referred Provider Specialty Physical The rapist Referral Priority Routine Reason Bloody diarrhea Diagnosis 1 Gastroenteritis (K52 .9) Referral Organization [facility] Referring Provider First Name Kong Referring Provider Last Name Heather Referring Provider [facility] Referred Provider Jaylen Dias Referred Provider Specialty General Surg momo Referral Priority Routine Medications Medication SIG (Take, Route, Frequency, Duration) Notes Start Date End Date Status Diclofenac Sodium 75 MG 1 tablet as need ed Orally Twice a day for 30 days 05/18/2024 Active Cymbalta 30 MG 1 capsule Orally Onc e a day for 90 days 02/27/2024 Active Ciprofloxacin HCl 500 MG 1 tablet Orally every 12 hrs 10/19/2024 Active CeleXA 40 MG 1 tablet Orally Once a day for 30 01/07/2023 Active Carvedilol 25 MG 1 tablet with food Orally Twice a day for 90 days Active amLODIPine Besylate 5 MG 1 tablet Orally Once a day for 30 days 04/23/2024 Active Ventolin HFA 108 (90 Base) MCG/ACT 2 puff as needed Inhalation every 4 hrs for 30 PRN 05/10/2023 Active metroNIDAZOLE 500 MG 1 tablet Orally Thr ee times a day 10/19/2024 Active metFORMIN HCl 500 MG 1 tablet Orally twi ce daily for 90 days Active Irbesartan 300 MG 1 tablet Orally Once a day for 90 days Active Glimepiride 4 MG 1 tablet with breakf ast or the first main meal of the day Orally Once a day for 90 days Active Ferrous Sulfate 325 (65 Fe) MG 1 tablet Orally twice daily for 90 days Active Social History Tobacco Use: Social History Observation Description Date Details (start date - stop date) Current Smoker 04/22/1983 - NA Tobacco Use/Smoking Question Answer Notes Patient is a current smoker When did you start smoking? 04/22/1983 How often do you smoke cigarettes? every day How many cigarettes a day do you smoke? 11-20 Alcohol Screen (Audit-C) Question Answer Notes Did you have a drink contain ing alcohol in the past year? Yes How often did you have a dri nk containing alcohol in the past year? Less than monthly (1 point) Points 1 Interpretation Negative AUDIT-C (Standard) Question Answer Notes Did you have a drink contain ing alcohol in the past year? Yes How often did you have six o r more drinks on one occasion in the past year? Never (0 point) How many drinks did you have on a typical day when you were drinking in the past year? 3 or 4 drinks (1 point) How often did you have a dri nk containing alcohol in the past year? Monthly or less (1 point) Points 2 Interpretation Negative Problems Problem Type SNOMED Code ICD Code Onset Dates Problem Status W/U Status Risk Notes Problem Abdominal pain (18574409) Abdominal pain (R10.9) Active confirmed Problem Hypertension (06989046) Hypertension (I10) Active confirmed Problem Cervical radiculopathy (59067072) Cervical radiculopathy (M54.12) Active confirmed Problem Well adult (211116443) Well adult (Z00.00) Active confirmed Problem Acute bronchiolitis (9564358) Acute bronchiolitis (J21.9) Active confirmed Problem Type II diabetes mellitus without complication (372650968) Diabetes (E11.9) Active confirmed Vital Signs Blood pressure diastolic 70 mm Hg 10/19/2024 Height 65 in 10/19/2024 Blood pressure systolic 124 mm Hg 10/19/2024 Weight 145.6 lbs 10/19/2024 BMI 24.23 kg/m2 10/19/2024 Procedures Procedure Date Ordered Date Performed Result Body Sit e CARDIO Stress Test - Cardiolite 10/19/2024 N/A Encounters Encounter Location Date Provider Diagnosis [facility] [address] [place] [address] 09/10/2024 Kong Romero [facility] [address] [place] [address] 05/18/2024 Kong Romero [facility] [address] [place] [address] 05/19/2024 Kong Romero [facility] [address] [place] [address] 05/20/2024 Kong Hoy Cervical radiculopat hy M54.12 [facility] [address] [facility] [address] 05/26/2024 Kong Romero [facility] [address] [facility] [address] 05/28/2024 Kong jolynn [facility] [address] [facility] [address] 06/16/2024 Kong Harrisjolynn [facility] [address] [facility] [address] 03/27/2024 Kong Hoy Hypertension I10 [facility] [address] [facility] [address] 03/30/2024 Any Jose [facility] [address] [facility] [address] 04/13/2024 Kong Romero [facility] [address] [facility] [address] 04/23/2024 Kong Romero [facility] [address] [facility] [address] 05/05/2024 Kong Hoy Hypertension I10 [facility] [address] [facility] [address] 05/14/2024 Kong Harrisy [facility] [address] [facility] [place] [address] 01/23/2024 Kong Hoy Well adult Z00.00 [facility] [address] [facility] [address] 02/18/2024 Kong Harrisy [facility] [address] [facility] [address] 03/02/2024 Kong Romero [facility] [address] [facility] [address] 10/19/2024 Kong Hoy Dark urine R82.998 ; Gastroenteritis K52.9 and Chest pain R07.9 [facility] [address] [facility] [address] 02/27/2024 Kogn Hoy Hypertension I10 ; Diabetes E11.9 and Well adult Z00.00 [facility] [address] [place] [address] 05/18/2024 Kong Romero Cervical radiculopat hy M54.12 [facility] [address] [place] [address] 03/24/2024 Any Garcia Hypertension I10 and Encounter for annual routine gynecological examination Z01.419 Assessments Encounter Date Diagnosis (ICD Code) Assessment Notes Treatment Notes Treatment Clinical Notes Section Notes 02/27/2024 Hypertension (ICD-10 - I10) 02/27/2024 Diabetes (ICD-10 - E11.9) 03/24/2024 Hypertension (ICD-10 - I10) BP check 2 weeks 03/24/2024 Encounter for annual routine gynecological examination (ICD-10 - Z01.419) pap obtained pt tolerated well 05/18/2024 Cervical radiculopathy (ICD-10 - M54.12) 10/19/2024 Dark urine (ICD-10 - R82.998) 01/23/2024 Well adult (ICD-10 - Z00.00) 03/27/2024 Hypertension (ICD-10 - I10) 05/05/2024 Hypertension (ICD-10 - I10) 05/20/2024 Cervical radiculopathy (ICD-10 - M54.12) 10/19/2024 Gastroenteritis (ICD-10 - K52.9) Treating for colitis - needs repaet scope 10/19/2024 Chest pain (ICD-10 - R07.9) 02/27/2024 Well adult (ICD-10 - Z00.00) 10/19/2024 Other FLYNN and high cholesterol and FH CAD and + SMoker Plan Of Treatment Pending Test Test Name Order Date CMP (COMPLETE METABOLIC PANEL) 4 CMP (COMPLETE METABOLIC PANEL) 4 HEMOGLOBIN A1C (GLYCO) 05/08/2023 HEMOGLOBIN A1C (GLYCO) 02/27/2024 IRON, TOTAL 02/27/2024 LIPID PANEL (CHOL/TRIG/HDL/LDL) 05/08/19 24 LIPID PANEL (CHOL/TRIG/HDL/LDL) 02/27/20 24 CBC WITH DIFF 02/27/2024 CBC WITH DIFF 05/08/2023 CARDIO Stress Test - Cardiolite 10/20/19 25 UA DIP NONAUTO WO MICRO (70353) - IN OFF ICE 10/19/2024 Insulin Level 02/27/2024 CT Chest Low Dose for Screening* 024 STOOL OCCULT BLOOD 05/08/2023 MRI CSPINE WO CON 05/20/2024 THYROID PANEL (T4/TSH/FREE T3) 4 THYROID PANEL (T4/TSH/FREE T3) 4 MM screening mammo BI 02/27/2024 CT CHEST LOW DOSE (LDCT) 02/27/2024 Insurance Providers Payer Name Payer Address Payer Phone Subscriber Number Group Number Insured Name Patient Relationship to Insured Coverage Start Date Coverage End Date [facility] [employer]IC[employer] [address] [address] [place] [phone] [id number] Radha Knight Self - patient is the insured Medications Administered Medication Instructions Date of Administration Dosage Notes Kenalog-40 05/08/2023 120 mg 120 Medical (General) History Medical History History ICD Code Anxiety and depression F41.9 Carpal tunnel syndrome on both sides G56 .03 Cervical disc disease M50.90 Diabetes mellitus E11.9 Fibrocystic breast N60.19 Hypertension I10 Ovarian cyst N83.209 Palpitations R00.2 Tachycardia R00.0 Surgical History Surgery Date(Month/Year) CHOLECYSTECTOMY Lumbar Discectomy L4-L5 Left L4-5 Transluminar epidural Inj- Dr. Amezcua 09/22/21
--- OUTSIDE RECORDS SUMMARY | 2024-10-22 09:08 | XMS_ITS | Clinical Summary ---
[facility] Address [id number] [address] [place] [address] Care Team Providers Care Local Telephone Operator Name Role Phone Unavailable Primary Care [...]
--- OUTSIDE RECORDS SUMMARY | 2024-10-22 09:08 | XMS_ITS | Clinical Summary ---
Author Organization [facility] Address [address] [place] [address] Care Team Providers Care Line Assigner Name Role Phone Unavailable Primary Care Provider [...]
--- OUTSIDE RECORDS SUMMARY | 2024-10-22 09:23 | XMS_ITS | CCD ---
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 Role Phone Alo Romero Primary Care Provider [employer] [facility] [place] Consulting Radhika vailable EAN DELGDAO Attending Unavailab le ALO ROMERO Primary Care [...] Attending Unavailable HOY, DR PRAJAPATI Consulting Unavailable LAURENY, [...] Facility (1 source) Aspirin Drug Allergy [facility] (2 sources) Sulfamethoxazole / Trimethoprim Drug Allergy 03-20-20 16 [facility] (1 source) Sulfonamides (Antibiotic) Drug allergy (disorder) 11-24-19 21 [facility] (1 source) Aspirin Drug Allergy shortness of breath [facility] [employer] Other (1 source) Sulf-10 Drug allergy Unknown [employer] [facility] [employer] Other Medications Current Medications Medication Drug Class(es) Dates Sig (Normalized) Sig (Original) [id number] 200 actuat albuterol 0.09 mg/actuat metered dose [...] Onset: 06-13-2021 Episodic Other aftercare (1 source) senior care (current) use of oral hypoglycemic drugs; Translations: [CUSTODIAL USE ORAL 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 DX] Onset: 01-06-2021 Episodic [...] by Marty Esteves on 04/18/2022 1143 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 SARS-CoV-2 (COVID-19) RNA FANNY+probe Ql (Unsp spec) Negative [employer] Other COVID/FLU RT-PCR Positive [email or web address] Other COVID/FLU RT-PCR Negative [email or web address] Other XR Hip 1 View Right w/ Pelvi son 01-02-2022 XR Hip 1 View Right w/ Pelvis HISTORY: Please see the left hip x-ray report from this same date Report reported and signed by Marty Esteves on 01/02/2022 1047 Normal [facility] XR Hip Complete Left*on 12-21 XR Hip [...] by Marty Esteves on 01/02/2022 1048 Normal [facility] Specialist Physician Referralon 022 Physician Referral [id number]:127 Normal [facility] PROF CHEM 8 (BAS METB)on Anion gap [Moles/Vol] 9.9 mmol/L Normal [facility] Comment on above: Performed By: #### B MP #### [facility] [address] [place] [address] Dr. Jonatan Mancilla Calcium [Mass/Vol] 8.8 mg/dL Normal 8.5-10.1 [facility] Comment on above: Performed By: #### B MP #### [facility] [address] [address] [address] Jonatan Mancilla Chloride [Moles/Vol] 105 mmol/L Normal 98-107 [facility] Comment on above: Performed By: #### B MP #### [facility] [address] [address] [address] Jonatan Mancilla CO2 [Moles/Vol] 28.4 mmol/L Normal 21.0-32.0 [facility] Comment on above: Performed By: #### B MP #### [facility] [address] [address] [address] Jonatan Mancilla Creatinine [Mass/Vol] 0.76 mg/dL Normal 0.55-1.02 [facility] Comment on above: Performed By: #### B MP #### [facility] [address] [address] [address] Jonatan Mancilla EGFR-AF CYPRIOT >60 Normal >=60 [facility] Comment on above: Performed By: #### B MP #### [facility] [address] [address] [address] Jonatan Mancilla EGFR-NON AF CYPRIOT >60 Normal >=60 [facility] Comment on above: Performed By: #### B MP #### [facility] [address] [address] [address] Jonatan Mancilla Glucose [Mass/Vol] 147 mg/dL Critically high 74-106 [facility] Comment on above: Performed By: #### B MP #### [facility] [address] [address] [address] Jonatan Mancilla Potassium [Moles/Vol] 4.3 mmol/L Normal 3.5-5.1 [facility] Comment on above: Performed By: #### B MP #### [facility] [address] [place] [address] Dr. Jonatan Mancilla Sodium [Moles/Vol] 139 mmol/L Normal 136-145 [facility] Comment on above: Performed By: #### B MP #### [facility] [address] [address] [address] Jonatan Mancilla Urea nitrogen [Mass/Vol] 17.0 mg/dL Normal 7.0-18.0 [facility] Comment on above: Performed By: #### B MP #### [facility] [address] [address] [address] Jonatan Mancilla Urea nitrogen/Creatinine [Mass ratio] 22.4 mg/mg Normal [facility] Comment on above: Performed By: #### B MP #### [facility] [address] [place], [place] [address] Dr. Jontaan Mancilla GLUCOSE METERon 09-22-2021 Glucose [Mass/Vol] 136 mg/dL High 70-99 [facility] Comment on above: Result Comment: Fast ing GLUCOSE reference range has been updated per (ADA) [place] [employer] Association's recommendation. 07/15/2018 Performed By: #### L [id number] #### Test performed at: [address] [address] OPERATIVE REPORTon OPERATIVE REPORT NAME: RADHA KNIGHT MR#: [id number] SURGEON: Carlos Garcia MD DATE OF SURGERY: [...] There were no complications. CARLOS GARCIA MD JFRaysa/MIGUEL/[id number] E/S: Carlos Garcia MD 10/04/21 1121 Electronically Signed [facility] PT NAME: RADHA KNIGHT MR#: [id number] [address] [id number] ACCT: [id number] : 70 OPERATIVE REPORT Normal [facility] [place] WO CONon 08-12-19 MRI [facility] WO CON EXAM: MRI scan [...] by: Leidy DELGADO Date: 2021-08-11 16:12 Normal [facility] XR LSPINE MIN 4 VIEWSon [...] by: DOREEN LIVE Date: 2021-07-17 09:40 Normal [facility] INSULINon 06-10-2021 Insulin 13.0 uIU/mL Normal 2.6-24.9 [facility] Comment on above: Performed By: #### B MP #### [facility] [address] [place] [address] Dr. Jonatan Mancilla BNPon 06-09-2021 Natriuretic peptide B (Bld) [Mass/Vol] 86.0 pg/mL Normal <=900.0 [facility] Comment on above: Performed By: #### B MP #### [facility] [address] [place] [address] Dr. Jonatan Mancilla CBC AUTO DIFFon 06-09-2021 BASO # 0.0 103/ul Normal 0.0-0.1 [facility] Comment on above: Performed By: #### B MP #### [facility] [address] [place] [address] Dr. Jonatan Mancilla Basophils/100 WBC (Bld) 0.3 % Normal 0.2-2.0 [facility] Comment on above: Performed By: #### B MP #### [facility] [address] [place] [address] Dr. Jonatan Mancilla EO # 0.3 103/ul Normal 0.0-0.7 [facility] Comment on above: Performed By: #### B MP #### [facility] [address] [place] [address] Dr. Jonatan Mancilla Eosinophils/100 WBC (Bld) 3.7 % Normal 0.9-7.0 [facility] Comment on above: Performed By: #### B MP #### [facility] [address] [place] [address] Dr. Jonatan Mancilla Erythrocyte distribution width (RBC) [Ratio] 15.4 % Critically high 11.0-15.0 [facility] Comment on above: Performed By: #### B MP #### [facility] [address] [place] [address] Dr. Jonatan Mancilla Hematocrit (Bld) [Volume fraction] 44.9 % Normal 36.0-48.0 [facility] Comment on above: Performed By: #### B MP #### [facility] [address] [place] [address] Dr. Jonatan Mancilla Hemoglobin (Bld) [Mass/Vol] 14.7 g/dL Normal 12.0-16.0 [facility] Comment on above: Performed By: #### B MP #### [facility] [address] [place] [address] Dr. Jonatan Mancilla IG # 0.02 10e3/ul Normal 0.00-0.03 [facility] Comment on above: Performed By: #### B MP #### [facility] [address] [place] [address] Dr. Jonatan Mancilla IG % 0.3 % Normal 0.0-0.5 [facility] Comment on above: Performed By: #### B MP #### [facility] [address] [place] [address] Dr. Jonatan Mancilla LYMPH # 2.9 103/ul Normal 1.2-3.8 [facility] Comment on above: Performed By: #### B MP #### [facility] [address] [place] [address] Dr. Jonatan Mancilla Lymphocytes/100 WBC (Bld) 43.3 % Normal 20.5-60.0 [facility] Comment on above: Performed By: #### B MP #### [facility] [address] [place] [address] Dr. Jonatan Mancilla MANUAL DIFF REQ NO Normal [facility] Comment on above: Performed By: #### B MP #### [facility] [address] [place] [address] Dr. Jonatan Mancilla MCH (RBC) [Entitic mass] 29.7 pg Normal 26.7-34.0 [facility] Comment on above: Performed By: #### B MP #### [facility] [address] [place] [address] Dr. Jonatan Mancilla MCHC (RBC) [Mass/Vol] 32.7 g/dL Normal 29.9-35.2 [facility] Comment on above: Performed By: #### B MP #### [facility] [address] [place] [address] Dr. Jonatan Mancilla MCV (RBC) [Entitic vol] 90.7 fL Normal 81.0-99.0 [facility] Comment on above: Performed By: #### B MP #### [facility] [address] [place] [address] Dr. Jonatan Mancilla MONO # 0.4 103/ul Normal 0.3-0.8 [facility] Comment on above: Performed By: #### B MP #### [facility] [address] [place] [address] Dr. Jonatan Mancilla Monocytes/100 WBC (Bld) 5.5 % Normal 1.7-12.0 [facility] Comment on above: Performed By: #### B MP #### [facility] [address] [place] [address] Dr. Jonatan Mancilla NEUT # 3.2 103/ul Normal 1.4-6.5 [facility] Comment on above: Performed By: #### B MP #### [facility] [address] [place] [address] Dr. Jonatan Mancilla Neutrophils/100 WBC (Bld) 46.9 % Normal 43.0-75.0 [facility] Comment on above: Performed By: #### B MP #### [facility] [address] [place] [address] Dr. Jonatan Mancilla Platelet mean volume (Bld) [Entitic vol] 9.2 fL Critically low 9.5-13.5 [facility] Comment on above: Performed By: #### B MP #### [facility] [address] [place] [address] Dr. Jonatan Mancilla PLT 246 103/ul Normal 150-450 [facility] Comment on above: Performed By: #### B MP #### [facility] [address] [place] [address] Dr. Jonatan Mancilla RBC 4.95 106/ul Normal 4.20-5.40 [facility] Comment on above: Performed By: #### B MP #### [facility] [address] [place] [address] Dr. Jonatan Mancilla WBC 6.7 103/ul Normal 4.0-11.0 [facility] Comment on above: Performed By: #### B MP #### [facility] [address] [address] [address] Jonatan Mancilla FREE THYROXINE INDEX T7on FTI 3.77 Normal [facility] Comment on above: Performed By: #### C BC #### [facility] [address] [place] [address] Marcos Mcgregor T3U 34.0 % Normal 23.5-40.5 [facility] Comment on above: Performed By: #### C BC #### [facility] [address] [place] [address] Marcos Mcgregor T4 [Mass/Vol] 11.10 ug/dL Critically high 5.53-11.00 [facility] Comment on above: Performed By: #### C BC #### [facility] [address] [place] [address] Marcos Mcgregor GLYCOHEMOGLOBIN A1Con 2021 ADA RECOMMENDATION ADA THERAPEUTIC TARGET 6.0 - 7.0 ACTION SUGGESTED > 7.0 Normal [facility] Comment on above: Performed By: #### A 1C #### [facility] [address] [place] [address] Dr. Jonatan Mancilla Glucose [Mass/Vol] 143 mg/dL Normal [facility] Comment on above: Performed By: #### A 1C #### [facility] [address] [address] [address] Jonatan Mancilla HbA1c (Bld) [Mass fraction] 6.6 % Critically high <=6.0 [facility] Comment on above: Performed By: #### A 1C #### [facility] [address] [place] [address] Dr. Jonatan Mancilla IRONon 06-09-2021 Iron [Mass/Vol] 102.0 ug/dL Normal 37.0-170.0 [facility] Comment on above: Performed By: #### I KATHIA, VITMUNIRA, VITB12 #### [facility] [address] [place] [address] Dr. Jonatan Mancilla LIPID PROFILEon 06-09-2021 CHOL-HDL RATIO NORM SEE BELOW Normal [facility] Comment on above: Result Comment: 3.3 - 4.4 LOW RISK 4.4 - 7.1 AVERAGE RISK 7.1 - 11.0 MODERATE RISK >11.0 HIGH RISK Performed By: #### C BC #### [facility] [address] [place], [place] [address] Marcos Meche Cholesterol [Mass/Vol] 183 mg/dL Normal <=200 [facility] Comment on above: Performed By: #### C BC #### [facility] [address] [place], [place] [address] Marcos Meche Cholesterol in HDL [Mass/Vol] 54 mg/dL Normal [facility] Comment on above: Performed By: #### C BC #### [facility] [address] [place], [place] [address] Marcos Meche Cholesterol in LDL [Mass/Vol] 107.6 mg/dL Normal [facility] Comment on above: Performed By: #### C BC #### [facility] [address] [place], [place] [address] Marcos Meche Cholesterol.total/C holesterol in HDL [Mass ratio] 3.4 {ratio} Normal [facility] Comment on above: Performed By: #### C BC #### [facility] [address] [place], [place] [address] Marcos Meche HDL NORMAL > or = 60 mg/dl - LO W CARDIOVASCULAR RISK <40 mg/dl - HIGH CARDIOVASCULAR RISK Normal [facility] Comment on above: Performed By: #### C BC #### [facility] [address] [place], [place] [address] Marcos Meche LDL CALC NORMAL SEE BELOW Normal [facility] Comment on above: Result Comment: <100 mg/dl OPTIMAL 100 - 129 mg/dl NEAR OR ABOVE OPTIMAL 130 - 159 mg/dl BORDERLINE HIGH 160 - 189 mg/dl HIGH >190 mg/dl VERY HIGH Performed By: #### C BC #### [facility] [address] [place], [place] [address] Marcos Meche Triglyceride [Mass/Vol] 107 mg/dL Normal <=150 [facility] Comment on above: Performed By: #### C BC #### [facility] [address] [address] Marcos Mcgregor VLDL CALC 21.4 mg/dL Normal [facility] Comment on above: Performed By: #### C BC #### [facility] [address] [address] Marcos Mcgregor PROF 14(COMP METB)on 022 Albumin [Mass/Vol] 3.7 g/dL Normal 3.5-5.0 [facility] Comment on above: Performed By: #### B MP #### [facility] [address] [place] [address] Dr. Jonatan Mancilla Albumin/Globulin [Mass ratio] 1.1 {ratio} Normal [facility] Comment on above: Performed By: #### B MP #### [facility] [address] [place] [address] Dr. Jonatan Mancilla ALP [Catalytic activity/Vol] 66 U/L Normal 38-126 [facility] Comment on above: Performed By: #### B MP #### [facility] [address] [place] [address] Dr. Jonatan Mancilla ALT [Catalytic activity/Vol] 62 U/L Critically high 9-52 [facility] Comment on above: Performed By: #### B MP #### [facility] [address] [place] [address] Dr. Jonatan Mancilla Anion gap [Moles/Vol] 12.3 mmol/L Normal [facility] Comment on above: Performed By: #### B MP #### [facility] [address] [place] [address] Dr. Jonatan Mancilla AST [Catalytic activity/Vol] 35 U/L Normal 14-36 [facility] Comment on above: Performed By: #### B MP #### [facility] [address] [place] [address] Dr. Jonatan Mancilla Bilirubin [Mass/Vol] 0.5 mg/dL Normal 0.2-1.3 [facility] Comment on above: Performed By: #### B MP #### [facility] [address] [address] [address] Jonatan Mancilla Calcium [Mass/Vol] 9.2 mg/dL Normal 8.4-10.2 [facility] Comment on above: Performed By: #### B MP #### [facility] [address] [address] [address] Jonatan Mancilla Chloride [Moles/Vol] 102 mmol/L Normal 98-107 [facility] Comment on above: Performed By: #### B MP #### [facility] [address] [address] [address] Jonatan Mancilla CO2 [Moles/Vol] 29.3 mmol/L Normal 22.0-30.0 [facility] Comment on above: Performed By: #### B MP #### [facility] [address] [place] [address] Dr. Jonatan Mancilla Creatinine [Mass/Vol] 0.66 mg/dL Normal 0.52-1.04 [facility] Comment on above: Performed By: #### B MP #### [facility] [address] [address] [address] Jonatan Mancilla EGFR-AF CYPRIOT >60 Normal >=60 [facility] Comment on above: Performed By: #### B MP #### [facility] [address] [place] [address] Dr. Jonatan Mancilla EGFR-NON AF CYPRIOT >60 Normal >=60 [facility] Comment on above: Performed By: #### B MP #### [facility] [address] [address] [address] Jonatan Mancilla Globulin (S) [Mass/Vol] 3.5 g/dL Normal [facility] Comment on above: Performed By: #### B MP #### [facility] [address] [address] [address] Jonatan Mancilla Glucose [Mass/Vol] 99 mg/dL Normal 74-106 [facility] Comment on above: Performed By: #### B MP #### [facility] [address] [address] [address] Jonatan Mancilla Potassium [Moles/Vol] 4.6 mmol/L Normal 3.4-5.0 [facility] Comment on above: Performed By: #### B MP #### [facility] [address] [place] [address] Dr. Jonatan Mancilla Protein [Mass/Vol] 7.2 g/dL Normal 6.1-8.2 [facility] Comment on above: Performed By: #### B MP #### [facility] [address] [place] [address] Dr. Jonatan Mancilla Sodium [Moles/Vol] 139 mmol/L Normal 137-145 [facility] Comment on above: Performed By: #### B MP #### [facility] [address] [place] [address] Dr. Jonatan Mancilla Urea nitrogen [Mass/Vol] 17.0 mg/dL Normal 7.0-17.0 [facility] Comment on above: Performed By: #### B MP #### [facility] [address] [place] [address] Dr. Jonatan Mancilla Urea nitrogen/Creatinine [Mass ratio] 25.8 mg/mg Normal [facility] Comment on above: Performed By: #### B MP #### [facility] [address] [place] [address] Dr. Jonatan Mancilla TSHon 06-09-2021 TSH 1.030 uIU/mL Normal 0.470-4.680 [facility] Comment on above: Performed By: #### C BC #### [facility] [address] [place] [address] Marcos Mcgregor TSH RANGE SEE BELOW Normal [facility] Comment on above: Result Comment: <0.3 4 UIU/ml HYPERTHYROID 0.34-5.60 UIU/ml EUTHYROID >5.60 UIU/ml HYPOTHYROID Performed By: #### C BC #### [facility] [address] [place] [address] Marcos Mcgregor VITAMIN B12on 06-09-2021 Cobalamin (Vitamin B12) [Mass/Vol] 590.0 pg/mL Normal 239.0-931.0 [facility] Comment on above: Performed By: #### I KATHIA, VITAD, VITB12 #### [facility] [address] [address] [address] Jonatan Mancilla VITAMIN D 25 OHon 06-09-2021 VIT D 25-OH 29.2 ng/mL Normal [facility] Comment on above: Performed By: #### I KATHIA, VITAD, VITB12 #### [facility] [address] [place] [address] Dr. Jonatan Mancilla VIT D RANGES SEE BELOW Normal [facility] Comment on above: Result Comment: <20 ng/mL Vit D deficient 20 - <30 ng/mL Vit D insufficient 30 - 100 ng/mL Vit D sufficient >100 ng/mL Potential Toxicity Performed By: #### I KATHIA, VITAD, VITB12 #### [facility] [address] [place] [address] Dr. Jonatan Mancilla Covid-19 PCR ([facility])on 04-22 SARS-CoV-2 (COVID-19) RNA FANNY+probe Ql (Unsp spec) Not detected Normal NOT DETECTED [facility] Comment on above: Result Comment: This test is not yet approved or cleared by the [place] FDA. When there are no FDA-approved or cleared tests available, and other criteria are met, FDA can make tests available under an emergency access mechanism called an Emergency Use Authorization (EUA). The EUA for this test is supported by the [place] of Health and Human Service's (HHS's) declaration [...] SARS-CoV-2. Performed By: #### C BC #### [facility] [address] [place], [place] [id number] Marcos Mcgregor Outside Colonoscopyon 2020 Outside Colonoscopy [id number] .[id number]:127 Normal [facility] POINT OF CARE GLUCOSEon 12-21 Glucose [Mass/Vol] 123 mg/dL Critically high 74-106 [facility] Comment on above: Performed By: #### P OCGLUC #### [facility] [address] [address] [address] Jonatan Mancilla Lab Reportson 01-02-2021 Lab Reports [id number] .[id number]:127 Normal [facility] Covid-19 PCR ([facility])on 12-21 SARS-CoV-2 (COVID-19) RNA FANNY+probe Ql (Unsp spec) Not detected Normal NOT DETECTED [facility] Comment on above: Result Comment: This test is not yet approved or cleared by the [place] FDA. When there are no FDA-approved or cleared tests available, and other criteria are met, FDA can make tests available under an emergency access mechanism called an Emergency Use Authorization (EUA). The EUA for this test is supported by the [place] of Health and Human Service's (HHS's) declaration [...] SARS-CoV-2. Performed By: #### B MP #### [facility] [address] [place] [address] Dr. Jonatan Mancilla Provider [facility] Provider Letter [facility] December 22, 2020 Alo Romero, [address] [place] [address] [place] [address] Re: RADHA KNIGHT Date of : 1970 Thank you for your referral of Radha Knight who was seen on consultation on December 16, 2020, for screening colonoscopy. I have enclosed my consultation notes for your review. I will be happy to follow Radha. Sincerely, Meghann Dias MD General Surgery [facility] Consent for Procedure/Surger yon 12-19-2020 Consent for Procedure/Surgery [id number] .[id number]:127 Normal [facility] Ambulatory Clinical Summaryo n 12-16-2020 Ambulatory Clinical Summary {[id number] Normal [facility] Patient Educationon 12-17-19 21 Patient Education Colonoscopy [...] ? Medicines taken, including vitamins, herbs, eyedrops, fodj-eaz-mrkjson medicines, and creams. ? Use of steroids [...] medicines have worn off. ? Only take qpgu-xdo-dpdvqsv or prescription medicines for pain, discomfort, or [...] Document Reviewed: 11/18/2008 ExitCare? Patient Information ?2014 [employer] Radiology Colonoscopy, Adult, Care After This sheet [...] slower pace than normal. ? Eat soft, aggg-fl-iyztke foods. ? Take wpli-pgz-izsjmvq or prescription medicines only as told by [...] your h (more content not included)... Normal [facility] HEPATITIS PANEL, ACUTEon HBsAg Screen Negative Normal Negative [facility] Comment on above: Performed By: #### H EPACUT #### [facility] [address] [place] Hep A Ab, IgM Negative Normal Negative [facility] Comment on above: Performed By: #### H EPACUT #### [facility] [address], [place] [address] Marcos Meche Hep B Core Ab, IgM Negative Normal Negative [facility] Comment on above: Performed By: #### H EPACUT #### [facility] [address], [place] [address] [facility] Hep C Virus Ab <0.1 Normal 0.0-0.[address] [facility] Comment on above: Result Comment: Nega tive: < 0.8 Indeterminate: 0.8 - 0.9 Positive: > 0.9 . The CDC recommends that a positive HCV antibody result be followed up with a HCV Nucleic Acid Amplification test (352122). Performed By: #### H EPACUT #### [facility] [address] [place], [place] [id number] Marcosjeremy Rainen BNPon 11-30-2020 Natriuretic peptide B (Bld) [Mass/Vol] 65.0 pg/mL Normal <=900.0 [facility] Comment on above: Performed By: #### C BC #### [facility] [address] [place], [place] [id number] Marcos Meche CBC AUTO DIFFon 11-30-2020 BASO # 0.0 103/ul Normal 0.0-0.1 [facility] Comment on above: Performed By: #### C BC #### [facility] [address] [place] [address] Marcos Meche Basophils/100 WBC (Bld) 0.2 % Normal 0.2-2.0 [facility] Comment on above: Performed By: #### C BC #### [facility] [address] [place] [address] Marcos Meche EO # 0.3 103/ul Normal 0.0-0.7 [facility] Comment on above: Performed By: #### C BC #### [facility] [address] [place] [address] Marcos Meche Eosinophils/100 WBC (Bld) 2.8 % Normal 0.9-7.0 [facility] Comment on above: Performed By: #### C BC #### [facility] [address] [place], [place] [id number] Marcos Meche Erythrocyte distribution width (RBC) [Ratio] 15.3 % Critically high 11.0-15.0 [facility] Comment on above: Performed By: #### C BC #### [facility] [address] [place] [address] Marcos Meche Hematocrit (Bld) [Volume fraction] 41.8 % Normal 36.0-48.0 [facility] Comment on above: Performed By: #### C BC #### [facility] [address] [place], [place] [id number] Marcos Meche Hemoglobin (Bld) [Mass/Vol] 13.8 g/dL Normal 12.0-16.0 [facility] Comment on above: Performed By: #### C BC #### [facility] [address] [place] [address] Marcos Meche IG # 0.01 10e3/ul Normal 0.00-0.03 [facility] Comment on above: Performed By: #### C BC #### [facility] [address] [address] Marcos Meche IG % 0.1 % Normal 0.0-0.5 [facility] Comment on above: Performed By: #### C BC #### [facility] [address] [place] [address] Marcos Meche LYMPH # 4.3 103/ul Critically high 1.2-3.8 [facility] Comment on above: Performed By: #### C BC #### [facility] [address] [place] [address] Marcos Meche Lymphocytes/100 WBC (Bld) 46.3 % Normal 20.5-60.0 [facility] Comment on above: Performed By: #### C BC #### [facility] [address] [place] [address] Marcos Meche MANUAL DIFF REQ NO Normal [facility] Comment on above: Performed By: #### C BC #### [facility] [address] [place] [address] Marcos Meche MCH (RBC) [Entitic mass] 29.6 pg Normal 26.7-34.0 [facility] Comment on above: Performed By: #### C BC #### [facility] [address] [place] [address] Marcos Meche MCHC (RBC) [Mass/Vol] 33.0 g/dL Normal 29.9-35.2 [facility] Comment on above: Performed By: #### C BC #### [facility] [address] [place] [address] Marcos Meche MCV (RBC) [Entitic vol] 89.5 fL Normal 81.0-99.0 [facility] Comment on above: Performed By: #### C BC #### [facility] [address] [place] [address] Marcosjeremy Mcgregor MONO # 0.6 103/ul Normal 0.3-0.8 [facility] Comment on above: Performed By: #### C BC #### [facility] [address] [place], [place] [id number] Marcos Mcgregor Monocytes/100 WBC (Bld) 6.6 % Normal 1.7-12.0 [facility] Comment on above: Performed By: #### C BC #### [facility] [address] [place] [address] Marcosjeremy Rainen NEUT # 4.1 103/ul Normal 1.4-6.5 [facility] Comment on above: Performed By: #### C BC #### [facility] [address] [place] [address] Marcos Mcgregor Neutrophils/100 WBC (Bld) 44.0 % Normal 43.0-75.0 [facility] Comment on above: Performed By: #### C BC #### [facility] [address] [place] [address] Marcos Mcgregor Platelet mean volume (Bld) [Entitic vol] 10.0 fL Normal 9.5-13.5 [facility] Comment on above: Performed By: #### C BC #### [facility] [address] [place] [address] Marcosjeremy Rainen PLT 220 103/ul Normal 150-450 [facility] Comment on above: Performed By: #### C BC #### [facility] [address] [place] [address] Marcos Meche RBC 4.67 106/ul Normal 4.20-5.40 [facility] Comment on above: Performed By: #### C BC #### [facility] [address] [place], [place] [address] Marcos Meche WBC 9.3 103/ul Normal 4.0-11.0 [facility] Comment on above: Performed By: #### C BC #### [facility] [address] [place] [address] Marcos Rainen FREE THYROXINE INDEX T7on FTI 3.05 Normal [facility] Comment on above: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
--- NOTE | 2024-10-22 10:04 | PC.NURSE ---
Nursing Note Cardiac Stress Test Reviewed: Medication, allergies and patient history reviewed. Stress Test: [x ] Patient tolerated stress test well. [ ] Patient unable to tolerate walking on treadmill. Switched to Lexiscan stress test. [x ] No chest pain noted per patient [ ] Chest pain that resolved prior to leaving stress lab. [ ] No dyspnea noted. [x ] Dyspnea that resolved prior to leaving stress lab. [x ] Patient left stress lab asymptomatic and hemodynamically stable. [ ] Patient taken to the Emergency Room due to non-resolving symptoms following stress test. [x ] Patient achieved target heart rate. [ ] Patient unable to achieve target heart rate. [ ] Aminophylline administered as reversal agent to Lexiscan (Regadenoson). [ ] Nitro administered. Nursing Comments:Pt had cardiolite test done. Pt had no CP but had SOB that she states is normal due to her being a smoker. Pt ambulated to cafeteria for breakfast prior to second set of images.
--- NOTE | 2024-10-22 13:41 | PM.STRESS ---
Stress Test Stress Test Allergies Allergy/AdvReac Type Severity Reaction Status Date / Time Sulfa (Sulfonamide Allergy Intermediate Hives Verified 10/14/24 11:44 Antibiotics) Requesting physician: Alex Romero Procedure: Treadmill exercise nuclear stress test with Cardiolyte injection General Information: Reason for Stress Test: [Chest pain] Cardiac History and Risk Factors: [Hypertension, diabetes] Resting 12 - Lead Electrocardiogram: Normal sinus rhythm Normal ECG Stress Test: Protocol: [Elton protocol; the patient exercised for 5 minutes and 23 seconds achieving 7 METS and reaching stage II of the Elton protocol. Test was terminated due to target heart rate achieved and fatigue.] Exercise Capacity: [Average] Blood Pressure Response: [Normal blood pressure response] Rhythm: [Sinus rhythm, premature ventricular contractions] ST - Response: [No significant ST-T wave abnormalities noted.] Patient Response: [No chest pain, patient reported shortness of breath that resolved within 3 minutes] Interpretation: 1. No ischemic EKG changes seen on treadmill exercise stress test 2. Appropriate heart rate and blood pressure response to exercise 3. Bass treadmill score is +5.2. Estimated 1 year mortality 0.5 to 0.6%. Risk category: Low risk. Angiograph: usually not indicated. 4. Nuclear images are to be read, interpreted, and reported in a separate dictation
== END 2024-10-22 09:06 | disposition home or self-care (01) ==
LOC: NM 09:05
PROVIDERS: PCP Family Medicine; Visit Provider Family Medicine
DX: R07.9 Chest pain, unspecified (principal)
CPT/HCPCS: 78452; 93017; A9500

== ENCOUNTER 2025-03-26 10:13 | Outpatient (OUT) | payer MEDICARE, SELFPAY ==
--- OUTSIDE RECORDS SUMMARY | 2025-03-26 10:27 | XMS_ITS | CCD ---
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 (Bld)3.7 %Normal0.9-7.0[facility] Comment on above:Performed By: #### BMP #### [facility] [address] [place] [address] Dr. Jonatan Gallegorythrocyte distribution width (RBC) [Ratio]15.4 %Critically high 11.0-15.0The [facility] CenterComment on above:Performed By: #### BMP #### [facility] [address] [place] [address] Dr. Jonatan MancillaHematocrit (Bld) [Volume fraction]44.9 %Lpyvwz73.0-48.0The Atglen HospitalComment on above:Performed By: #### BMP #### [facility] [address] [place] [address] Dr. Jonatan MancillaHemoglobin (Bld) [Mass/Vol]14.7 g/gNXhhcnh05.0-16.0The [facility] CenterComment on above:Performed By: #### BMP #### [facility] [address] [place] [address] Dr. Jonatan Raymond #0.02 10e3/ulNormal0.00-0.03The [facility] CenterComment on above:Performed By: #### BMP #### [facility] [address] [place] [address] Dr. Jonatan Raymond %0.3 %Normal0.0-0.5The [facility] CenterComment on above: Performed By: #### BMP #### [facility] [address] [place] [address] Dr. Jonatan ChildersH #2.9 103/ulNormal1.2-3.8The [facility] CenterComment on above:Performed By: #### BMP #### [facility] [address] [place] [address] Dr. Jonatan Childershocytes/100 WBC (Bld)43.3 %Vounph51.5-60.0The [facility] CenterComment on above:Performed By: #### BMP #### [facility] [address] [place] [address] Dr. Jonatan RubyUAL DIFF REQNONormalThe [facility] CenterComment on above: Performed By: #### BMP #### [facility] [address] [address] [address] Jonatan Dinero (RBC) [Entitic mass]29.7 ufYcwxoo04.7-34.0The [facility] CenterComment on above:Performed By: #### BMP #### [facility] [address] [place] [address] Dr. Jonatan Dinero (RBC) [Mass/Vol]32.7 g/nKYquroz12.9-35.2The [facility]glen HospitalComment on above:Performed By: #### BMP #### [facility] [address] [place] [address] Dr. Jonatan Dinero (RBC) [Entitic vol]90.7 aORqfyng31.0-99.0The [facility] CenterComment on above:Performed By: #### BMP #### [facility] [address] [place] [address] Dr. Jonatan Schneider #0.4 103/ulNormal0.3-0.8The [facility] CenterComment on above:Performed By: #### BMP #### [facility] [address] [place] [address] Dr. Jonatan Ellisocytes/100 WBC (Bld)5.5 %Normal1.7-12.0The [facility] Comment on above:Performed By: #### BMP #### [facility] [address] [place] [address] Dr. Jonatan Tripathi #3.2 103/ulNormal1.4-6.5The [facility] CenterComment on above:Performed By: #### BMP #### [facility] [address] [place] [address] Dr. Jonatan Woodsutrophils/100 WBC (Bld)46.9 %Csbrog45.0-75.0The [facility] CenterComment on above:Performed By: #### BMP #### [facility] [address] [place] [address] Dr. Jonatan Aulet mean volume (Bld) [Entitic vol]9.2 fLCritically low 9.5-13.5The [facility] CenterComment on above:Performed By: #### BMP #### [facility] [address] [address] [address] Jonatan MancillaPLT246 103/rfLqrftv841-275Ryu [facility] CenterComment on above: Performed By: #### BMP #### [facility] [address] [address] [address] Jonatan MancillaRBC4.95 106/ulNormal4.20-5.40The [facility] CenterComment on above:Performed By: #### BMP #### [facility] [address] [place] [address] Dr. Jonatan MancillaWBC6.7 103/ulNormal4.0-11.0The [facility] CenterComment on above: Performed By: #### BMP #### [facility] [address] [place] [address] Dr. Jonatan Tay THYROXINE INDEX T7on 92-57-9867UUJ0.77NormSelect Medical Cleveland Clinic Rehabilitation Hospital, Edwin ShawComment on above:Performed By: #### CBC #### [facility] [address] [place] [address] Marcos WtwdqY2I16.0 %Dbxqda02.5-40.5The [facility] on above: Performed By: #### CBC #### [facility] [address] [address] Marcos KarenT4 [Mass/Vol]11.10 ug/dLCritically high5.53-11.00The [facility] CenterComment on above:Performed By: #### CBC #### [facility] [address] [place] [address] Marcos KarenGLYCOHEMOGLOBIN A1Con 29-90-6574GPJ RECOMMENDATIONADA THERAPEUTIC TARGET 6.0 - 7.0 ACTION SUGGESTED > 7.0NoMercy Health Perrysburg HospitalComment on above:Performed By: #### A1C #### [facility] [address] [place] [address] Dr. Jonatan MancillaGlucose [Mass/Vol]143 mg/[facility] on above:Performed By: #### A1C #### [facility] [address] [address] [address] Jonatan MancillaHbA1c (Bld) [Mass fraction]6.6 %Critically high<=6.0The [facility] CenterComment on above:Performed By: #### A1C #### [facility] [address] [address] [address] Jonatan Lizama 86-68-6238Kpnz [Mass/Vol]102.0 ug/cUAvijns55.0-170.0The [facility] CenterComment on above:Performed By: #### IRON, VITAD, VITB12 #### [facility] [address] [place] [address] Dr. Jonatan MancillaLIPID PROFILEon 35-52-6456AOLJ-HDL RATIO NORMSGalion Community HospitalComment on above:Result Comment: 3.3 - 4.4 LOW RISK 4.4 - 7.1 AVERAGE RISK 7.1 - 11.0 MODERATE RISK >11.0 HIGH RISKPerformed By: #### CBC #### [facility] [address] [address] Marcos KarenCholesterol [Mass/Vol]183 mg/dLNormal<=200[facility] Comment on above:Performed By: #### CBC #### [facility] [address] [address] Marcos KarenCholesterol in HDL [Mass/Vol]54 mg/dLMcCullough-Hyde Memorial Hospital Comment on above:Performed By: #### CBC #### [facility] [address] [address] Marcos KarenCholesterol in LDL [Mass/Vol]107.6 mg/dLMcCullough-Hyde Memorial Hospital Comment on above:Performed By: #### CBC #### [facility] [address] [place] [address] Marcos KarenCholesterol.total/Cholesterol in HDL [Mass ratio]3.4 {ratio}Normal The [facility] CenterComment on above:Performed By: #### CBC #### [facility] [address] [address] Marcos KarenHDL NORMAL> or = 60 mg/dl - LOW CARDIOVASCULAR RISK <40 mg/dl - HIGH CARDIOVASCULAR RISKMcCullough-Hyde Memorial HospitalComment on above:Performed By: #### CBC #### [facility] [address] [place] [address] Marcos KarenLDL CALC NORMALSEE BELOWMcCullough-Hyde Memorial HospitalComment on above: Result Comment: <100 mg/dl OPTIMAL 100 - 129 mg/dl NEAR OR ABOVE OPTIMAL 130 - 159 mg/dl BORDERLINE HIGH 160 - 189 mg/dl HIGH >190 mg/dl VERY HIGHPerformed By: #### CBC #### [facility] [address] [place] [address] Marcos KarenTriglyceride [Mass/Vol]107 mg/dLNormal<=150The [facility] Comment on above:Performed By: #### CBC #### [facility] [address] [place] [address] Marcos KarenVLDL CALC21.4 mg/dLNoMercy Health Perrysburg HospitalComment on above: Performed By: #### CBC #### [facility] [address] [place] [address] Marcos KarenPROF 14(COMP METB)on 45-64-2024Feoruju [Mass/Vol]3.7 g/dLNormal 3.5-5.0The [facility] CenterComment on above:Performed By: #### BMP #### [facility] [address] [place] [address] Dr. Jonatan MancillaAlbumin/Globulin [Mass ratio]1.1 {ratio}NormalThe [facility] CenterComment on above:Performed By: #### BMP #### [facility] [address] [place] [address] Dr. Jonatan Rea [Catalytic activity/Vol]66 U/EKfgtnk79-363Poj [facility] CenterComment on above:Performed By: #### BMP #### [facility] [address] [place] [address] Dr. Jonatan Lewis [Catalytic activity/Vol]62 U/LCritically high9-52A[facility] System GlenbeighComment on above:Performed By: #### BMP #### [facility] [address] [address] [address] Jonatan Alves gap [Moles/Vol]12.3 mmol/LNormalAcmc Healthcare System Glen[facility] Comment on above:Performed By: #### BMP #### [facility] [address] [address] [address] Jonatan MancillaAST [Catalytic activity/Vol]35 U/NAvhzkw84-46Eeb [facility] CenterComment on above:Performed By: #### BMP #### [facility] [address] [address] [address] Jonatan MancillaBilirubin [Mass/Vol]0.5 mg/dLNormal0.2-1.3TCorey Hospital Comment on above:Performed By: #### BMP #### [facility] [address] [address] [address] Jonatan MancillaCalcium [Mass/Vol]9.2 mg/dLNormal8.4-10.2[facility] Comment on above:Performed By: #### BMP #### [facility] [address] [address] [address] Jonatan MancillaChloride [Moles/Vol]102 mmol/KDfrath69-999PlbAcmc Healthcare System Glenbeigh Comment on above:Performed By: #### BMP #### [facility] [address] [address] [address] Jonatan MancillaCO2 [Moles/Vol]29.3 mmol/LSmwkkk93.0-30.0[facility] Comment on above:Performed By: #### BMP #### [facility] [address] [address] [address] Jonatan MancillaCreatinine [Mass/Vol]0.66 mg/dLNormal0.52-1.04The [facility] CenterComment on above:Performed By: #### BMP #### [facility] [address] [address] [address] Cheung ChangEGFR-AF CZECH>60Normal>=60The [facility] CenterComment on above:Performed By: #### BMP #### [facility] [address] [address] [address] Jonatan GallegoGFR-NON AF CZECH>60Normal>=60The [facility] CenterComment on above:Performed By: #### BMP #### [facility] [address] [address] [address] Jonatan MancillaGlobulin (S) [Mass/Vol]3.5 g/dLNormSelect Medical Cleveland Clinic Rehabilitation Hospital, Edwin ShawComment on above:Performed By: #### BMP #### [facility] [address] [address] [address] Jonatan MancillaGlucose [Mass/Vol]99 mg/kGUvkklk20-097Whn [facility] Comment on above:Performed By: #### BMP #### [facility] [address] [address] [address] Jonatan MancillaPotassium [Moles/Vol]4.6 mmol/LNormal3.4-5.0The [facility] Comment on above:Performed By: #### BMP #### [facility] [address] [address] [address] Jonatan MancillaProtein [Mass/Vol]7.2 g/dLNormal6.1-8.2The [facility] Comment on above:Performed By: #### BMP #### [facility] [address] [address] [address] Jonatan MancillaSodium [Moles/Vol]139 mmol/HKlemch844-541Vfm [facility] Comment on above:Performed By: #### BMP #### [facility] [address] [address] [address] Jonatan MancillaUrea nitrogen [Mass/Vol]17.0 mg/dLNormal7.0-17.0The [facility] CenterComment on above:Performed By: #### BMP #### [facility] [address] [address] [address] Jonatan MancillaUrea nitrogen/Creatinine [Mass ratio]25.8 mg/mgNormSelect Medical Cleveland Clinic Rehabilitation Hospital, Edwin ShawComment on above:Performed By: #### BMP #### [facility] [address] [place] [address] Dr. Jonatan Larson 47-46-1513IQJ2.030 uIU/mLNormal0.470-4.680The [facility] CenterComment on above:Performed By: #### CBC #### [facility] [address] [place] [address] Marcos CARLOS BELOWMcCullough-Hyde Memorial HospitalComment on above:Result Comment: <0.34 UIU/ml HYPERTHYROID 0.34-5.60 UIU/ml EUTHYROID >5.60 UIU/ml HYPOTHYROIDPerformed By: #### CBC #### [facility] [address] [place] [address] Marcos McgregorVITAMIN B12on 27-08-7262Qgkwswhum (Vitamin B12) [Mass/Vol]590.0 pg/gFKkahzt496.0-931.0The [facility] CenterComment on above:Performed By: #### IRON, VITAD, VITB12 #### [facility] [address] [place] [address] Dr. Jonatan MancillaVITAMIN D 25 OHon 71-54-9685UDD D 25-OH29.2 ng/mLNormalAcmc Healthcare System GlenbeighComment on above:Performed By: #### IRON, VITAD, VITB12 #### [facility] [address] [place] [address] Dr. Jonatan Lorenzo RANGESSEOhioHealth Mansfield HospitalComment on above: Result Comment: <20 ng/mL Vit D deficient 20 - <30 ng/mL Vit D insufficient 30 - 100 ng/mL Vit D sufficient >100 ng/mL Potential ToxicityPerformed By: #### IRON, VITAD, VITB12 #### [facility] [address] [place] [address] Dr. Jonatan Potter-19 PCR ([facility])on 55-25-2429EEEL-CoV-2 (COVID-19) RNA FANNY+probe Ql (Unsp spec)Not detectedNormalNOT DETECTEDThe [facility] Comment on above:Result Comment: This test is not yet approved or cleared by the [place] FDA. When there are no FDA-approved or cleared tests available, and other criteria are met, FDA can make tests available under an emergency access mechanism called an Emergency Use Authorization (EUA). The EUA for this test is supported by the Neurology Hospitalist of Health and Human Service's (HHS's) declaration that circumstances exist to justify the emergency use of in vitro diagnostics for the detection and/or diagnosis of the virus that causes COVID- 19. This EUA will remain in effect (meaning [...] of clinical signs and symptoms consistent with SARS-CoV-2.Performed By: #### CBC #### [facility] [address] [place] [address] GLUCOSEon 08-24-6709Uogpfnm [Mass/Vol]123 mg/dL Critically hkhu93-499MfnAcmc Healthcare System GlenbeighComment on above:Performed By: #### POCGLUC #### [facility] [address] [place], [place] [id number] Dr. Jonatan Potter-19 PCR ([facility])on 55-68-7408DGFE-CoV-2 (COVID-19) RNA FANNY+probe Ql (Unsp spec)Not detectedNormalNOT DETECTEDThe [facility] Comment on above:Result Comment: This test is not yet approved or cleared by the [place] FDA. When there are no FDA-approved or cleared tests available, and other criteria are met, FDA can make tests available under an emergency access mechanism called an Emergency Use Authorization (EUA). The EUA for this test is supported by the Neurology Hospitalist of Health and Human Service's (HHS's) declaration that circumstances exist to justify the emergency use of in vitro diagnostics for the detection and/or diagnosis of the virus that causes COVID- 19. This EUA will remain in effect (meaning [...] of clinical signs and symptoms consistent with SARS-CoV-2.Performed By: #### BMP #### [facility] [address] [place] [address] Dr. Jonatan Ramirez PANEL, ACUTEon 46-39-0774WIaTs ScreenNegativeNormal NegativeThe [facility] CenterComment on above:Performed By: #### HEPACUT #### [facility] [address] [place] [address] Marcos KarenHep A Ab, IgMNegativeNormalNegativeThe [facility] CenterComment on above:Performed By: #### HEPACUT #### [address] [address] Marcos KarenHep B Core Ab, IgMNegativeNormalNegativeThe [facility] CenterComment on above:Performed By: #### HEPACUT #### [facility] [address] [place] [address] Marcos KarenHep C Virus Ab<0.5Ycvigj2.0-0.9The [facility] on above:Result Comment: Negative: < 0.8 Indeterminate: 0.8 - 0.9 Positive: > 0.9 . The CDC recommends that a positive HCV antibody result be followed up with a HCV Nucleic Acid Amplification test (845201).Performed By: #### HEPACUT #### [facility] [address] [place] [address] Marcos KarenBNPon 49-00-9484Cqghujhfvxt peptide B (Bld) [Mass/Vol]65.0 pg/mL Normal<=900.0The [facility] CenterComment on above:Performed By: #### CBC #### [facility] [address] [place] [address] Marcos KarenCBC AUTO DIFFon 30-92-1223LAVO #0.0 103/ulNormal0.0-0.1The [facility] CenterComment on above:Performed By: #### CBC #### [facility] [address] [id number] Marcos KarenBasophils/100 WBC (Bld)0.2 %Normal0.2-2.0The [facility] Comment on above:Performed By: #### CBC #### [facility] [address] [place] [address] Marcos KarenEO #0.3 103/ulNormal0.0-0.7The [facility] CenterComment on above: Performed By: #### CBC #### [facility] [address] [place], [place] [id number] Marcos KarenEosinophils/100 WBC (Bld)2.8 %Normal0.9-7.0The [facility] Comment on above:Performed By: #### CBC #### [facility] [address] [place] [address] Marcos KarenErythrocyte distribution width (RBC) [Ratio]15.3 %Critically high 11.0-15.0The [facility] CenterComment on above:Performed By: #### CBC #### [facility] [address] [place] [address] Marcos KarenHematocrit (Bld) [Volume fraction]41.8 %Sektjg25.0-48.0The [facility] CenterComment on above:Performed By: #### CBC #### [facility] [address] [place], [place] [id number] Marcos KarenHemoglobin (Bld) [Mass/Vol]13.8 g/tKLuomhg72.0-16.0The [facility] CenterComment on above:Performed By: #### CBC #### [facility] [address] [place], [place] [id number] Marcos KarenIG #0.01 10e3/ulNormal0.00-0.03The [facility] CenterComment on above:Performed By: #### CBC #### [facility] [address] [place] [address] Marcos KarenIG %0.1 %Normal0.0-0.5The [facility] CenterComment on above: Performed By: #### CBC #### [facility] [address] [address] Marcos KarenLYMPH #4.3 103/ulCritically high1.2-3.8The [facility] CenterComment on above:Performed By: #### CBC #### [facility] [address] [place] [address] Marcos KarenLymphocytes/100 WBC (Bld)46.3 %Yaacux06.5-60.0[facility] Comment on above:Performed By: #### CBC #### [facility] [address] [place] [address] Marcos KarenMANUAL DIFF REQNONormalThe [facility] CenterComment on above: Performed By: #### CBC #### [facility] [address] [place] [address] Marcos KarenMCH (RBC) [Entitic mass]29.6 egHwpyyd81.7-34.0[facility] Comment on above:Performed By: #### CBC #### [facility] [address] [place] [address] Marcos KarenMCHC (RBC) [Mass/Vol]33.0 g/lJCvyhji69.9-35.2[facility] Comment on above:Performed By: #### CBC #### [facility] [address] [place] [address] Marcos KarenMCV (RBC) [Entitic vol]89.5 iNOntuze82.0-99.0The [facility] Comment on above:Performed By: #### CBC #### [facility] [address] [place] [address] Marcos KarenMONO #0.6 103/ulNormal0.3-0.8The [facility] CenterComment on above: Performed By: #### CBC #### [facility] [address] [place] [address] Marcos KarenMonocytes/100 WBC (Bld)6.6 %Normal1.7-12.0[facility] Comment on above:Performed By: #### CBC #### [facility] [address] [place] [address] Marcos KarenNEUT #4.1 103/ulNormal1.4-6.5The [facility] CenterComment on above: Performed By: #### CBC #### [facility] [address] [place] [address] Marcos KarenNeutrophils/100 WBC (Bld)44.0 %Xtikjs71.0-75.0The [facility] Comment on above:Performed By: #### CBC #### [facility] [address] [place] [address] Marcos KarenPlatelet mean volume (Bld) [Entitic vol]10.0 fLNormal9.5-13.5The University [facility] CenterComment on above:Performed By: #### CBC #### [facility] [address] [place] [address] Marcos DziemFEQ211 103/xoOlcmqr314-424Nvr [facility] CenterComment on above: Performed By: #### CBC #### [facility] [address] [place] [address] Marcos KarenRBC4.67 106/ulNormal4.20-5.40The [facility] CenterComment on above: Performed By: #### CBC #### [facility] [address] [place] [address] Marcos KarenWBC9.3 103/ulNormal4.0-11.0The [facility] CenterComment on above: Performed By: #### CBC #### [facility] [address] [place] [address] Marcos KarenFREE THYROXINE INDEX T7on 37-57-2182KIK1.05NormalThCity HospitalComment on above:Performed By: #### CBC #### [facility] [address] [place] [address] Marcos HwrgsA9M25.0 %Iqnmzd19.5-40.5The [facility] CenterComment on above: Performed By: #### CBC #### [facility] [address] [place] [address] Marcos KarenT4 [Mass/Vol]8.70 ug/dLNormal5.53-11.00A[facility] Healthcare System GlenbeighComment on above:Performed By: #### CBC #### [facility] [address] [place] [address] Marcos KarenGLYCOHEMOGLOBIN A1Con [id number] RECOMMENDATIONADA THERAPEUTIC TARGET 6.0 - 7.0 ACTION SUGGESTED > 7.0NoMercy Health Perrysburg HospitalComment on above:Performed By: #### BMP #### [facility] [address] [address] [address] Jonatan MancillaGlucose [Mass/Vol]160 mg/dLNoMercy Health Perrysburg HospitalComment on above:Performed By: #### BMP #### [facility] [address] [place] [address] Dr. Jonatan MancillaHbA1c (Bld) [Mass fraction]7.2 %Critically high<=6.0The [facility] CenterComment on above:Performed By: #### BMP #### [facility] [address] [place] [address] Dr. Jonatan MancillaIROBirgit [id number] [Mass/Vol]35.0 ug/dLCritically low 37.0-170.0[facility] System GlenbeighComment on above:Performed By: #### VITAD, IRON #### [facility] [address] [place] [address] Marcos KarenLIPID PROFILEon [id number]-HDL RATIO NORMSEE BELOWMcCullough-Hyde Memorial HospitalComment on above:Result Comment: 3.3 - 4.4 LOW RISK 4.4 - 7.1 AVERAGE RISK 7.1 - 11.0 MODERATE RISK >11.0 HIGH RISKPerformed By: #### CBC #### [facility] [address] [place] [address] Marcos KarenCholesterol [Mass/Vol]154 mg/dLNormal<=200[facility] Comment on above:Performed By: #### CBC #### [facility] [address] [place] [address] Marcos KarenCholesterol in HDL [Mass/Vol]54 mg/dLMcCullough-Hyde Memorial Hospital Comment on above:Performed By: #### CBC #### [facility] [address] [place] [address] Marcos KarenCholesterol in LDL [Mass/Vol]80.6 mg/dLMcCullough-Hyde Memorial Hospital Comment on above:Performed By: #### CBC #### [facility] [address] [place] [address] Marcos KarenCholesterol.total/Cholesterol in HDL [Mass ratio]2.9 {ratio}Normal [facility] System GlenbeighComment on above:Performed By: #### CBC #### [facility] [address] [place] [address] Marcos KarenHDL NORMAL> or = 60 mg/dl - LOW CARDIOVASCULAR RISK <40 mg/dl - HIGH CARDIOVASCULAR RISKMcCullough-Hyde Memorial HospitalComment on above:Performed By: #### CBC #### [facility] [address] [place] [address] Marcos KarenLDL CALC NORMALSEE BELOWMcCullough-Hyde Memorial HospitalComment on above: Result Comment: <100 mg/dl OPTIMAL 100 - 129 mg/dl NEAR OR ABOVE OPTIMAL 130 - 159 mg/dl BORDERLINE HIGH 160 - 189 mg/dl HIGH >190 mg/dl VERY HIGHPerformed By: #### CBC #### [facility] [address] [place] [address] Marcos KarenTriglyceride [Mass/Vol]97 mg/dLNormal<=150[facility] Comment on above:Performed By: #### CBC #### [facility] [address] [place] [address] Marcos KarenVLDL CALC19.4 mg/dLMcCullough-Hyde Memorial HospitalComment on above: Performed By: #### CBC #### [facility] [address] [place] [address] Marcos KarenMAGNESIUMon [id number] [Mass/Vol]2.1 mg/dLNormal1.6-2.3TCorey HospitalComment on above:Performed By: #### CBC #### [facility] [address] [address] Marcos KarenPROF 14(COMP METB)on 39-75-3780Gkadpfj [Mass/Vol]3.8 g/dLNormal 3.5-5.0A[facility] Healthcare System GlenbeighComment on above:Performed By: #### CBC #### [facility] [address] [address] Marcos KarenAlbumin/Globulin [Mass ratio]1.2 {ratio}NormalAcmc Healthcare System Glenbeigh Comment on above:Performed By: #### CBC #### [facility] [address] [place] [address] Marcos KarenALP [Catalytic activity/Vol]55 U/YEznvdi49-557Hci [facility] Comment on above:Performed By: #### CBC #### [facility] [address] [place] [address] Marcos KarenALT [Catalytic activity/Vol]65 U/LCritically high9-52The [facility] CenterComment on above:Performed By: #### CBC #### [facility] [address] [place] [address] Marcos KarenAnion gap [Moles/Vol]14.7 mmol/LNormalThe [facility] CenterComment on above:Performed By: #### CBC #### [facility] [address] [place] [address] Marcos KarenAST [Catalytic activity/Vol]41 U/LCritically izrd87-62Bla [facility] CenterComment on above:Performed By: #### CBC #### [facility] [address] [place] [address] Marcos KarenBilirubin [Mass/Vol]0.4 mg/dLNormal0.2-1.3TCorey Hospital Comment on above:Performed By: #### CBC #### [facility] [address] [place] [address] Marcos KarenCalcium [Mass/Vol]9.4 mg/dLNormal8.4-10.2The [facility] Comment on above:Performed By: #### CBC #### [facility] [address] [id number] Marcos KarenChloride [Moles/Vol]101 mmol/DKmmuzz61-068Zbj [facility] Comment on above:Performed By: #### CBC #### [facility] [address] [place] [address] Marcos KarenCO2 [Moles/Vol]26.0 mmol/LLtqdln07.0-30.0The [facility] Comment on above:Performed By: #### CBC #### [facility] [address] [address] Marcos KarenCreatinine [Mass/Vol]1.64 mg/dLCritically high0.52-1.04The [facility] CenterComment on above:Performed By: #### CBC #### [facility] [address] [place] [address] Marcos KarenEGFR-AF VQCIMOUC82 mL/min/1.56m9Olefnggcft low>=60The [facility] CenterComment on above:Performed By: #### CBC #### [facility] [address] [place] [address] Marcos KarenEGFR-NON AF TTKUBVHD46 mL/min/1.06n5Mlvvzmsiah low>=60The [facility] CenterComment on above:Performed By: #### CBC #### [facility] [address] [place] [address] Marcos KarenGlobulin (S) [Mass/Vol]3.3 g/dLNormalThe [facility] CenterComment on above:Performed By: #### CBC #### [facility] [address] [place] [address] Marcos KarenGlucose [Mass/Vol]83 mg/zCXlnbfl19-927Bzy [facility] CenterComment on above:Performed By: #### CBC #### [facility] [address] [place] [address] Marcos KarenPotassium [Moles/Vol]4.7 mmol/LNormal3.4-5.0The [facility] Comment on above:Performed By: #### CBC #### [facility] [address] [address] Marcos KarenProtein [Mass/Vol]7.1 g/dLNormal6.1-8.2The [facility] CenterComment on above:Performed By: #### CBC #### [facility] [address] [place] [address] Marcos KarenSodium [Moles/Vol]137 mmol/FCbjans959-854Vzv [facility] Comment on above:Performed By: #### CBC #### [facility] [address] [place] [address] Marcos KarenUrea nitrogen [Mass/Vol]32.0 mg/dLCritically high7.0-17.0The [facility] CenterComment on above:Performed By: #### CBC #### [facility] [address] [place] [address] Marcos KarenUrea nitrogen/Creatinine [Mass ratio]19.5 mg/mgNoMercy Health Perrysburg HospitalComment on above:Performed By: #### CBC #### [facility] [address] [place] [address] Marcos KarenTSHon 88-18-2461CSD3.331 uIU/mLNormal0.470-4.680The [facility] CenterComment on above:Performed By: #### CBC #### [facility] [address] [place] [address] Marcos KarenTSH RANGESEE BELOWMcCullough-Hyde Memorial HospitalComment on above:Result Comment: <0.34 UIU/ml HYPERTHYROID 0.34-5.60 UIU/ml EUTHYROID >5.60 UIU/ml HYPOTHYROIDPerformed By: ####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
[2025-03-26 10:42] LABS: Hematocrit 41.5 % (36.0-48.0); Hemoglobin 14.1 g/dL (12.0-16.0); Immature Granulocytes Abs Auto 0.01 10^3/uL (0.00-0.03); Immature Granulocytes Pct Auto 0.2 % (0.0-0.5); Lymphocytes Absolute Auto 2.7 10^3/uL (1.2-3.8); Mean Corpuscular HGB Conc 34.0 g/dL (29.9-35.2); Mean Corpuscular Hemoglobin 32.2 pg (26.7-34.0); Mean Corpuscular Volume 94.7 fL (81.0-99.0); Platelet Count 213 10^3/uL (150-450); Red Blood Count 4.38 10^6/uL (4.20-5.40); White Blood Count 5.6 10^3/uL (4.0-11.0)
[2025-03-26 11:34] LABS: Alanine Aminotransferase 23 U/L (14-59); Albumin Globulin Ratio 1.0; Albumin Level 3.5 g/dL (3.4-5.0); Alkaline Phosphatase 54 U/L (46-116); Anion Gap 9.5; Aspartate Amino Transferase 23 U/L (15-37); Blood Urea Nitrogen 17.0 mg/dL (7.0-18.0); Calcium 9.0 mg/dL (8.5-10.1); Carbon Dioxide 29.3 mmol/L (21.0-32.0); Chloride 106 mmol/L (98-107); Cholesterol 196 mg/dL (<=200); Estimated GFR (African America >60 (>=60 mL/min/1.73m^2); Estimated GFR (Non-African Ame >60 (>=60 mL/min/1.73m^2); Free T3 1.70 pg/mL (2.18-3.98); Globulin 3.4 g/dL; Glucose 85 mg/dL (74-106); HDL Cholesterol 75 mg/dL (40-60); Potassium 4.8 mmol/L (3.5-5.1); Sodium 140 mmol/L (136-145); Thyroid Stimulating Hormone 0.850 uIU/mL (0.358-3.740); Total Protein 6.9 g/dL (6.4-8.2); Triglycerides 41 mg/dL (<=150); VLDL CHOLESTEROL 8.2 mg/dL
== END 2025-03-26 10:14 | disposition home or self-care (01) ==
LOC: LAB 10:21
PROVIDERS: PCP Family Medicine; Visit Provider Family Medicine
DX: E78.5 Hyperlipidemia, unspecified (principal); I10 Essential (primary) hypertension; D64.9 Anemia, unspecified; E03.9 Hypothyroidism, unspecified; E55.9 Vitamin D deficiency, unspecified
CPT/HCPCS: 36415; 80053; 80061; 82306; 83036; 84436; 84443; 84481; 85025